=== PATIENT | male | born 1965 | race Caucasian/White ===

== ENCOUNTER 2023-02-20 11:14 | Outpatient (OUT) | payer OTHER, SELFPAY ==
--- NOTE | 2023-02-20 11:29 | PM.CN ---
Consult Note: HPI Data of Consult Patient: known to practice within the last 3 years Requesting Physician: Poly Kurtz NP Primary Care Provider: RICO MCDONNELL Consult Narrative Reason for consult: 3 month f/u Narrative: Jose Forde a pleasant 57 year old male presents for evaluation of chronic back pain responsive to medication therapy, today rating pain 2/10. Patient denies any side effects from current medication regimen. Showing functional improvement. cc:: CC: Poly Kurtz NP Review of Systems ROS Status of ROS 10 or more systems reviewed and unremarkable except as noted in history and below Musculoskeletal Reports: back pain Meds Home Medications and Allergies Home Medications Medication Instructions Recorded Confirmed Type oxycodone-acetaminophen 5 mg-325 1 tab PO DAILY PRN pain #30 tabs 02/20/23 Rx mg tablet (Percocet) Exam Constitutional Documenting provider has reviewed patient's vital signs: yes Common normals: no apparent distress, oriented x3, healthy appearing, alert and well nourished General appearance: cooperative Nutritional appearance: overweight HENMT Common normals: normocephalic, hearing grossly normal bilaterally and moist oral mucous membranes Head and scalp: normocephalic Other: patient requesting keflex for ear infection was seen by urgent care and prescribed drops. encouraged to follow up with PCP Eye Common normals: PERRL Pupil: PERRL Neck & C-Spine Common normals: full ROM General: normal visual inspection Chest Common normals: inspection of chest normal Respiratory Common normals: normal respiratory effort, no retractions and no use of accessory muscles Back & Pelvis Thoracic spine/upper back: ROM limited, pain with ROM and other soft tissue findings (hardware palpable) Lumbar spine/lower back: normal to inspection, lumbar ROM normal and straight leg raise negative bilaterally Extremity Common normals: normal to inspection, full ROM, no joint enlargement, no calf tenderness and no pedal edema Neuro Common normals: oriented x3, CN's II-XII intact bilaterally, moves all extremities, no focal motor deficits, no sensory deficits noted and deep tendon reflexes 2+ bilaterally Sensorium/orientation: alert Motor exam: strength 5/5 throughout and no movement abnormalities noted Psych Common normals: mental status grossly normal, thought process normal, cooperative, affect normal, speech normal and activity/motor behavior normal Speech: normal speech Thought process: normal thought process Results Additional Findings Additional findings: I have checked an OARRS report on this patient today and there are no aberrancies noted in the prescribing history.?? A drug screen was completed and reviewed within the last year, and if there has not been a drug screen completed we ordered one today to monitor higher risk, state monitored pain medication use. As part of providing excellent, safe, comprehensive care, the following was completed at our patient's visit: 1. A medication reconciliation and review to ensure accurate knowledge of current/active medications, including asking our patients to inform us about any [id number] medications or herbal remedies/nutritional supplements/alternative remedies. 2. A review to specifically ensure our patients have had annual screening for: elevated body mass index (BMI), tobacco use, screening for depression, and screening for unhealthy alcohol use. When screening is concerning, patients are provided with education and the specific recommendation to discuss the concerning health issue and treatment options with their primary care provider. Assessment and Plan Assessment and Plan (1) Thoracic spondylosis: (2) Chronic prescription opiate use: Assessment and Plan: I have refilled the patient's opioid prescriptions at the above noted dose and schedule.? I feel these medications are improving the patient's quality of life and allow them to tolerate activities of daily living as well as participate in recreational activity.? The patient does not report intolerable side effects. The patient is NOT opioid naive and non-pharmacologic and non-opioid treatment has failed to significantly relieve the patient's pain and improve functionality. The patient has a diagnosis that is related to a somatic or visceral pain etiology. ? ?? I reviewed with the patient the potential risks and side effects with the use of?opioid medications including but not limited to respiratory depression,? sedation, and even . I verified the patient has access to naloxone should?these effects occur. I advised the patient to avoid the use of any other? sedation substances including alcohol, THC, and benzodiazepines while?taking opioid medications due to the risk of compounding side effects and? detrimental outcomes. I reviewed the [employer]CIAL [employer]OCIATE, pain treatment agreement, urine?drug screen, and opioid start talking forms. The patient was advised to let? their family know they had Naloxone in case they would need to administer?the medication.? ?? A drug screen was completed within the last year, and no aberrancies were noted regarding their use of controlled substances. The patient understands they are subject to the terms and conditions of the pain contract that they have signed. ? ?? I have checked an OARRS report on this patient today and there are no aberrancies noted in the prescribing history.? (3) Muscle spasm: Plan refill and continue percocet 5-325mg QD PRN pain continue tizanidine 8mg HS f/u with pcp for ear infection f/u 3 months
== END 2023-02-20 11:15 | disposition home or self-care (01) ==
PROVIDERS: PCP Family Medicine; Visit Provider Nurse Practitioner
DX: M47.814 Spondylosis without myelopathy or radiculopathy, thoracic region (principal); Z79.891 Long term (current) use of opiate analgesic
CPT/HCPCS: G0463

== ENCOUNTER 2023-05-07 10:42 | Outpatient (OUT) | payer OTHER, SELFPAY ==
--- NOTE | 2023-05-07 11:04 | P.CN_ITS ---
Consult Note: HPI Data of Consult Patient: known to practice within the last 3 years Requesting Physician: Poly Kurtz NP Primary Care Provider: RICO MCDONNELL Consult Narrative Reason for consult: f/u Narrative: Jose Forde a pleasant 57 year old male presents for evaluation and management of chronic back pain post surgical repair. Patient has been doing well on current medication regimen, noticing improvement in pain and function, no side effects from medications. Pain today 2/10 pressure worse with activity, improved with rest. cc:: CC: Poly Kurtz NP Review of Systems ROS Status of ROS 10 or more systems reviewed and unremarkable except as noted in history and below Musculoskeletal Reports: back pain Meds Home Medications and Allergies Home Medications Medication Instructions Recorded Confirmed Type atorvastatin 10 mg tablet (Lipitor) 10 mg PO DAILY 02/20/23 02/20/23 History hydrochlorothiazide 25 mg tablet 25 mg PO DAILY 02/20/23 02/20/23 History losartan 100 mg tablet 100 mg PO DAILY 02/20/23 02/20/23 History metoprolol tartrate 100 mg tablet 100 mg PO BID 02/20/23 02/20/23 History (Lopressor) oxycodone-acetaminophen 5 mg-325 1 tab PO DAILY 02/20/23 02/20/23 History mg tablet (Percocet) oxycodone-acetaminophen 5 mg-325 1 tab PO DAILY PRN pain #30 tabs 02/20/23 Rx mg tablet (Percocet) spironolactone 25 mg tablet 25 mg PO DAILY 02/20/23 02/20/23 History (Aldactone) tizanidine 6 mg capsule 8 mg PO DAILY 02/20/23 02/20/23 History oxycodone-acetaminophen 5 mg-325 1 tab PO DAILY PRN pain #30 tabs 03/25/23 Rx mg tablet (Percocet) Allergies Allergy/AdvReac Type Severity Reaction Status Date / Time No Known Drug Allergies Allergy Verified 02/20/23 12:36 Exam Constitutional Documenting provider has reviewed patient's vital signs: yes Common normals: no apparent distress, oriented x3, healthy appearing, alert and well nourished General appearance: cooperative Nutritional appearance: overweight HENMT Common normals: normocephalic, hearing grossly normal bilaterally and moist oral mucous membranes Head and scalp: normocephalic Eye Common normals: PERRL Pupil: PERRL Neck & C-Spine Common normals: full ROM General: normal visual inspection Chest Common normals: inspection of chest normal Respiratory Common normals: normal respiratory effort, no retractions and no use of accessory muscles Back & Pelvis Thoracic spine/upper back: ROM limited, pain with ROM and other soft tissue findings (hardware palpable) Lumbar spine/lower back: normal to inspection, lumbar ROM normal and straight leg raise negative bilaterally Extremity Common normals: normal to inspection, full ROM, no joint enlargement, no calf tenderness and no pedal edema Neuro Common normals: oriented x3, CN's II-XII intact bilaterally, moves all extremities, no focal motor deficits, no sensory deficits noted and deep tendon reflexes 2+ bilaterally Sensorium/orientation: alert Motor exam: strength 5/5 throughout and no movement abnormalities noted Psych Common normals: mental status grossly normal, thought process normal, cooperative, affect normal, speech normal and activity/motor behavior normal Speech: normal speech Thought process: normal thought process Results Additional Findings Additional findings: I have checked an OARRS report on this patient today and there are no aberrancies noted in the prescribing history.?? A drug screen was completed and reviewed within the last year, and if there has not been a drug screen completed we ordered one today to monitor higher risk, state monitored pain medication use. As part of providing excellent, safe, comprehensive care, the following was completed at our patient's visit: 1. A medication reconciliation and review to ensure accurate knowledge of current/active medications, including asking our patients to inform us about any [id number] medications or herbal remedies/nutritional supplements/alternative remedies. 2. A review to specifically ensure our patients have had annual screening for: elevated body mass index (BMI), tobacco use, screening for depression, and screening for unhealthy alcohol use. When screening is concerning, patients are provided with education and the specific recommendation to discuss the concerning health issue and treatment options with their primary care provider. Assessment and Plan Assessment and Plan (1) Chronic prescription opiate use: Assessment and Plan: Medications help patient to complete ADLs, care for self, work I have refilled the patient's opioid prescriptions at the above noted dose and schedule.? I feel these medications are improving the patient's quality of life and allow them to tolerate activities of daily living as well as participate in recreational activity.? The patient does not report intolerable side effects. The patient is NOT opioid naive and non-pharmacologic and non-opioid treatment has failed to significantly relieve the patient's pain and improve functionality. The patient has a diagnosis that is related to a somatic or visceral pain etiology. ? ?? I reviewed with the patient the potential risks and side effects with the use of?opioid medications including but not limited to respiratory depression,? sedation, and even . I verified the patient has access to naloxone should?these effects occur. I advised the patient to avoid the use of any other? sedation substances including alcohol, THC, and benzodiazepines while?taking opioid medications due to the risk of compounding side effects and? detrimental outcomes. I reviewed the [employer] CH[employer]LYST, pain treatment agreement, urine?drug screen, and opioid start talking forms. The patient was advised to let? their family know they had Naloxone in case they would need to administer?the medication.? ?? A drug screen was completed within the last year, and no aberrancies were noted regarding their use of controlled substances. The patient understands they are subject to the terms and conditions of the pain contract that they have signed. ? ?? I have checked an OARRS report on this patient today and there are no aberrancies noted in the prescribing history.? (2) Thoracic spondylosis: (3) Muscle spasm: Plan refill and continue percocet 5-325mg QD PRN pain continue tizanidine 8mg HS continue PRN ibuprofen f/u 3 months for medication management
== END 2023-05-07 10:43 | disposition home or self-care (01) ==
PROVIDERS: PCP Family Medicine; Visit Provider Nurse Practitioner
DX: M47.814 Spondylosis without myelopathy or radiculopathy, thoracic region (principal); Z79.891 Long term (current) use of opiate analgesic; M62.838 Other muscle spasm
CPT/HCPCS: G0463

== ENCOUNTER 2023-08-06 10:23 | Outpatient (OUT) | payer OTHER, SELFPAY ==
--- OUTSIDE RECORDS SUMMARY | 2023-08-06 10:26 | XMS_ITS | CCD ---
Author Name Unknown Address [address] [place] [id number] Organization [facility] Care Team Providers Care Soubrette Name Role Phone LAKSHMIPATHY ., NARENDRANATH Admitting Ryann vailable JOANNESHMIPATHY ., NARENDRANATH Attending Ryann vailable SATHYA, DR GÓMEZ Primary Care Unavailable HALKER ., FILIBERTO Consulting Unavailable NEWTON ., DR MATHIEU Ivory Admitting Unavailable NEWTON ., DR MATHIEU Ivory Attending Unavailable SATHYA, DR GÓMEZ [facility] Care Unavailable OSEI ., NICKOLAS Consulting Unavailable SATHYA, DR GÓMEZ [facility] Care Unavailable OSEI ., NICKOLAS Admitting Unavailable OSEI ., NICKOLAS Attending Unavailable GA, DR THANG Escobedo Consulting Unavailable OSEI ., NICKOLAS Consulting Unavailable NEWTON ., DR MATHIEU Ivory Admitting Unavailable NEWTON ., DR MATHIEU Ivory Attending Unavailable SATHYA, DR GÓMEZ [facility] Care Unavailable OSEI ., NICKOLAS Consulting Unavailable NEWTON ., DR MATHIEU Ivory Admitting Unavailable NEWTON ., DR MATHIEU Ivory Attending Unavailable SATHYA, DR GÓMEZ [facility] Care Unavailable OSEI ., NICKOLAS Consulting Unavailable NEWTON ., DR MATHIEU Ivory Admitting Unavailable NEWTON ., DR MATHIEU Ivory Attending Unavailable SATHYA, DR GÓMEZ [facility] Unavailable OSEI ., NICKOLAS Consulting Unavailable RICO MCDONNELL Attending Unavailable Problems Active Problems Problem Classification Problem Date Documented Date Episodic/Chronic Osteoarthritis (5 sources) Unilateral primary osteoarthritis, left knee; Translations: [UNI PRIM OSTEOARTHRITIS LT KNEE] Onset: 02-04-2022 Chronic Spondylosis; intervertebral disc disorders; other back problems (6 sources) Spondylosis without myelopathy or radiculopathy, thoracic region; Translations: [Other intervertebral disc degeneration, thoracic region] Onset: 11-08-2021 Chronic Spondylosis; intervertebral disc disorders; other back problems (1 source) Pain in thoracic spine; Translations: [PAIN IN THORACIC SPINE] Onset: 08-05-2022 Episodic Unclassified (4 sources) LOW BACK PAIN, UNSPECIFIED; Translations: [LOW BACK PAIN, UNSPECIFIED] Onset: 05-06-2022 Past or Other Problems Problem Classification Problem Date Documented Da te Episodic/Chronic Other non-traumatic joint disorders (1 source) Effusion, left knee; Translations: [EFFUSION LEFT KNEE] Onset: 02-01-2022 Episodic Other non-traumatic joint disorders (4 sources) Pain in left knee; Translations: [PAIN IN LEFT KNEE] Onset: 01-31-2022 Episodic Unclassified (1 source) LOW BACK PAIN, UNSPECIFIED; Translations: [LOW BACK PAIN, UNSPECIFIED] Onset: 05-02-2022 Encounters Encounter Date Encounter Type Care Provider Facility Start: 05-08-2023 End: 05-08-2023 ambulatory RICO MCDONNELL Not Available Start: 11-01-2022 End: 11-02-2022 ambulatory ALEJANDRO WILSON . Facility: Start: 08-01-2022 End: 08-02-[address] MATHIEU NEWTON . Facility:[facility] Start: 05-02-2022 End: 05-03-[address] MATHIEU NEWTON . Facility:[facility] Start: 01-31-2022 End: 02-01-[address] RICO MCDONNELL Facility:[facility] Start: 01-31-2022 End: 02-01-[address] MATHIEU NEWTON . Facility:[facility] Start: 11-08-2021 End: 11-09-[address] MATHIEU NEWTON . Facility: Payers Date Payer Category Payer Private Health Insurance [id number] 1965 Unknown [id number] 2.16.84 [id number] 1965 Unknown [id number] 2.16.84 [id number] 1965 Unknown [id number] 2.16.84 [id number] 1965 Unknown [id number] 2.16.84 [id number] 1965 Unknown [id number] 2.16.84 [id number] 1965 Unknown [id number] 2.16.84 [id number] 1965 Unknown [id number] 1959 Self-pay 1959 Unknown [id number] Consultation note 08-01-2022 Note Date & Type Note Facility 08-01-2022 Note CONSULTATION CONSULTATION DATE: 08/01/2022 HISTORY OF PRESENT ILLNESS: This is a 67-year-old gentleman who returns to the clinic for a three month follow up for his chronic mid back pain and left knee pain. Patient did have left knee x-rays completed, which were reviewed, showing moderate tricompartmental osteoarthropathy with joint space narrowing. In regards to the patient's back, he states he has been maintaining and feels his pain is manageable. His pain is rated at 2/10 and described as achy. It will increase with activities such housework, lifting, reaching and bending. He does use heat occasionally which does decrease his pain. Medications include ibuprofen 400 mg 2-3 times a day, Percocet 5/325 daily and tizanidine 8 mg at night time. Patient's REVIEW OF SYSTEMS / PAST MEDICAL HISTORY / ALLERGIES and IMAGES have been reviewed and noted on the chart. PHYSICAL EXAM: VITAL SIGNS: Blood pressure is 136/91. Heart rate is 89. Temperature is 97.1. He is 5'9 and weighs 109 kg. GENERAL IMPRESSION: Pleasant, appropriate, in no acute distress. FOCUSED EXAM - BACK: Range of motion is functional in lateral rotation and flexion/extension. Mild point tenderness along the thoracic facets of T3, T4, T5, T6 upon compression of the thoracic facets. Thoracic trapezius muscles are spasmodic bilaterally, right greater than left. MUSCULOSKELETAL: Upper and lower extremities motor is 5/5. Patient ambulates unassisted. NEUROLOGICAL: Radicular sensory is intact. Negative polyneuropathy. DIAGNOSIS: Left knee osteoarthritis, chronic lower back pain and thoracic pain. PLAN: We will refill his Percocet 5/325 daily and I encouraged him to do extension exercises multiple times throughout the day. We will see him in three months' time unless otherwise indicated. Patient agrees with this plan. [facility] Consultation note 05-02-2022 Note Date & Type Note Facility 05-02-2022 Note CONSULTATION CONSULTATION DATE: 05/02/2022 HISTORY OF PRESENT ILLNESS: This is a 56-year-old gentleman returning to the clinic for a three month appointment for medication maintenance and refills. Patient has been a [facility] patient of the [facility] and has mid and lower back pain. Today, his pain is 2/10 at rest, will increase to 5/10 with activities. Those activities are twisting, pushing, pulling, standing, walking, bending and lifting. Riding in the car for a prolonged period of time results in leg numbness. He does use heat which is beneficial. Medications include Percocet 5/325 daily p.r.n., tizanidine 8 mg q.h.s. and ibuprofen. He is compliant with a vitamin regimen. He denies any new pain pattern, injuries or falls. Patient's REVIEW OF SYSTEMS / PAST MEDICAL HISTORY / ALLERGIES and IMAGES have been reviewed and they are noted on the chart. PHYSICAL EXAM: VITAL SIGNS: Blood pressure is 145/88. Heart rate is 56. Temperature is 97.7. He is 5'9 , weighs 106 kg. GENERAL IMPRESSION: Pleasant, appropriate, no acute distress. FOCUSED EXAM - BACK: Range of motion is functional in lateral rotation and flexion/extension. Paravertebral muscles are taut, right greater than left and spasmodic. Mild spinal axial pain to compression along the thoracic facets of T9, T10 and T11, T12 bilaterally. MUSCULOSKELETAL: Motor is intact, 5/5 bilaterally. Patient has good muscle tone and a stable gait. NEUROLOGICALLY: Patient is cognitively intact and radicular sensory is intact. Negative polyneuropathy. DIAGNOSIS: Chronic lower back pain, thoracic pain, thoracic spondylosis. PLAN: We will refill his Percocet 5/325 daily and Zanaflex 8 mg q.h.s. for a 30 day supply. Education was reinforced regarding nutrition, vitamins and supportive measures, such as heat and a menthol heat rub. We will see him in three months' time unless otherwise indicated. Patient agrees with this plan. [facility] Clinical Note 01-31-2022 Note Date & Type Note Facility 01-31-2022 Note PROCEDURE: XR KNEE L T 4V or > COMPARISON: None. HISTORY: Pain in left knee FINDINGS: BONES:No acute fracture or dislocation. Moderate tricompartmental osteoarthropathy with joint space narrowing marginal osteophyte formation. Surgical jay from prior anterior cruciate ligament repair. SOFT TISSUES:Negative. No visible soft tissue swelling. EFFUSION:Moderate to large suprapatellar joint effusion OTHER: Negative. IMPRESSION: Moderate osteoarthritis with joint effusion Electronically authenticated by: THANG KOROMA Date: 2022-01-31 18:30 [facility] Consultation note 01-31-2022 Note Date & Type Note Facility 01-31-2022 Note CONSULTATION CONSULTATION DATE: 01/31/2022 HISTORY OF PRESENT ILLNESS: This is a 56-year-old gentleman, returning to the clinic for a three month follow up for his chronic middle back pain and left knee pain. He was last seen on 11/08/2021 which, at that time, he had low level pain rated at 2/10 and an ache. Today, he does rate his pain 2/10, but it is primarily in his left knee. He did have an ACL repair back in the mid 1980s and has otherwise done well, with the exception of this past month or so, as he is feeling increased pain with grinding, going up stairs and physical activity. He is reporting that his mid back pain is about a 1/10 and uses his pool daily to do pool exercises and extension exercises. He does have an inversion table but is not using that. He is in need of a Zanaflex refill, 8 mg nightly. Current medications include Lipitor, Percocet 5/325 daily, Zanaflex 8 mg q.h.s. Patient's REVIEW OF SYSTEMS / PAST MEDICAL HISTORY / ALLERGIES and IMAGES have been reviewed and they are noted on the chart. PHYSICAL EXAM: VITAL SIGNS: Blood pressure 146/85, heart rate is 68. Temperature is 97.5. He is 5'9 , weighs 104.1 kg. GENERAL APPEARANCE: Pleasant, appropriate, no acute distress. FOCUSED EXAM: Left knee with slight anterior medial point tenderness to deep compression. Range of motion is intact. Increased pain in flexion. No crepitus or effusion noted. BACK: Range of motion is function in lateral rotation and flexion/extension. Paravertebral tightness is noted, mid thoracic and up. Mild reproduction of spinal axial pain to compression of T6 and T7 to the right. MUSCULOSKELETAL: Motor is intact bilateral lower extremities, 5/5. NEUROLOGICALLY: Radicular sensory is intact. Negative polyneuropathy. Bilateral patellar and Achilles reflexes are +2. IMPRESSION: Left knee pain, left knee osteoarthritis and thoracic pain. PLAN: We will obtain baseline knee x-rays with it including four views. I did discuss steroid knee injections with the patient. He would like to hold off at this time, but may think of it as the cold weather approaches and his pain increases. Education was given regarding continuing extension exercises, pool exercises as well inversion table daily. We will refill his Zanaflex 8 mg q.h.s. Patient agrees with the plan of care, will be seen in three months' time unless otherwise indicated. [facility] Consultation note 11-08-2021 Note Date & Type Note Facility 11-08-2021 Note CONSULTATION CONSULTATION DATE: 11/08/2021 This is a pleasant 56-year-old gentleman returning to the clinic for his 3-month follow-up for his chronic thoracic back pain. The patient does have a history of T12 compression fracture and thoracic degenerative disk. His pain is minimal today, described as 2 out of 10 and an ache. It at this time does not keep him from activities. Twisting, turning, pushing, pulling, reaching and lifting does aggravate his pain. The use of heat and lying down decreases his pain. He denies any new radicular pain or pain pattern. He is just here for medication refill today. The patient's current medications are Zanaflex 4 mg q.h.s. which she needs a refill of, Percocet 5/325 q. day and Lipitor 10 mg q. day. He does take multivitamins including turmeric and vitamin C. REVIEW OF SYSTEMS, PAST MEDICAL HISTORY, ALLERGIES AND IMAGES: Have been reviewed and noted in the chart. PHYSICAL EXAM: VITAL SIGNS: Blood pressure 131/81, heart rate is 56, temperature is 97.3. Height is 5'9 , weighs 105 kg. GENERAL APPEARANCE: Pleasant, appropriate, no acute distress. FOCUSED EXAM: BACK: Reproduction of the spinoaxial pain noted to direct compression along the thoracic facets of T10, T11, T12, L1 bilaterally. Paravertebral muscles are taut but non-spasmodic. Range of motion is functional, lateral rotation and flexion-extension. MUSCULOSKELETAL: Lower extremities area intact, 4 out of 5 bilaterally. Does not use assistive device. Ambulates with a steady gait. NEUROLOGICAL: Negative polyneuropathy, patellar Achilles tendons are +1 bilaterally. DIAGNOSIS: Thoracic spondylosis, thoracic degenerative disk and history of T12 compression fracture. PLAN: Overall the patient is doing great. We will continue to maintain his medications of Percocet 5/325 q. day and Zanaflex 8 mg q. h.s. Nutrition and vitamin importance was discussed as well. We will follow the patient up in three months' time unless otherwise indicated and the patient agrees with the plan of care. [facility] Signed and Approved by: NICKOLAS OSEI . 11/12/2021 15:06:00 [facility] Summary Purpose Family History No Family History Records FoundNo Family History Records Found Advance Directives No Advanced Directives Records FoundNo Advanced Directives Records Found Additional Source Comments (unrecognized sect ion and content) No Status Records FoundNo Status Records Found INFORMATION SOURCE (unrecogn ized section and content) DATE CREATED AUTHOR 11/02/2022 [facility] DATE CREATED AUTHOR 'S ORGANIZ ATION 05/10/2023 [facility] EPIC FOR RECORDS PERTAINING TO PATIENTS WHO ARE OR HAVE BEEN ENROLLED IN A CHEMICAL DEPENDENCY/SUBSTANCEABUSE PROGRAM, SOME INFORMATION MAY BE OMITTED. This clinical summary was aggregated from multiple sources. Caution should be exercised in using it in the provision of clinical care. This summary normalizes information from multiple sources, and as a consequence, information in this document may materially change the coding, format and clinical context of patient data. In addition, data may be omitted in some cases. CLINICAL DECISIONS SHOULD BE BASED ON THE PRIMARY CLINICAL RECORDS. [facility] [employer] provides no warranty or guarantee of the accuracy or completeness of information in this document.
--- NOTE | 2023-08-06 10:51 | P.CN_ITS ---
Consult Note: HPI Data of Consult Patient: known to practice within the last 3 years Requesting Physician: Poly Kurtz NP Primary Care Provider: RICO MCDONNELL Consult Narrative Reason for consult: f/u Narrative: Jose Forde a pleasant 57 year old male presents for evaluation and management of chronic back pain post surgical repair. Patient has been doing well on current medication regimen, noticing improvement in pain and function, no side effects from medications. Pain today 2/10 pressure worse with activity, improved with rest. patient reports no changes since last. cc:: CC: Poly Kurtz NP Review of Systems ROS Status of ROS 10 or more systems reviewed and unremark able except as noted in history and below Musculoskeletal Reports: back pain Meds Home Medications and Allergies Home Medications Medication Instructions Recorded Confirmed Type atorvastatin 10 mg tablet (Lipitor) 10 mg PO DAILY 02/20/23 02/20/23 History hydrochlorothiazide 25 mg tablet 25 mg PO DAILY 02/20/23 02/20/23 History losartan 100 mg tablet 100 mg PO DAILY 02/20/23 02/20/23 History metoprolol tartrate 100 mg tablet 100 mg PO BID 02/20/23 02/20/23 History (Lopressor) oxycodone-acetaminophen 5 mg-325 1 tab PO DAILY 02/20/23 02/20/23 History mg tablet (Percocet) oxycodone-acetaminophen 5 mg-325 1 tab PO DAILY PRN pain #30 tabs 02/20/23 Rx mg tablet (Percocet) spironolactone 25 mg tablet 25 mg PO DAILY 02/20/23 02/20/23 History (Aldactone) tizanidine 6 mg capsule 8 mg PO DAILY 02/20/23 02/20/23 History oxycodone-acetaminophen 5 mg-325 1 tab PO DAILY PRN pain #30 tabs 03/25/23 Rx mg tablet (Percocet) oxycodone-acetaminophen 5 mg-325 1 tab PO DAILY PRN pain #30 tabs 05/07/23 Rx mg tablet (Percocet) tizanidine 4 mg capsule 8 mg (2 x 4 mg) PO .qhs PRN muscle 05/07/23 Rx spasticity #180 caps oxycodone-acetaminophen 5 mg-325 1 tab PO DAILY PRN pain #30 tabs 05/29/23 Rx mg tablet (Percocet) oxycodone-acetaminophen 5 mg-325 1 tab PO DAILY PRN pain #30 tabs 06/25/23 Rx mg tablet (Endocet) Allergies Allergy/AdvReac Type Severity Reaction Status Date / Time No Known Drug Allergies Allergy Verified 02/20/23 12:36 Exam Constitutional Documenting provider has reviewed patient's vital signs: yes Common normals: no apparent distress, oriented x3, healthy appearing, alert and well nourished General appearance: cooperative Nutritional appearance: overweight HENMT Common normals: normocephalic, hearing grossly normal bilaterally and moist oral mucous membranes Head and scalp: normocephalic Eye Common normals: PERRL Pupil: PERRL Neck & C-Spine Common normals: full ROM General: normal visual inspection Chest Common normals: inspection of chest normal Respiratory Common normals: normal respiratory effort, no retractions and no use of accessory muscles Back & Pelvis Thoracic spine/upper back: ROM limited, pain with ROM and other soft tissue findings (hardware palpable) Lumbar spine/lower back: normal to inspection, lumbar ROM normal and straight leg raise negative bilaterally Extremity Common normals: normal to inspection, full ROM, no joint enlargement, no calf tenderness and no pedal edema Neuro Common normals: oriented x3, CN's II-XII intact bilaterally, moves all extremities, no focal motor deficits, no sensory deficits noted and deep tendon reflexes 2+ bilaterally Sensorium/orientation: alert Motor exam: strength 5/5 throughout and no movement abnormalities noted Psych Common normals: mental status grossly normal, thought process normal, cooperative, affect normal, speech normal and activity/motor behavior normal Speech: normal speech Thought process: normal thought process Results Additional Findings Additional findings: I have checked an [place]AR[place] report on this patient today and there are no aberrancies noted in the prescribing history.?? A drug screen was completed and reviewed within the last year, and if there has not been a drug screen completed we ordered one today to monitor higher risk, state monitored pain medication use. As part of providing excellent, safe, comprehensive care, the following was completed at our patient's visit: 1. A medication reconciliation and review to ensure accurate knowledge of current/active medications, including asking our patients to inform us about any [id number] medications or herbal remedies/nutritional supplements/alternative remedies. 2. A review to specifically ensure our patients have had annual screening for: elevated body mass index (BMI), tobacco use, screening for depression, and screening for unhealthy alcohol use. When screening is concerning, patients are provided with education and the specific recommendation to discuss the concerning health issue and treatment options with their primary care provider. Assessment and Plan Assessment and Plan (1) Chronic prescription opiate use: Assessment and Plan: Medications help patient to complete ADLs, care for self, work I have refilled the patient's opioid prescriptions at the above noted dose and schedule.? I feel these medications are improving the patient's quality of life and allow them to tolerate activities of daily living as well as participate in recreational activity.? The patient does not report intolerable side effects. The patient is NOT opioid naive and non-pharmacologic and non-opioid treatment has failed to significantly relieve the patient's pain and improve functionality. The patient has a diagnosis that is related to a somatic or visceral pain etiology. ? ?? I reviewed with the patient the potential risks and side effects with the use of?opioid medications including but not limited to respiratory depression,? sedation, and even . I verified the patient has access to naloxone should?these effects occur. I advised the patient to avoid the use of any other? sedation substances including alcohol, THC, and benzodiazepines while?taking opioid medications due to the risk of compounding side effects and? detrimental outcomes. I reviewed the [employer], pain treatment agreement, urine?drug screen, and opioid start talking forms. The patient was advised to let? their family know they had Naloxone in case they would need to administer?the medication.? ?? A drug screen was completed within the last year, and no aberrancies were noted regarding their use of controlled substances. The patient understands they are subject to the terms and conditions of the pain contract that they have signed. ? ?? I have checked an OARRS report on this patient today and there are no aberrancies noted in the prescribing history.? (2) Thoracic spondylosis: (3) Muscle spasm: Plan Update UDS today continue percocet 5-325mg QD PRN pain continue tizanidine 8mg HS continue PRN ibuprofen f/u 3 months for medication management
== END 2023-08-06 10:24 | disposition home or self-care (01) ==
PROVIDERS: PCP Family Medicine; Visit Provider Nurse Practitioner
DX: Z79.891 Long term (current) use of opiate analgesic (principal); M62.838 Other muscle spasm; M47.814 Spondylosis without myelopathy or radiculopathy, thoracic region
CPT/HCPCS: G0463

== ENCOUNTER 2023-11-05 09:49 | Outpatient (OUT) | payer OTHER, SELFPAY ==
--- NOTE | 2023-11-05 10:19 | P.CN_ITS ---
Consult Note: HPI Data of Consult Patient: known to practice within the last 3 years Requesting Physician: Poly Kurtz NP Primary Care Provider: RICO MCDONNELL Consult Narrative Reason for consult: f/u Narrative: Jose Forde a pleasant 57 year old male presents for evaluation and management of chronic back pain post surgical repair. Patient has been doing well on current medication regimen, noticing improvement in pain and function, no side effects from medications. Pain today 4/10 pressure worse with activity, improved with rest. patient reports increase in muscle pain and stiffness due to recent strenuous activity. cc:: CC: Poly Kurtz NP Review of Systems ROS Status of ROS 10 or more systems reviewed and unremark able except as noted in history and below Musculoskeletal Reports: back pain Meds Home Medications and Allergies Home Medications ?Medication ?Instructions ?Recorded ?Confirmed ?Type atorvastatin 10 mg tablet (Lipitor) 10 mg PO DAILY 02/20/23 02/20/23 History hydrochlorothiazide 25 mg tablet 25 mg PO DAILY 02/20/23 02/20/23 History losartan 100 mg tablet 100 mg PO DAILY 02/20/23 02/20/23 History metoprolol tartrate 100 mg tablet 100 mg PO BID 02/20/23 02/20/23 History (Lopressor) oxycodone-acetaminophen 5 mg-325 1 tab PO DAILY 02/20/23 02/20/23 History mg tablet (Percocet) oxycodone-acetaminophen 5 mg-325 1 tab PO DAILY PRN pain #30 tabs 02/20/23 Rx mg tablet (Percocet) spironolactone 25 mg tablet 25 mg PO DAILY 02/20/23 02/20/23 History (Aldactone) tizanidine 6 mg capsule 8 mg PO DAILY 02/20/23 02/20/23 History oxycodone-acetaminophen 5 mg-325 1 tab PO DAILY PRN pain #30 tabs 03/25/23 Rx mg tablet (Percocet) oxycodone-acetaminophen 5 mg-325 1 tab PO DAILY PRN pain #30 tabs 05/07/23 Rx mg tablet (Percocet) tizanidine 4 mg capsule 8 mg (2 x 4 mg) PO .qhs PRN muscle 05/07/23 Rx spasticity #180 caps oxycodone-acetaminophen 5 mg-325 1 tab PO DAILY PRN pain #30 tabs 05/29/23 Rx mg tablet (Percocet) oxycodone-acetaminophen 5 mg-325 1 tab PO DAILY PRN pain #30 tabs 06/25/23 Rx mg tablet (Endocet) oxycodone-acetaminophen 5 mg-325 1 tab PO DAILY PRN pain #30 tabs 08/06/23 Rx mg tablet (Percocet) tizanidine 4 mg tablet 8 mg (2 x 4 mg) PO BEDTIME PRN 08/06/23 Rx muscle spasticity #180 tabs oxycodone-acetaminophen 5 mg-325 1 tab PO DAILY PRN pain #30 tabs 08/27/23 Rx mg tablet (Percocet) oxycodone-acetaminophen 5 mg-325 1 tab PO DAILY PRN pain #30 tabs 10/01/23 Rx mg tablet (Percocet) Allergies Allergy/AdvReac Type Severity Reaction Status Date / Time No Known Drug Allergies Allergy Verified 02/20/23 12:36 Exam Constitutional Documenting provider has reviewed patient's vital signs: yes Common normals: no apparent distress, oriented x3, healthy appearing, alert and well nourished General appearance: cooperative Nutritional appearance: overweight HENMT Common normals: normocephalic, hearing grossly normal bilaterally and moist oral mucous membranes Head and scalp: normocephalic Eye Common normals: PERRL Pupil: PERRL Neck & C-Spine Common normals: full ROM General: normal visual inspection Chest Common normals: inspection of chest normal Respiratory Common normals: normal respiratory effort, no retractions and no use of accessory muscles Back & Pelvis Thoracic spine/upper back: ROM limited, pain with ROM, paraspinal muscle tenderness and other soft tissue findings (hardware palpable) Lumbar spine/lower back: normal to inspection, lumbar ROM normal and straight leg raise negative bilaterally Extremity Common normals: normal to inspection, full ROM, no joint enlargement, no calf tenderness and no pedal edema Neuro Common normals: oriented x3, CN's II-XII intact bilaterally, moves all extremities, no focal motor deficits, no sensory deficits noted and deep tendon reflexes 2+ bilaterally Sensorium/orientation: alert Motor exam: strength 5/5 throughout and no movement abnormalities noted Psych Common normals: mental status grossly normal, thought process normal, cooperative, affect normal, speech normal and activity/motor behavior normal Speech: normal speech Thought process: normal thought process Results Additional Findings Additional findings: If on a controlled substance or opioids, I have checked an OARRS report on this patient and there are no aberrancies noted in the prescribing history.??If on a controlled substance or opioid a drug screen was completed and reviewed within the last year, and if there has not been a drug screen completed we ordered one today to monitor higher risk, state monitored pain medication use. As part of providing excellent, safe, comprehensive care, the following was completed at our patient's visit: 1. A medication reconciliation and review to ensure accurate knowledge of current/active medications, including asking our patients to inform us about any tmxk-haf-ljyqnnw medications or herbal remedies/nutritional supplements/alternative remedies. 2. A review to specifically ensure our patients have had annual screening for screening for depression, screening for tobacco use, and screening for unhealthy alcohol use. For concerning screenings had a discussion with the patient, provided patient education, and recommended follow-up with primary care provider when appropriate. If patient noted with a risk of falling, they received ed ucation on strength, gait, and balance training to prevent future risk of falling. Assessment and Plan Assessment and Plan (1) Chronic prescription opiate use: Assessment and Plan: Medications help patient to complete ADLs, care for self, work I have refilled the patient's opioid prescriptions at the above noted dose and schedule.? I feel these medications are improving the patient's quality of life and allow them to tolerate activities of daily living as well as participate in recreational activity.? The patient does not report intolerable side effects. The patient is NOT opioid naive and non-pharmacologic and non-opioid treatment has failed to significantly relieve the patient's pain and improve functionality. The patient has a diagnosis that is related to a somatic or visceral pain etiology. ? ?? I reviewed with the patient the potential risks and side effects with the use of?opioid medications including but not limited to respiratory depression,? sedation, and even . I verified the patient has access to naloxone should?these effects occur. I advised the patient to avoid the use of any other? sedation substances including alcohol, THC, and benzodiazepines while?taking opioid medications due to the risk of compounding side effects and? detrimental outcomes. I reviewed the HUMAN FACTORS ADVISOR LEAD, pain treatment agreement, urine?drug screen, and opioid start talking forms. The patient was advised to let? their family know they had Naloxone in case they would need to administer?the medication.? ?? A drug screen was completed within the last year, and no aberrancies were noted regarding their use of controlled substances. The patient understands they are subject to the terms and conditions of the pain contract that they have signed. ? ?? I have checked an OARRS report on this patient today and there are no aberrancies noted in the prescribing history.? (2) Thoracic spondylosis: (3) Muscle spasm: Plan continue percocet 5-325mg QD PRN pain continue tizanidine 8mg HS continue PRN ibuprofen f/u 3 months for medication management, sooner if needed
== END 2023-11-05 09:50 | disposition home or self-care (01) ==
PROVIDERS: PCP Family Medicine; Visit Provider Nurse Practitioner
DX: Z79.891 Long term (current) use of opiate analgesic (principal); M47.814 Spondylosis without myelopathy or radiculopathy, thoracic region; M62.838 Other muscle spasm
CPT/HCPCS: G0463

== ENCOUNTER 2024-02-04 09:32 | Outpatient (OUT) | payer OTHER, SELFPAY ==
--- OUTSIDE RECORDS SUMMARY | 2024-02-04 09:48 | XMS_ITS | CCD ---
Author Organization [facility] Care Team Providers Care Carpet Cutter Name Role Phone LAKSHMIPATHY ., NARENDRANATH Admitting Ryann vailable LAKSHMIPATHY ., NARENDRANATH Attending Ryann vailable SATHYA, DR GÓMEZ Primary Care Unavailable HALKER ., FILIBERTO Consulting Unavailable NEWTON ., DR MATHIEU Ivory Admitting Unavailable NEWTON ., DR MATHIEU Ivory Attending Unavailable SATHYA, DR GÓMEZ [facility] Care Unavailable OSEI ., NICKOLAS Consulting Unavailable SATHYA, DR GÓMEZ [facility] Care Unavailable OSEI ., NICKOLAS Admitting Unavailable OSEI ., NICKOLAS Attending Unavailable GA, DR THANG Escobedo Consulting Unavailable OSEI ., NICKOLAS Consulting Unavailable NEWTON ., DR MATHIEU Ivory Admitting Unavailable NEWTON ., DR MATHIEU Ivory Attending Unavailable SATHYA, DR GÓMEZ [facility] Care Unavailable OSEI ., NICKOLAS Consulting Unavailable NEWTON ., DR MATHIEU Ivory Admitting Unavailable NEWTON ., DR MATHIEU Ivory Attending Unavailable SATHYA, DR GÓMEZ [facility] Unavailable OSEI ., NICKOLAS Consulting Unavailable NEWTON ., DR MATHIEU Ivory Admitting Unavailable NEWTON ., DR MATHIEU Ivory Attending Unavailable SATHYA, DR GÓMEZ [facility] Unavailable OSEI ., NICKOLAS Consulting Unavailable RICO [...] Facility Start: 05-08-2023 End: 05-08-2023 ambulatory RICO Milka SATHYA Not Available Start: 11-01-2022 End: 11-02-2022 ambulatory [...] Payer Category Payer Private Health Insurance [id number] 1965 Unknown [id number] 2.16.84 [id number] 1965 Unknown [id number] 2.16.84 [id number] 1965 Unknown [id number] 2.16.84 [id number] 1965 Unknown [id number] 2.16.84 [id number] 1965 Unknown [id number] 2.16.84 [id number] 1965 Unknown [id number] 2.16.84 [id number] 1965 Unknown [id number] 1959 Self-pay 1959 Unknown [id number] Consultation note 08-01-2022 Note Date & Type [...] indicated. Patient agrees with this plan. [facility] Consultation note 05-02-2022 Note Date & Type Note Facility 05-02-2022 Note CONSULTATION CONSULTATION DATE: 05/02/2022 HISTORY OF PRESENT ILLNESS: This is a 56-year-old gentleman returning to the clinic for a three month appointment for medication maintenance and refills. Patient has been a intermediate patient of the Pain Clinic and has [...] indicated. Patient agrees with this plan. [facility] Clinical Note 01-31-2022 Note Date & [...] by: THANG KOROMA Date: 2022-01-31 18:30 [facility] Consultation note 01-31-2022 Note Date & [...] an ACL repair back in the mid and has otherwise done well, with the [...] three months' time unless otherwise indicated. [facility] Consultation note 11-08-2021 Note Date & [...] patient agrees with the plan of care. [facility] Signed and Approved by: NICKOLAS OSEI . 11/12/2021 15:06:00 [facility] Summary Purpose Family History No Family History Records FoundNo Family History Records Found Advance Directives No Advanced Directives Records FoundNo Advanced Directives Records Found Additional Source Comments (unrecognized sect ion and content) No Status Records FoundNo Status Records Found INFORMATION SOURCE (unrecogn ized section and content) DATE CREATED AUTHOR 11/02/2022 [facility] DATE CREATED AUTHOR AUTHOR'S ORGANIZ ATION 05/10/2023 [facility] EPIC FOR RECORDS PERTAINING TO PATIENTS [...] BE BASED ON THE PRIMARY CLINICAL RECORDS. [facility] [employer] provides no warranty or guarantee of the accuracy or completeness of information in this document.
--- NOTE | 2024-02-04 10:06 | P.CN_ITS ---
Consult Note: HPI Data of Consult Patient: known to practice within the last 3 years Requesting Physician: Poly Kurtz NP Primary Care Provider: RICO MCDONNELL Consult Narrative Reason for consult: f/u Narrative: Jose Forde a pleasant 58 year old male presents for evaluation and management of chronic back pain post surgical repair. Patient has been doing well on current medication regimen, noticing improvement in pain and function, no side effects from medications. Pain today 4/10 pressure worse with activity, improved with rest. patient reports increase in muscle pain and stiffness due to recent strenuous activity. Patient has been able to continue to do housework, golf, ride in the car for long periods of time, and engage in social activities as his pain is well controlled. cc:: CC: Poly Kurtz NP Review of Systems 2 ROS0 Status of ROS 10 or more systems reviewed and unremark able except as noted in history and below Musculoskeletal Reports: back pain Meds Home Medications and Allergies Home Medications ?Medication ?Instructions ?Recorded ?Confirmed ?Type atorvastatin 10 mg tablet (Lipitor) 10 mg PO DAILY 02/20/23 02/20/23 History hydrochlorothiazide 25 mg tablet 25 mg PO DAILY 02/20/23 02/20/23 History losartan 100 mg tablet 100 mg PO DAILY 02/20/23 02/20/23 History metoprolol tartrate 100 mg tablet 100 mg PO BID 02/20/23 02/20/23 History (Lopressor) spironolactone 25 mg tablet 25 mg PO DAILY 02/20/23 02/20/23 History (Aldactone) tizanidine 4 mg tablet 8 mg (2 x 4 mg) PO DAILY PRN 11/05/23 Rx muscle spasticity #180 tabs oxycodone-acetaminophen 5 mg-325 1 tab PO DAILY PRN pain #30 tabs 02/04/24 Rx mg tablet (Percocet) Allergies Allergy/AdvReac Type Severity Reaction Status Date / Time No Known Drug Allergies Allergy Verified 02/20/23 12:36 Exam Constitutional Documenting provider has reviewed patient's vital signs: yes Common normals: no apparent distress, oriented x3, healthy appearing, alert and well nourished General appearance: cooperative Nutritional appearance: overweight HENMT Common normals: normocephalic, hearing grossly normal bilaterally and moist oral mucous membranes Head and scalp: normocephalic Eye Common normals: PERRL Pupil: PERRL Neck & C-Spine Common normals: full ROM General: normal visual inspection Chest Common normals: inspection of chest normal Respiratory Common normals: normal respiratory effort, no retractions and no use of accessory muscles Back & Pelvis Thoracic spine/upper back: ROM limited, pain with ROM, paraspinal muscle tenderness and other soft tissue findings (hardware palpable) Lumbar spine/lower back: normal to inspection, lumbar ROM normal, paraspinal muscle spasm and straight leg raise negative bilaterally Back image (male): 2 1. notable swelling and muscle spasms Extremity Common normals: normal to inspection, full ROM, no joint enlargement, no calf tenderness and no pedal edema Neuro Common normals: oriented x3, CN's II-XII intact bilaterally, moves all extremities, no focal motor deficits, no sensory deficits noted and deep tendon reflexes 2+ bilaterally Sensorium/orientation: alert Motor exam: strength 5/5 throughout and no movement abnormalities noted Psych Common normals: mental status grossly normal, thought process normal, cooperative, affect normal, speech normal and activity/motor behavior normal Speech: normal speech Thought process: normal thought process Results Additional Findings Additional findings: If on a controlled substance or opioids, I have checked an OARRS report on this patient and there are no aberrancies noted in the prescribing history.??If on a controlled substance or opioid a drug screen was completed and reviewed within the last year, and if there has not been a drug screen completed we ordered one today to monitor higher risk, state monitored pain medication use. As part of providing excellent, safe, comprehensive care, the following was completed at our patient's visit: 1. A medication reconciliation and review to ensure accurate knowledge of current/active medications, including asking our patients to inform us about any [id number]-zygfqza medications or herbal remedies/nutritional supplements/alternative remedies. 2. A review to specifically ensure our patients have had annual screening for screening for depression, screening for tobacco use, and screening for unhealthy alcohol use. For concerning screenings had a discussion with the patient, provided patient education, and recommended follow-up with primary care provider when appropriate. If patient noted with a risk of falling, they received education on strength, gait, and balance training to prevent future risk of falling. Assessment and Plan Assessment and Plan (1) Thoracic spondylosis: (2) Chronic prescription opiate use: Assessment and Plan: Medications help patient to complete ADLs, care for self, work I have refilled the patient's opioid prescriptions at the above noted dose and schedule.? I feel these medications are improving the patient's quality of life and allow them to tolerate activities of daily living as well as participate in recreational activity.? The patient does not report intolerable side effects. The patient is NOT opioid naive and non-pharmacologic and non-opioid treatment has failed to significantly relieve the patient's pain and improve functionality. The patient has a diagnosis that is related to a somatic or visceral pain etiology. ? ?? I reviewed with the patient the potential risks and side effects with the use of?opioid medications including but not limited to respiratory depression,? sedation, and even . I verified the patient has access to naloxone should?these effects occur. I advised the patient to avoid the use of any other? sedation substances including alcohol, THC, and benzodiazepines while?taking opioid medications due to the risk of compounding side effects and? detrimental outcomes. I reviewed the FUEL SYSTEM MAINTENANCE SUPERVISOR, pain treatment agreement, urine?drug screen, and opioid start talking forms. The patient was advised to let? their family know they had Naloxone in case they would need to administer?the medication.? ?? A drug screen was completed within the last year, and no aberrancies were noted regarding their use of controlled substances. The patient understands they are subject to the terms and conditions of the pain contract that they have signed. ? ?? I have checked an OARRS report on this patient today and there are no aberrancies noted in the prescribing history.? (3) Muscle spasm: Plan encouraged stretching to assist in myofascial pain/spasms continue percocet 5-325mg QD PRN pain continue tizanidine 8mg HS continue PRN ibuprofen f/u 3 months for medication management, sooner if needed
== END 2024-02-04 09:33 | disposition home or self-care (01) ==
PROVIDERS: PCP Family Medicine; Visit Provider Nurse Practitioner
DX: M47.814 Spondylosis without myelopathy or radiculopathy, thoracic region (principal); Z79.891 Long term (current) use of opiate analgesic; M62.838 Other muscle spasm
CPT/HCPCS: G0463

== ENCOUNTER 2024-05-12 09:20 | Outpatient (OUT) | payer OTHER, SELFPAY ==
--- OUTSIDE RECORDS SUMMARY | 2024-05-12 09:40 | XMS_ITS | CCD ---
Author Organization [facility] Care Team Providers Care Women'S Swim Coach Name Role Phone LAKSHMIPATHY ., NARENDRANATH Admitting Ryann vailable LAKSHMIPATHY ., NARENDRANATH Attending Ryann vailable SATHYA, DR GÓMEZ Primary Care Unavailable HALKER ., FILIBERTO Consulting Unavailable NEWTON ., DR MATHIEU Ivory Admitting Unavailable NEWTON ., DR MATHIEU Ivory Attending Unavailable SATHYA, DR GÓMEZ [facility] Care Unavailable OSEI ., NICKOLAS Consulting Unavailable SATHYA, DR GÓMEZ [facility] Care Unavailable OSEI ., NICKOLAS Admitting Unavailable OSEI ., NICKOLAS Attending Unavailable GA, DR THANG Escobedo Consulting Unavailable OSEI ., NICKOLAS Consulting Unavailable NEWTON ., DR MATHIEU Ivory Admitting Unavailable NEWTON ., DR MATHIEU Ivory Attending Unavailable SATHYA, DR GÓMEZ [facility] Care Unavailable OSEI ., NICKOLAS Consulting Unavailable NEWTON ., DR MATHIEU Ivory Admitting Unavailable NEWTON ., DR MATHIEU Ivory Attending Unavailable SATHYA, DR GÓMEZ [facility] Unavailable OSEI ., NICKOLAS Consulting Unavailable NEWTON ., DR MATHIEU Ivory Admitting Unavailable NEWTON ., DR MATHIEU Ivory Attending Unavailable SATHYA, DR GÓMEZ [facility] Unavailable OSEI ., NICKOLAS Consulting Unavailable RICO [...] Payer Category Payer Private Health Insurance [id number] 1965 Unknown [id number] 2.16.84 [id number] 1965 Unknown [id number] 2.16.84 [id number] 1965 Unknown [id number] 2.16.84 [id number] 1965 Unknown [id number] 2.16.84 [id number] 1965 Unknown [id number] 2.16.84 [id number] 1965 Unknown [id number] 2.16.84 [id number] 1965 Unknown [id number] 1959 Self-pay 1959 Unknown [id number] Consultation note 08-01-2022 Note Date & Type [...] indicated. Patient agrees with this plan. [facility] Consultation note 05-02-2022 Note Date & Type Note Facility 05-02-2022 Note CONSULTATION CONSULTATION DATE: 05/02/2022 HISTORY OF PRESENT ILLNESS: This is a 56-year-old gentleman returning to the clinic for a three month appointment for medication maintenance and refills. 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 Patient agrees with this plan. [facility] Clinical Note 01-31-2022 Note Date & Type [...] by: THANG KOROMA Date: 2022-01-31 18:[address] [facility] Consultation note 01-31-2022 Note Date & Type [...] three months' time unless otherwise indicated. [facility] Consultation note 11-08-2021 Note Date & Type [...] patient agrees with the plan of care. [facility] Signed and Approved by: NICKOLAS OSEI . 11/12/2021 15:06:[address] [facility] Summary Purpose Family History No Family History Records FoundNo Family History Records Found Advance Directives No Advanced Directives Records FoundNo Advanced Directives Records Found Additional Source Comments (unrecognized sect ion and content) No Status Records FoundNo Status Records Found INFORMATION SOURCE (unrecogn ized section and content) DATE CREATED AUTHOR 11/02/2022 [facility] DATE CREATED AUTHOR AUTHOR'S ORGANIZ ATION 05/10/2023 [facility] EPIC FOR RECORDS PERTAINING TO PATIENTS [...] BE BASED ON THE PRIMARY CLINICAL RECORDS. [facility] [employer] provides no warranty or guarantee of the accuracy or completeness of information in this document.
--- NOTE | 2024-05-26 14:06 | P.CN_ITS ---
Consult Note: HPI Data of Consult Patient: known to practice within the last 3 years Consult date: 05/12/24 Requesting Physician: Poly Kurtz NP Primary Care Provider: RICO MCDONNELL Consult Narrative Reason for consult: f/u Narrative: Jose Forde a pleasant 58 year old male presents for evaluation and management of chronic back pain post surgical repair. Patient has been doing well on current medication regimen, noticing improvement in pain and function, no side effects from medications. Pain today 4/10 pressure worse with activity, improved with rest. patient reports increase in muscle pain and stiffness due to recent strenuous activity. Patient has been able to continue to do housework, golf, ride in the car for long periods of time, and engage in social activities as his pain is well controlled. cc:: CC: Poly Kurtz NP Review of Systems ROS Status of ROS 10 or more systems reviewed and unremark able except as noted in history and below Musculoskeletal Reports: back pain Meds Home Medications and Allergies Home Medications ?Medication ?Instructions ?Recorded ?Confirmed ?Type atorvastatin 10 mg tablet (Lipitor) 10 mg PO DAILY 02/20/23 02/20/23 History hydrochlorothiazide 25 mg tablet 25 mg PO DAILY 02/20/23 02/20/23 History losartan 100 mg tablet 100 mg PO DAILY 02/20/23 02/20/23 History metoprolol tartrate 100 mg tablet 100 mg PO BID 02/20/23 02/20/23 History (Lopressor) spironolactone 25 mg tablet 25 mg PO DAILY 02/20/23 02/20/23 History (Aldactone) tizanidine 4 mg tablet 8 mg (2 x 4 mg) PO DAILY PRN 11/05/23 Rx muscle spasticity #180 tabs oxycodone-acetaminophen 5 mg-325 1 tab PO DAILY PRN pain #30 tabs 02/04/24 Rx mg tablet (Percocet) oxycodone-acetaminophen 5 mg-325 1 tab PO DAILY PRN pain #30 tabs 02/25/24 Rx mg tablet (Percocet) oxycodone-acetaminophen 5 mg-325 1 tab PO DAILY PRN pain #30 tabs 03/31/24 Rx mg tablet (Percocet) baclofen 10 mg tablet 10 mg PO TID 05/12/24 05/12/24 History oxycodone-acetaminophen 5 mg-325 1 tab PO DAILY PRN pain #30 tabs 05/12/24 Rx mg tablet (Percocet) tizanidine 4 mg tablet 4 mg PO BID PRN muscle spasticity 05/12/24 Rx #60 tabs Allergies Allergy/AdvReac Type Severity Reaction Status Date / Time No Known Drug Allergies Allergy Verified 02/20/23 12:36 Exam Constitutional Documenting provider has reviewed patient's vital signs: yes Common normals: no apparent distress, oriented x3, healthy appearing, alert and well nourished General appearance: cooperative Nutritional appearance: overweight HENMT Common normals: normocephalic, hearing grossly normal bilaterally and moist oral mucous membranes Head and scalp: normocephalic Eye Common normals: PERRL Pupil: PERRL Neck & C-Spine Common normals: full ROM General: normal visual inspection Chest Common normals: inspection of chest normal Respiratory Common normals: normal respiratory effort, no retractions and no use of accessory muscles Back & Pelvis Thoracic spine/upper back: ROM limited, pain with ROM, paraspinal muscle tenderness and other soft tissue findings (hardware palpable) Lumbar spine/lower back: normal to inspection, lumbar ROM normal, paraspinal muscle spasm and straight leg raise negative bilaterally Extremity Common normals: normal to inspection, full ROM, no joint enlargement, no calf tenderness and no pedal edema Neuro Common normals: oriented x3, CN's II-XII intact bilaterally, moves all extremities, no focal motor deficits, no sensory deficits noted and deep tendon reflexes 2+ bilaterally Sensorium/orientation: alert Motor exam: strength 5/5 throughout and no movement abnormalities noted Psych Common normals: mental status grossly normal, thought process normal, cooperative, affect normal, speech normal and activity/motor behavior normal Speech: normal speech Thought process: normal thought process Assessment and Plan Assessment and Plan (1) Thoracic spondylosis: (2) Chronic prescription opiate use: Assessment and Plan: Medications help patient to complete ADLs, care for self, work I have refilled the patient's opioid prescriptions at the above noted dose and schedule.? I feel these medications are improving the patient's quality of life and allow them to tolerate activities of daily living as well as participate in recreational activity.? The patient does not report intolerable side effects. The patient is NOT opioid naive and non-pharmacologic and non-opioid treatment has failed to significantly relieve the patient's pain and improve functionality. The patient has a diagnosis that is related to a somatic or visceral pain etiology. ? ?? I reviewed with the patient the potential risks and side effects with the use of?opioid medications including but not limited to respiratory depression,? sedation, and even . I verified the patient has access to naloxone should?these effects occur. I advised the patient to avoid the use of any other? sedation substances including alcohol, THC, and benzodiazepines while?taking opioid medications due to the risk of compounding side effects and? detrimental outcomes. I reviewed the FITTING ROOM SUPERVISOR, pain treatment agreement, urine?drug screen, and opioid start talking forms. The patient was advised to let? their family know they had Naloxone in case they would need to administer?the medication.? ?? A drug screen was completed within the last year, and no aberrancies were noted regarding their use of controlled substances. The patient understands they are subject to the terms and conditions of the pain contract that they have signed. ? ?? I have checked an [place]AR[place] report on this patient today and there are no aberrancies noted in the prescribing history.? (3) Muscle spasm: Plan encouraged stretching to assist in myofascial pain/spasms continue percocet 5-325mg QD PRN pain continue tizanidine 8mg HS continue PRN ibuprofen f/u 3 months for medication management, sooner if needed
== END 2024-05-12 09:21 | disposition home or self-care (01) ==
LOC: PM 09:21
PROVIDERS: PCP Family Medicine; Visit Provider Nurse Practitioner
DX: M47.814 Spondylosis without myelopathy or radiculopathy, thoracic region (principal); Z79.891 Long term (current) use of opiate analgesic; M62.838 Other muscle spasm
CPT/HCPCS: G0463

== ENCOUNTER 2024-08-12 10:15 | Outpatient (OUT) | payer OTHER, SELFPAY ==
--- OUTSIDE RECORDS SUMMARY | 2024-08-12 10:30 | XMS_ITS | CCD ---
Author Organization [facility] Care Team Providers Care Skip Operator Name Role Phone LAKSHMIPATHY ., NARENDRANATH Admitting Ryann vailable LAKSHMIPATHY ., NARITARANATH Attending Ryann vakarime MCDONNELL, DR GÓMEZ Primary Care Unavailable HALKER ., FILIBERTO العلي Unavailable NEWTON ., DR MATHIEU Ivory Admitting Unavailable NEWTON ., DR MATHIEU Ivory Attending Unavailable SATHYA, DR GÓMEZ Primary Care Unavailable OSEI ., NICKOLAS Consulting Unavailable SATHYA, DR GÓMEZ Primary Care Unavailable OSEI ., NICKOLAS Admitting Unavailable OSEI ., NICKOLAS Attending Unavailable GA, DR THANG Escobedo Consulting Unavailable OSEI ., NICKOLAS Consulting Unavailable NEWTON ., DR MATHIEU Ivory Admitting Unavailable NEWTON ., DR MATHIEU Ivory Attending Unavailable SATHYA, DR GÓMEZ Primary Care Unavailable OSEI ., NICKOLAS Consulting Unavailable NEWTON ., DR MATHIEU Ivory Admitting Unavailable NEWTON ., DR MATHIEU Ivory Attending Unavailable SATHYA, DR GÓMEZ Primary Care Unavailable OSEI ., NICKOLAS Consulting Unavailable NEWTON ., DR MATHIEU Ivory Admitting Unavailable NEWTON ., DR MATHIEU Ivory Attending Unavailable SATHYA, DR GÓMEZ Primary Care Unavailable OSEI ., NICKOLAS Consulting Unavailable EDUARDA MCDONNELL Attending Unavailable Eduarda Mcdonnell MD Primary Care Provider Medications Current Medications Medication Drug Class(es) Dates Sig (Normalized) Sig (Original) acetaminophen 325 mg / oxyCODONE hydrochloride 5 mg oral tablet (2 sources) Opioid Agonist Start: 3 take 1 tablet by mouth once daily oxyCODONE-acetaminophe n (Percocet) 5-325 MG tablet Take 1 tablet by mouth 1 (one) time each day. 05/07/2023 Active atorvastatin 10 mg oral tablet (2 sources) HMG-CoA Reductase Inhibitor Start: 3 take 1 tablet by mouth at bedtime atorvastatin (Lipitor) 10 MG tablet Indications: Hypercholesteremia (CMS/HCC) take 1 tablet by mouth at bedtime 90 tablet 3 06/04/2023 Active hydroCHLOROthiazide 25 mg oral tablet (2 sources) Thiazide Diuretic Start: 3 take 1 tablet by mouth once daily hydroCHLOROthiazide (HYDRODiuril) 25 MG tablet Indications: Benign essential HTN (CMS/HCC) take 1 tablet by mouth once daily 90 tablet 3 06/03/2023 Active losartan potassium 100 mg oral tablet (2 sources) Angiotensin 2 Receptor Ashu Start: 3 take 1 tablet by mouth once daily losartan (Cozaar) 100 MG tablet Indications: Benign essential HTN (CMS/HCC) take 1 tablet by mouth once daily 100 tablet 3 06/04/2023 Active metoprolol tartrate 100 mg oral tablet (2 sources) beta-Adrenergic Ashu Start: 3 take 1 tablet by mouth twice daily at mealtime metoprolol tartrate (Lopressor) 100 MG tablet Indications: Benign essential HTN (CMS/HCC) take 1 tablet by mouth twice a day with food 200 tablet 3 06/04/2023 Active spironolactone 50 mg oral tablet (2 sources) Aldosterone Antagonist Start: 3 take 1 tablet by mouth once daily spironolactone (Aldactone) 50 MG tablet Indications: Benign essential HTN (CMS/HCC) take 1 tablet by mouth once daily 100 tablet 3 06/04/2023 Active tiZANidine 4 mg oral tablet (2 sources) Central alpha-2 Adrenergic Agonist take 1 tablet by mouth in the morning tiZANidine (Zanaflex) 4 MG tablet Take 4 mg by mouth in the morning and 4 mg before bedtime. Active Problems Active Problems Problem Classification Problem Date Documented Date Episodic/Chronic Disorders of lipid metabolism (4 sources) Hypercholesterolemia; Translations: [Pure hypercholesterolemia, unspecified] Onset: 12-05-2022 05-11-2024 Chronic Essential hypertension (4 sources) Benign essential hypertension; Translations: [Essential (primary) hypertension] Onset: 12-05-2022 05-11-2024 Chronic Nonspecific chest pain (2 sources) Chest pain; Translations: [Chest pain, unspecified] 05-11-2024 Episodic Osteoarthritis (5 sources) Unilateral primary osteoarthritis, left knee; Translations: [UNI PRIM OSTEOARTHRITIS LT KNEE] Onset: 02-04-2022 Chronic Other nutritional; endocrine; and metabolic disorders (2 sources) Disorder of carbohydrate metabolism; Translations: [Other disorders of intestinal carbohydrate absorption] Onset: 12-05-2022 12-05-2022 Chronic Other nutritional; endocrine; and metabolic disorders (2 sources) Hypercalcemia; Translations: [Hypercalcemia] Onset: 12-05-2022 12-05-2022 Chronic Spondylosis; intervertebral disc disorders; other back problems (8 sources) Spondylosis without myelopathy or radiculopathy, thoracic [...] Translations: [LOW BACK PAIN, UNSPECIFIED] Onset: 05-02-2022 Vital Signs Date Time Vital Sign Value Performing Clinician Faci lity 05-11-2024 11:47-0500 Body height 175.9 cm Eduarda Mcdonnell MD Work Phone: [facility] 05-11-2024 11:47-0500 Body mass index (BMI) [Ratio] 35.92 kg/m2 Eduarda Mcdonnell MD Work Phone: [facility] 05-11-2024 11:47-0503 Body weight 111.13 kg Eduarda Mcdonnell MD Work Phone: [facility] 05-11-2024 11:47-0500 Diastolic blood pressure 88 mm[Hg] Eduarda Mcdonnell MD Work Phone: [facility] 05-11-2024 11:47-0500 Heart rate 50 /min Eduarda Mcdonnell MD Work Phone: [facility] 05-11-2024 11:47-0500 Respiratory rate 18 /min Eduarda Mcdonnell MD Work Phone: [facility] 05-11-2024 11:47-0500 SaO2% (BldA) [Mass fraction] 96 % Eduarda Mcdonnell MD Work Phone: [facility] 05-11-2024 11:47-0500 Systolic blood pressure 136 mm[Hg] Eduarda Mcdonnell MD Work Phone: [facility] Encounters Encounter Date Encounter Type Care Provider Facility Start: 05-11-2024 End: 05-11-2024 Patient encounter status Eduarda Mcdonnell MD Work Phone: [facility] Work Phone: Start: 05-11-2024 End: 05-11-2024 Periodic preventive med est patient 40-64yrs Eduarda Mcdonnell MD Work Phone: [facility] Comment on above: Routine general medi stanley examination at a health care facility (Primary Dx); Benign essential HTN (CMS/HCC); Hypercholesteremia (CMS/HCC); Chest pain, unspecified type Start: 05-11-2024 End: 05-11-2024 ambulatory EDUARDA MCDONNELL Not Available Start: 11-01-2022 End: 11-02-2022 ambulatory ALEJANDRO BELLAMIBLOSSOM . Facility:[facility] Start: 08-01-2022 End: 08-02-[address] MATHIEU NEWTON . Facility:[facility] Start: 05-02-2022 End: 05-03-[address] MATHIEU NEWTON . Facility:[facility] Start: 01-31-2022 End: 02-01-[address] EDUARDA MCDONNELL Facility:[facility] Start: 01-31-2022 End: 02-01-[address] MATHIEU NEWTON . Facility:[facility] Start: 11-08-2021 End: 11-09-[address] MATHIEU NEWTON . Facility: Plan of Treatment Date Care Activity Detail Author Start: 05-12-2025 End: 05-12-2025 Patient encounter procedure 05/12/2025 11:00 AM EST Office Visit [facility] [address] [place] [id number] Eduarda Mcdonnell MD [address] [place], [place] [id number] [facility] Start: 05-11-2024 End: 05-11-2025 ECG 12 lead ECG 12 lead ECG Routine Chest pain, unspecified type Expected: 05/11/2024 (Approximate), Expires: 05/11/2025 [facility] Comment on above: Expected: 05/11/2024 (Approximate), Expires: 05/11/2025 Start: 05-11-2024 End: 05-11-2025 Troponin I.cardiac [Mass/volume] in Serum or Plasma Troponin I Lab Routine Chest pain, unspecified type Expected: 05/11/2024 (Approximate), Expires: 05/11/2025 [facility] Work Phone: Comment on above: Expected: 05/11/2024 (Approximate), Expires: 05/11/2025 Start: 1965 Screening for malignant neoplasm of colon [facility] Immunizations Immunization Date Immunization Notes Care Provider Fa cili 04-09-2024 influenza, seasonal, injectable, preservative free Eduarda Mcdonnell MD Work Phone: [facility] 05-08-2023 influenza, injectabl e, quadrivalent, preservative free Eduarda Mcdonnell MD Work Phone: [facility] Work Phone: 05-07-2022 influenza, injectabl e, quadrivalent, preservative free Eduarda Mcdonnell MD Work Phone: [facility] 03-14-2022 Moderna SARS-CoV-2 50mcg/0.5mL Booster Eduarda Mcdonnell MD Work Phone: [facility] 05-04-2021 influenza, injectabl e, quadrivalent, preservative free Eduarda Mcdonnell MD Work Phone: [facility] 03-23-2019 influenza, injectabl e, quadrivalent, contains preservative Eduarda Mcdonnell MD Work Phone: [facility] 05-02-2014 influenza, seasonal, injectable, preservative free Eduarda Mcdonnell MD Work Phone: [facility] Payers Date Payer Category Payer Managed Care O (unspecified) [employer] [id number] 2023 Private Health Insurance [id number] 2022 Private Health Insurance [id number] 1965 Unknown [id number] 1965 Unknown [id number] 1965 Unknown [id number] 1965 Unknown [id number] 1965 Unknown [id number] 1965 Unknown [id number] 1965 Unknown [id number] 1959 Self-pay 1959 Unknown [id number] Social History Date Type Detail Facility Start: 02-28-2023 [facility] Start: 02-28-2023 Tobacco use and exposure Smoke less tobacco non-user [facility] Start: 05-11-2024 Alcoholic beverage intake Curr ent drinker of alcohol (finding) [facility] Start: 05-07-2023 End: 05-11-2024 Alcoholic beverage intake [facility] Start: 05-07-2023 End: 05-11-2024 Humiliation, Afraid, Rape, and Kick questionnaire [HARK] [facility] Within the last year , have you been afraid of your partner or ex-partner? No [facility] Do you belong to any clubs or organizations such as scientology groups, unions, fraternal or athletic groups, or school groups? Yes [facility] Are you now , , , , never or living with a partner? [facility] How often to you hav e a drink containing alcohol? 2-4 times a month [facility] How many standard dr inks containing alcohol do you have on a typical day? 1 or 2 [facility] How often do you hav e 6 or more drinks on 1 occasion? Less than monthly [facility] How hard is it for y ou to pay for the very basics like food, housing, medical care, and heating Not hard at all [facility] Do you feel stress - tense, restless, nervous, or anxious, or unable to sleep at night because your mind is troubled all the time - these days [OSQ] Only a little [facility] (I/We) worried wheth er (my/our) food would run out before (I/we) got money to buy more. Never true [facility] Start: 1965 Sex assigned at Male [facility] Start: 02-27-2023 Gender identity Identifies as male gender (finding) [facility] Start: 02-27-2023 Sexual orientation Heterosexual (fin ander) [facility] History of Present illness Narrative 05-11-2024 Eduarda Mcdonnell MD - 05/11/2024 11:40 AM EST Note Date & Type Note Facility 05-11-2024 History of Presen t illness Narrative Images from the original note were not included. Jose Forde is a 58 y.o. male presents with chief complaint of Annual Exam HPI: HPI History of Present Illness The patient is a 58-year-old male who presents for a routine visit. He reports no significant changes in his health since the previous year. He acknowledges the need to monitor his weight, which he manages through regular walking exercises. His diet primarily consists of processed foods, frozen meals, and canned soups, which he admits are high in salt. He occasionally experiences back pain, which he attributes to certain activities. He also mentions a history of knee issues from his high school football days, which occasionally flare up but usually subside within a few days. He recalls a recent incident where his knee locked up while bowling with his grandson. He has previously received cortisone injections for his knee but does not believe he currently requires them. He reports no chest pain or breathing difficulties during physical activity. However, he recalls an episode of indigestion and unusual tightness after climbing several flights of stairs at a theater. 10 days ago He has never undergone an EKG. SUBJECTIVE: MEDICATIONS: Current Outpatient Medications Medication Instructions atorvastatin (LIPITOR) 10 mg, Oral, Nightly hydroCHLOROthiazide (HYDRODIURIL) 25 mg, Oral, Daily losartan (COZAAR) 100 mg, Oral, Daily metoprolol tartrate (LOPRESSOR) 100 mg, Oral, Take with food. oxyCODONE-acetaminophen (Percocet) 5-325 MG tablet 1 tablet, Daily spironolactone (ALDACTONE) 50 mg, Oral, Daily tiZANidine (ZANAFLEX) 4 mg, 2 times daily ALLERGIES: No Known Allergies SURGICAL HISTORY: Past Surgical History: Procedure Laterality Date SPINE SURGERY 2008 VASECTOMY 1992 FAMILY HISTORY: Family History Problem Relation Name Age of Onset COPD Mother Kayla Cancer Father Cameron Benavides SOCIAL HISTORY: Social History Tobacco Use Smoking status: Never Smokeless tobacco: Never Substance Use Topics Alcohol use: Yes Alcohol/week: 1.0 standard drink of alcohol Types: 1 Cans of beer per week Drug use: Never Depression: Not at risk (05/11/2024) PHQ-2 PHQ-2 Score: 0 REVIEW OF SYMPTOMS: Review of Systems Respiratory: Negative. Cardiovascular: Negative. OBJECTIVE: Visit Vitals BP 136/88 (BP Location: Left arm, Patient Position: Sitting, BP Cuff Size: Large adult) Pulse 50 Resp 18 Ht 5' 9.25 Wt 245 lb SpO2 96% BMI 35.92 kg/m Smoking Status Never BSA 2.33 m Physical Exam Constitutional: Appearance: He is normal weight. HENT: Head: Normocephalic and atraumatic. Nose: Nose normal. No congestion. Mouth/Throat: Mouth: Mucous membranes are moist. Eyes: Extraocular Movements: Extraocular movements intact. Pupils: Pupils are equal, round, and reactive to light. Cardiovascular: Rate and Rhythm: Normal rate and regular rhythm. Pulmonary: Effort: Pulmonary effort is normal. No respiratory distress. Breath sounds: Normal breath sounds. No wheezing. Musculoskeletal: General: No swelling or deformity. Cervical back: Normal range of motion and neck supple. Right lower leg: No edema. Left lower leg: No edema. Skin: General: Skin is warm and dry. Findings: No rash. Neurological: General: No focal deficit present. Mental Status: He is alert and oriented to person, place, and time. Cranial Nerves: No cranial nerve deficit. Gait: Gait normal. Psychiatric: Mood and Affect: Mood normal. Behavior: Behavior normal. ASSESSMENT AND PLAN: Assessment/Plan Problem List Items Addressed This Visit Benign essential HTN (CMS/HCC) stable Hypercholesteremia (CMS/HCC) Contwith statin Other Visit Diagnoses Routine general medical examination at a health care facility - Primary Chest pain, unspecified type Relevant Orders Troponin I ECG 12 lead Assessment & Plan 1. Routine visit. An EKG will be performed today, along with blood work. Reviewed importance of healthy diet and regular exercise 2. Knee pain. The patient reports occasional flare-ups of knee pain, likely due to a past high school football injury. He does not feel the need for cortisone injections at this time. Physical therapy was suggested as an option. 3. Back pain. The patient experiences occasional back pain, especially after certain activities. He is advised to continue monitoring and avoid activities that exacerbate the pain. 4. Cardiac evaluation. The patient experienced some tightness in the chest after climbing several flights of stairs, which he attributes to indigestion. Cardiac enzymes will be checked, and an EKG will be performed today. A stress test on the heart was recommended patient declined understands risk of sudden with cardiac ischemia documented in this encounter [facility] Consultation note 08-01-2022 Note Date & Type [...] Patient agrees with this plan. [facility] Consultation note 05-02-2022 Note Date & Type Note Facility 05-02-2022 Note CONSULTATION CONSULTATION DATE: 05/02/2022 HISTORY OF PRESENT ILLNESS: This is a 56-year-old gentleman returning to the clinic for a three month appointment for medication maintenance and refills. Patient has been a [facility] and has [...] Patient agrees with this plan. [facility] Clinical Note 01-31-2022 Note Date & [...] THANG KOROMA Date: 2022-01-31 18:30 [facility] Consultation note 01-31-2022 Note Date & [...] months' time unless otherwise indicated. [facility] Consultation note 11-08-2021 Note Date & [...] patient agrees with the plan of care. [facility] Signed and Approved by: NICKOLAS OSEI . 11/12/2021 15:06:00 [facility] Evaluation note Note Date & Type Note Facility Evaluation note Diagnosis Routine general medical examination at a health care facility- Primary Benign essential HTN (CMS/HCC) Hypercholesteremia (CMS/HCC) Pure hypercholesterolemia Chest pain, unspecified type documented in this encounter [facility] Summary Purpose Family History No Family History Records FoundNo Family History Records Found Advance Directives No Advanced Directives Records FoundNo Advanced Directives Records Found Additional Source Comments (unrecognized sect ion and content) No Status Records FoundNo Status Records Found INFORMATION SOURCE (unrecogn ized section and content) DATE CREATED AUTHOR 11/02/2022 [facility] DATE CREATED AUTHOR AUTHOR'S ORGANIZ ATION 05/13/2024 [facility] Reason for Visit (unrecogniz ed section and content) Reason Comments Annual Exam Care Teams (unrecognized sec tion and content) Skip Operator Relationship Specialty Start Date End Date Eduarda Mcdonnell MD [address] [place] [address] PCP - General Family Medicine 10/29/22 FOR RECORDS PERTAINING TO PATIENTS WHO ARE [...] BE BASED ON THE PRIMARY CLINICAL RECORDS. [employer] provides no warranty or guarantee of the accuracy or completeness of information in this document.
--- NOTE | 2024-08-12 10:43 | P.CN_ITS ---
Consult Note: HPI Data of Consult Patient: known to practice within the last 3 years Requesting Physician: Poly Kurtz NP Primary Care Provider: RICO MCDONNELL Consult Narrative Reason for consult: f/u Narrative: Jose Forde a pleasant 59 year old male presents for evaluation and management of chronic thoracic back pain post surgical repair. Patient has been doing well on current medication regimen, noticing improvement in pain and function, no side effects from medications. Pain today 3/10 pressure worse with activity, improved with rest. Patient has been able to continue to do housework, golf, ride in the car for long periods of time, and engage in social activities as his pain is well controlled. cc:: CC: Poly Kurtz NP Review of Systems ROS Status of ROS 10 or more systems reviewed and unremark able except as noted in history and below Musculoskeletal Reports: back pain Meds Home Medications and Allergies Home Medications ?Medication ?Instructions ?Recorded ?Confirmed ?Type atorvastatin 10 mg tablet (Lipitor) 10 mg PO DAILY 02/20/23 02/20/23 History hydrochlorothiazide 25 mg tablet 25 mg PO DAILY 02/20/23 02/20/23 History losartan 100 mg tablet 100 mg PO DAILY 02/20/23 02/20/23 History metoprolol tartrate 100 mg tablet 100 mg PO BID 02/20/23 02/20/23 History (Lopressor) spironolactone 25 mg tablet 25 mg PO DAILY 02/20/23 02/20/23 History (Aldactone) tizanidine 4 mg tablet 8 mg (2 x 4 mg) PO DAILY PRN 11/05/23 Rx muscle spasticity #180 tabs oxycodone-acetaminophen 5 mg-325 1 tab PO DAILY PRN pain #30 tabs 02/04/24 Rx mg tablet (Percocet) oxycodone-acetaminophen 5 mg-325 1 tab PO DAILY PRN pain #30 tabs 02/25/24 Rx mg tablet (Percocet) oxycodone-acetaminophen 5 mg-325 1 tab PO DAILY PRN pain #30 tabs 03/31/24 Rx mg tablet (Percocet) baclofen 10 mg tablet 10 mg PO TID 05/12/24 05/12/24 History oxycodone-acetaminophen 5 mg-325 1 tab PO DAILY PRN pain #30 tabs 05/12/24 Rx mg tablet (Percocet) tizanidine 4 mg tablet 4 mg PO BID PRN muscle spasticity 05/12/24 Rx #60 tabs oxycodone-acetaminophen 5 mg-325 1 tab PO DAILY PRN pain #30 tabs 05/31/24 Rx mg tablet (Percocet) oxycodone-acetaminophen 5 mg-325 1 tab PO DAILY PRN pain #30 tabs 07/01/24 Rx mg tablet (Percocet) Allergies Allergy/AdvReac Type Severity Reaction Status Date / Time No Known Drug Allergies Allergy Verified 02/20/23 12:36 Exam Constitutional Documenting provider has reviewed patient's vital signs: yes Common normals: no apparent distress, oriented x3, healthy appearing, alert and well nourished General appearance: cooperative Nutritional appearance: overweight HENMT Common normals: normocephalic, hearing grossly normal bilaterally and moist oral mucous membranes Head and scalp: normocephalic Eye Common normals: PERRL Pupil: PERRL Neck & C-Spine Common normals: full ROM General: normal visual inspection Chest Common normals: inspection of chest normal Respiratory Common normals: normal respiratory effort, no retractions and no use of accessory muscles Back & Pelvis Thoracic spine/upper back: ROM limited, pain with ROM, paraspinal muscle tenderness and other soft tissue findings (hardware palpable) Lumbar spine/lower back: normal to inspection, lumbar ROM normal, paraspinal muscle spasm and straight leg raise negative bilaterally Extremity Common normals: normal to inspection, full ROM, no joint enlargement, no calf tenderness and no pedal edema Neuro Common normals: oriented x3, CN's II-XII intact bilaterally, moves all extremities, no focal motor deficits, no sensory deficits noted and deep tendon reflexes 2+ bilaterally Sensorium/orientation: alert Motor exam: strength 5/5 throughout and no movement abnormalities noted Psych Common normals: mental status grossly normal, thought process normal, cooperative, affect normal, speech normal and activity/motor behavior normal Speech: normal speech Thought process: normal thought process Assessment and Plan Assessment and Plan (1) Thoracic spondylosis: (2) Chronic prescription opiate use: Assessment and Plan: Medications help patient to complete ADLs, care for self, work I have refilled the patient's opioid prescriptions at the above noted dose and schedule.? I feel these medications are improving the patient's quality of life and allow them to tolerate activities of daily living as well as participate in recreational activity.? The patient does not report intolerable side effects. The patient is NOT opioid naive and non-pharmacologic and non-opioid treatment has failed to significantly relieve the patient's pain and improve functionality. The patient has a diagnosis that is related to a somatic or visceral pain etiology. ? ?? I reviewed with the patient the potential risks and side effects with the use of?opioid medications including but not limited to respiratory depression,? sedation, and even . I verified the patient has access to naloxone should?these effects occur. I advised the patient to avoid the use of any other? sedation substances including alcohol, THC, and benzodiazepines while?taking opioid medications due to the risk of compounding side effects and? detrimental outcomes. I reviewed the [employer]ER CHIEF, pain treatment agreement, urine?drug screen, and opioid start talking forms. The patient was advised to let? their family know they had Naloxone in case they would need to administer?the medication.? ?? A drug screen was completed within the last year, and no aberrancies were noted regarding their use of controlled substances. The patient understands they are subject to the terms and conditions of the pain contract that they have signed. ? ?? I have checked an [facility] report on this patient today and there are no aberrancies noted in the prescribing history.? (3) Muscle spasm: Plan update yearly UDS today continue stretching to assist in myofascial pain/spasms continue percocet 5-325mg QD PRN moderate to severe pain continue tizanidine 8mg HS continue PRN ibuprofen f/u 3 months for medication management, sooner if needed
== END 2024-08-12 10:16 | disposition home or self-care (01) ==
PROVIDERS: PCP Family Medicine; Visit Provider Nurse Practitioner
DX: M47.814 Spondylosis without myelopathy or radiculopathy, thoracic region (principal); Z79.891 Long term (current) use of opiate analgesic; M62.838 Other muscle spasm
CPT/HCPCS: G0463

== ENCOUNTER 2024-11-04 12:37 | Outpatient (OUT) | payer OTHER, SELFPAY ==
--- OUTSIDE RECORDS SUMMARY | 2024-11-04 12:43 | XMS_ITS | CCD ---
Author Organization [facility] Care Team Providers Care Plugger Name Role Phone LAKSHMIPATHY ., NARENDRANATH Admitting [...] NICKOLAS Consulting Unavailable NEWTON ., DR MATHIEU Ivroy Admitting Unavailable NEWTON ., DR MATHIEU Ivory Attending Unavailable SATHYA, DR GÓMEZ Primary Care Unavailable OSEI ., NICKOLAS Consulting Unavailable NEWTON ., DR MATHIEU Ivory Admitting Unavailable NEWTON ., DR MATHIEU Ivory Attending Unavailable SATHYA, DR GÓMEZ Primary Care Unavailable OSEI ., NICKOLAS Consulting Unavailable Eduarda Beth MD Primary Care Provider [phone] EDUARDA BETH Attending Unavailable EDUARDA BETH Attending Unavailable Eduarda Beth MD Primary Care Provider [phone] EDUARDA MAGANA Primary Care Unavailable CIELO DAVID Admitting Unavailable CIELO DAVID Attending Unavailable APRYL ZAPATA Attending Unavailable ANA LÓPEZ Referring Unavailable EDUARDA BETH Primary Care Unavailable APRYL ZAPATA Referring Unavailable EDUARAD BETH Primary Care Unavailable ANA LÓPEZ Attending Unavailable ANA LÓPEZ Referring Unavailable EUDARDA BETH Primary Care Unavailable ANA LÓPEZ Referring Unavailable SATHYA, EDUARDA F Primary Care Unavailable Medications Current Medications Medication Drug Class(es) Dates Sig (Normalized) Sig (Original) acetaminophen 325 mg / oxyCODONE hydrochloride 5 mg oral tablet (9 sources) Opioid Agonist Start: 05-07-2023 take 1 tablet by mouth once daily oxyCODONE-acetami nophen (Percocet) 5-325 MG tablet Take 1 tablet by mouth 1 (one) time each day. 05/07/2023 Active take 1 tablet by marita th every six hours as needed for pain oxyCODONE-acetaminophen (PERCOCET) 5-325 mg per tablet Take 1 tablet by mouth every 6 (six) hours as needed for pain. Active ascorbic acid 500 mg oral tablet (4 sources) Vitamin C take 1 tablet by mouth in the morning ascorbic acid (VITAMIN C) 500 mg tablet Take 1 tablet (500 mg total) by mouth in the morning. Active aspirin 81 mg delayed release oral tablet (6 sources) Platelet Aggregation Inhibitor, Nonsteroidal Anti-inflammatory Drug Start: 08-26-19 take 1 tablet by mouth in the morning aspirin 81 mg Take 1 tablet (81 mg total) by mouth in the morning. 30 tablet 08/25/2024 Active atorvastatin 40 mg oral tablet (12 sources) HMG-CoA Reductase Inhibitor Start: 08-25-19 End: 09-29-19 25 take 1 tablet by mouth once daily atorvastatin (LIPITOR) 40 mg tablet Take 1 tablet (40 mg total) by mouth nightly. 30 tablet 4 09/28/2024 Active Start: 06-09-2024 End: 08-30-2024 take 1 tablet by mouth at bedtime atorvastatin (Lipitor) 10 MG tablet Indications: Hypercholesteremia (CMS/HCC) TAKE 1 TABLET BY MOUTH AT BEDTIME 90 tablet 3 06/09/2024 08/30/2024 Discontinued (Reorder) Start: 06-04-2023 take 1 tablet by marita th at bedtime atorvastatin (Lipitor) 10 MG tablet Indications: Hypercholesteremia (CMS/HCC) take 1 tablet by mouth at bedtime 90 tablet 3 06/04/2023 Active hydroCHLOROthiazide 50 mg oral tablet (11 sources) Thiazide Diuretic Start: 08-30-2024 End: 08-30-2025 take 1 tablet by mouth once daily hydroCHLOROthiazide (HYDRODiuril) 50 MG tablet Indications: Benign essential HTN (CMS/HCC) Take 1 tablet (50 mg) by mouth Daily 90 tablet 3 08/30/2024 08/30/2025 Active Start: 06-03-2023 End: 08-30-2024 take 1 tablet by mouth once daily hydroCHLOROthiazide (HYDRODiuril) 25 MG tablet Indications: Benign essential HTN (CMS/HCC) TAKE 1 TABLET BY MOUTH ONCE DAILY 90 tablet 3 05/24/2024 08/30/2024 Discontinued (Dose adjustment) losartan potassium 100 mg oral tablet (9 sources) Angiotensin 2 Receptor Sahu Start: 06-04-2023 take 1 tablet by mouth once daily losartan (Cozaar) 100 MG tablet Indications: Benign essential HTN (CMS/HCC) take 1 tablet by mouth once daily 100 tablet 3 06/04/2023 Active [facility] ([facility]) 50 mg tablet Take 1 tablet (50 mg total) by mouth in the morning. Active metoprolol tartrate 100 mg oral tablet (9 sources) beta-Adrenergic Ashu Start: 06-07-2024 take 1 tablet by mouth twice daily at mealtime metoprolol tartrate (Lopressor) 100 MG tablet Indications: Benign essential HTN (CMS/HCC) TAKE 1 TABLET BY MOUTH TWICE A DAY WITH FOOD 200 tablet 3 06/07/2024 Active Start: 06-04-2023 take 1 tablet by marita twice daily at mealtime metoprolol tartrate (Lopressor) 100 MG tablet Indications: Benign essential HTN (CMS/HCC) take 1 tablet by mouth twice a day with food 200 tablet 3 06/04/2023 Active take 2 tablets by mo [facility] in the morning, then take 2 tablets by mouth at bedtime metoprolol tartrate (LOPRESSOR) 50 mg tablet Take 2 tablets (100 mg total) by mouth in the morning and 2 tablets (100 mg total) before bedtime. Active multivit-min/folic/vit K/lycop (ONE-A-DAY MEN'S MULTIVITAMIN ORAL) (2 sources) multivit-min/fol ic/vit K/lycop (ONE-A-DAY MEN'S MULTIVITAMIN ORAL) Take by mouth daily. Active spironolactone 50 mg oral tablet (11 sources) Aldosterone Antagonist Start : 06-04 End: 08-30 take 1 tablet by mouth once daily spironolactone (Aldactone) 50 MG tablet Indications: Benign essential HTN (CMS/HCC) Take 1 tablet (50 mg) by mouth Daily 100 tablet 3 08/30/2024 Active take 1 tablet by mouth in the mo rning spironolactone (ALDACTONE) 25 mg tablet Take 1 tablet (25 mg total) by mouth in the morning. Active tiZANidine 4 mg oral tablet (9 sources) Central alpha-2 Adrenergic Agonist take 1 tablet by mouth in the morning, then take 1 tablet by mouth at bedtime tiZANidine (ZANAFLEX) 4 mg tablet Take 1 tablet (4 mg total) by mouth in the morning and 1 tablet (4 mg total) before bedtime. Active turmeric root extract 500 mg capsule (4 sources) take 1 capsule by mouth in the morning turmeric root extract 500 mg capsule Take 1 capsule by mouth in the morning and 1 capsule before bedtime. Active Problems Active Problems Problem Classification Problem Date Documented Date Episodic/Chronic Acute cerebrovascular disease (10 sources) Cerebrovascular accident; Translations: [Cerebral infarction, unspecified] Onset: 08-23-2024 08-30-2024 Chronic Acute cerebrovascular disease (1 source) Acute cerebrovascular disease Onset: 08-23-2024 Congestive heart failure; nonhypertensive (1 source) Unspecified diastolic (congestive) heart failure; Translations: [Unspecified diastolic (congestive) heart failure] Onset: 08-23-2024 Chronic Disorders of lipid metabolism (15 sources) Hypercholesterolemia; Translations: [Pure hypercholesterolemia, unspecified] Onset: 12-05-2022 05-11-2024 Chronic Essential hypertension (15 sources) Benign essential hypertension; Translations: [Essential (primary) hypertension] Onset: 12-05-2022 05-11-2024 Chronic Malaise and fatigue (1 source) Weakness; Translations: [Weakness] Onset: 08-23-2024 Episodic Nonspecific chest pain (2 sources) Chest pain; Translations: [Chest pain, unspecified] 05-11-2024 Episodic Osteoarthritis (7 sources) Unilateral primary osteoarthritis, left knee; Translations: [Unilateral post-traumatic osteoarthritis, left knee] Onset: 02-04-2022 Chronic Other nervous system disorders (2 sources) Expressive dysphasia; Translations: [Aphasia] 08-30-2024 Chronic Other nutritional; endocrine; and metabolic disorders (5 sources) Disorder of carbohydrate metabolism; Translations: [Other disorders of intestinal carbohydrate absorption] Onset: 12-05-2022 12-05-2022 Chronic Other nutritional; endocrine; and metabolic disorders (5 sources) Hypercalcemia; Translations: [Hypercalcemia] Onset: 12-05-2022 12-05-2022 Chronic Spondylosis; intervertebral disc disorders; other back problems (11 sources) Spondylosis without myelopathy or radiculopathy, thoracic region; Translations: [Other intervertebral disc degeneration, thoracic region] Onset: 11-08-2021 Chronic Spondylosis; intervertebral disc disorders; other back problems (1 source) Pain in thoracic spine; Translations: [PAIN IN THORACIC SPINE] Onset: 08-05-2022 Episodic Unclassified (4 sources) LOW BACK PAIN, UNSPECIFIED; Translations: [LOW BACK PAIN, UNSPECIFIED] Onset: 05-06-2022 Unclassified (1 source) New Patient Onset: 09-28-2024 Unclassified (1 source) TROUBLE SPEAKING Onset: 08-23-2024 Past or Other Problems Problem Classification Problem Date Documented Da te Episodic/Chronic Mood disorders (4 sources) Mood disorders Onset: 08-23-2024 08-23-2024 Other non-traumatic joint disorders (1 source) Effusion, left knee; Translations: [EFFUSION LEFT KNEE] Onset: 02-01-2022 Episodic Other non-traumatic joint disorders (4 sources) Pain in left knee; Translations: [PAIN IN LEFT KNEE] Onset: 01-31-2022 Episodic Unclassified (1 source) LOW BACK PAIN, UNSPECIFIED; Translations: [LOW BACK PAIN, UNSPECIFIED] Onset: 05-02-2022 Results Test Name Value Interpretation Reference Range Facil christelle DIRECT LDLon 09-30-2024 Cholesterol in LDL [Mass/Vol] 63 mg/dL Normal <130 [facility] Comment on above: Result Comment: LDL <100 mg/dL - Desirable LDL 130-159 mg/dL - Borderline High Risk LDL >160 mg/dL - High Risk Performed By: #### 2 089-1 ####[facility] ([id number])[address] [place] [address], [address], [place] [address] CBC AND AUTO DIFFon 08-25-19 25 ABSOLUTE BASOPHIL 0.0 X10E9/L Normal 0.0-0.2 [facility] Comment on above: Performed By: #### C RITO, CMP, 41825-6 ####[facility] ([id number])[address] [place] [address] 97424#### 28701-5 ####[facility] ([id number])[address], [address], [place] [address] ABSOLUTE NEUTROPHIL 5.7 X10E9/L Normal 1.5-6.6 [facility] Comment on above: Performed By: #### Nya VERAS CMP, 95730-2 ####[facility] ([id number])[address] [place] [address] 26502#### 19730-0 ####[facility] ([id number])[address] [facility] [address] [place] [address] Basophils/100 WBC (Bld) 0.5 % Normal [facility] Comment on above: Performed By: #### Nya VERAS, CMP, 67577-1 ####[facility] ([id number])[address] [place] [address] 11849#### 46619-7 ####[facility] ([id number])[address] [address] [place] [address] Eosinophils (Bld) [#/Vol] 0.4 10*3/uL Normal 0.0-0.4 [facility] Comment on above: Performed By: #### Nya BCA, CMP, 29488-0 ####[facility] ([id number])[address] [place] [address] 36693#### 46715-9 ####[facility] ([id number])[address] [address], [place] [address] Eosinophils/100 WBC (Bld) 3.8 % Normal [facility] Comment on above: Performed By: #### Nya VERAS CMP, 21888-4 ####[facility] ([id number])[address] [place] [address] 03931#### 93582-7 ####[facility] ([id number])[address], [address], [place] [address] Erythrocyte distribution width (RBC) [Ratio] 13.6 % Normal 11.5-15.0 [facility] Comment on above: Performed By: #### Nya VERAS CMP, ####[facility] ([id number])[address] [place] [address] 83832#### 17194-2 ####[facility] ([id number])[address], [address] [place] [address] Hematocrit (Bld) [Volume fraction] 41.7 % Normal 39-49 [facility] Comment on above: Performed By: #### Nya VERAS CMP, ####[facility] ([id number])[address] [place] [address] 24630#### 13279-9 ####[facility] ([id number])[address], [address], [place] [address] Hemoglobin (Bld) [Mass/Vol] 14.5 g/dL Normal 13.0-17.0 [facility] Comment on above: Performed By: #### Nya VERAS CMP, ####[facility] ([id number])[address] [place] [address] 64634#### 17277-7 ####[facility] ([id number])[address], [address], [place] [address] Lymphocytes (Bld) [#/Vol] 2.7 10*3/uL Normal 1.0-3.5 [facility] Comment on above: Performed By: #### C BCA, CMP, 95598-4 ####[facility] ([id number])[address] [place] [address] 41907#### 90048-7 ####[facility] ([id number])[address], [address], [place] [address] Lymphocytes/100 WBC (Bld) 28.1 % Normal [facility] Comment on above: Performed By: #### C BCA, CMP, ####[facility] ([id number])[address] [place] [address] 58834#### 69962-0 ####[facility] ([id number])[address], [address], [place] [address] MCH (RBC) [Entitic mass] 29.7 pg Normal 27-34 [facility] Comment on above: Performed By: #### C BCA, CMP, ####[facility] ([id number])[address] [place] [address] 87603#### 05171-4 ####[facility] ([id number])[address], [address], [place] [address] MCHC (RBC) [Mass/Vol] 34.7 g/dL Normal 32-36 [facility] Comment on above: Performed By: #### C BCA, CMP, ####[facility] ([id number])[address] [place] [address] 18191#### 44810-1 ####[facility] ([id number])[address], [address] [place] [address] MCV (RBC) [Entitic vol] 86 fL Normal 80-100 [facility] Comment on above: Performed By: #### C BCA, CMP, 17677-2 ####[facility] ([id number])[address] [place] [address] 12109#### 22283-3 ####[facility] ([id number])[address], [address] [place] [address] Monocytes (Bld) [#/Vol] 0.8 10*3/uL Normal 0-0.9 [facility] Comment on above: Performed By: #### C BCA, CMP, ####[facility] ([id number])[address] [place] [address] 33981#### 80975-9 ####[facility] ([id number])[address], [address], [place] [address] Monocytes/100 WBC (Bld) 8.5 % Normal [facility] Comment on above: Performed By: #### Nya BCA, CMP, 81373-4 ####[facility] ([id number])[address] [place] [address] 55054#### 39599-1 ####[facility] ([id number])[address], [address], [place] [address] Neutrophils/100 WBC (Bld) 59.1 % Normal [facility] Comment on above: Performed By: #### Nya BCA, CMP, ####[facility] ([id number])[address] [place] [address] 93329#### 72460-4 ####[facility] ([id number])[address], [address], [place] [address] Platelet mean volume (Bld) [Entitic vol] 8.5 fL Normal 7-12 [facility] Comment on above: Performed By: #### C BCA, CMP, ####[facility] ([id number])[address] [place] [address] 79172#### 94169-8 ####[facility] ([id number])[address] [facility], [address] [place] [address] 23393 Platelets (Bld) [#/Vol] 211 10*3/uL Normal 150-450 [facility] Comment on above: Performed By: #### C BCA, CMP, 00715-6 ####[facility] ([id number])[address] [place] [address] 61287#### 96586-5 ####[facility] ([id number])[address] [place] [address], [address] [place] [address] 90080 RBC COUNT 4.86 X10E12/L Normal 4.10-5.70 [facility] Comment on above: Performed By: #### C BCA, CMP, 35227-3 ####[facility] ([id number])[address] [place] [address] 34404#### 11919-5 ####[facility] ([id number])[address] [place] [address], [address] [place] [address] WBC (Bld) [#/Vol] 9.7 10*3/uL Normal 4.0-11.0 [facility] Comment on above: Performed By: #### C BCA, CMP, 83298-6 ####[facility] ([id number])[address] [place] [address] 93100#### 77201-6 ####[facility] ([id number])[address] [place] [address], [address] [place] [address] COMPREHENSIVE METABOLIC PANE Alexey 08-24-2024 Albumin [Mass/Vol] 4.3 g/dL Normal 3.2-5.3 [facility] Comment on above: Performed By: #### C BCA, CMP, 82901-3 ####[facility] ([id number])[address] [place] [address] 67309#### 21174-6 ####[facility] ([id number])[address], [address] [place] [address] ALP [Catalytic activity/Vol] 76 U/L Normal 39-130 [facility] Comment on above: Performed By: #### Nya BCA, CMP, 94243-0 ####[facility] ([id number])[address] [place] [address] 47862#### 99127-2 ####[facility] ([id number])[address] [facility], [address], [place] [address] ALT [Catalytic activity/Vol] 47 U/L High 0-40 [facility] Comment on above: Performed By: #### Nya BCA, CMP, 01050-5 ####[facility] ([id number])[address] [place] [address] 95203#### 95780-6 ####[facility] ([id number])[address] [facility], [address] [place] [address]39 Anion gap [Moles/Vol] 6 mmol/L Normal 5-15 [facility] Comment on above: Performed By: #### C BCA, CMP, 26267-4 ####[facility] ([id number])[address] [place] [address] 80109#### 85644-1 ####[facility] ([id number])[address], [address] [place] [address] AST [Catalytic activity/Vol] 26 U/L Normal 0-41 [facility] Comment on above: Performed By: #### C BCA, CMP, ####[facility] ([id number])[address] [place] [address] 14692#### 40788-4 ####[facility] ([id number])[address], [address], [place] [address] Bilirubin [Mass/Vol] 0.9 mg/dL Normal 0.3-1.2 [facility] Comment on above: Performed By: #### C BCA, CMP, 53638-8 ####[facility] ([id number])[address] [place] [address] 59191#### 07779-3 ####[facility] ([id number])[address] [address] Calcium [Mass/Vol] 9.5 mg/dL Normal 8.5-10.5 [facility] Comment on above: Performed By: #### C BCA, CMP, 38916-8 ####[facility] ([id number])[address] [place] [address] 78938#### 78305-3 ####[facility] ([id number])[address], [address] [place] [address] Chloride [Moles/Vol] 104 mmol/L Normal 98-109 [facility] Comment on above: Performed By: #### C BCA, CMP, 59570-3 ####[facility] ([id number])[address] [place] [address] 52185#### 74007-9 ####[facility] ([id number])[address], [address], [place] [address] CO2 [Moles/Vol] 28 mmol/L Normal 22-32 [facility] Comment on above: Performed By: #### C BCA, CMP, 64710-6 ####[facility] ([id number])[address] [place] [address] 64002#### 83870-7 ####[facility] ([id number])[address], [address], [place] [address] Creatinine [Mass/Vol] 1.17 mg/dL Normal 0.70-1.20 [facility] Comment on above: Result Comment: METH OD TRACEABLE TO IDMS STANDARD Performed By: #### C SENAIT VERAS, 37916-6 ####[facility] ([id number])[address] [place] [address] 20789#### 01333-3 ####[facility] ([id number])[address] [address] GFR/1.73 sq M.predicted among non-blacks MDRD (S/P/Bld) [Vol rate/Area] 72 mL/min/{1.73_m2} Normal >59 [facility] Comment on above: Result Comment: Reported eGFR is based on the CKD-EPI 2020 equation that does not use a race coefficient. Performed By: #### C SENAIT VERAS, 74459-8 ####[facility] ([id number])[address] [place] [address] 02512#### 00630-2 ####[facility] ([id number])[address] [address] Glucose [Mass/Vol] 100 mg/dL High 65-99 [facility] Comment on above: Performed By: #### C SENAIT VERAS, ####[facility] ([id number])[address] [place] [address] 93380#### 60235-8 ####[facility] ([id number])[address] [address] Potassium [Moles/Vol] 3.7 mmol/L Normal 3.5-5.0 [facility] Comment on above: Performed By: #### C SENAIT VERAS, ####[facility] ([id number])[address] [place] [address] 74021#### 80586-6 ####[facility] ([id number])[address] [place] [address], [address] [place] [address] Protein [Mass/Vol] 6.5 g/dL Normal 6.0-8.0 [facility] Comment on above: Performed By: #### C BCA, CMP, 85747-4 ####[facility] ([id number])[address] [place] [address] 50395#### 07694-6 ####[facility] ([id number])[address] [place] [address] [place] [address] 70684 Sodium [Moles/Vol] 138 mmol/L Normal 134-146 [facility] Comment on above: Performed By: #### C BCA, CMP, 90752-8 ####[facility] ([id number])[address] [place] [address] 03388#### 74085-7 ####[facility] ([id number])[address] [place] [address], [address] [place] [address] Urea nitrogen [Mass/Vol] 24 mg/dL High 5-23 [facility] Comment on above: Performed By: #### C BCA, CMP, 71221-8 ####[facility] ([id number])[address] [place] [address] 89772#### 93916-9 ####[facility] ([id number])[address] [place] [address], [address] [place] [address] Lipid 1996 panelon 5 Cholesterol [Mass/Vol] 181 mg/dL Normal 150-200 [facility] Comment on above: Performed By: #### C BCA, CMP, ####[facility] ([id number])[address] [place] [address] 42197#### 18962-8 ####[facility] ([id number])[address], [address] [place] [address] Cholesterol in HDL [Mass/Vol] 35 mg/dL Low >39 [facility] Comment on above: Result Comment: HDL <40 mg/dL - High Risk HDL > or = 40mg/dL- Desirable HDL >60 mg/dL - Negative Risk Performed By: #### C RITO, CMP, 32754-1 ####[facility] ([id number])[address] [place] [address] 82754#### 93964-7 ####[facility] ([id number])[address] [facility], [address] [place] [address] Cholesterol in LDL [Mass/Vol] 83 mg/dL Normal <130 [facility] Comment on above: Result Comment: LDL <100 mg/dL - Desirable LDL >160 mg/dL - High Risk Performed By: #### C RITO, CMP, 02085-6 ####[facility] ([id number])[address] [place] [address] 84866#### [id number] ####[facility] ([id number])[address] [address] Cholesterol in VLDL [Mass/Vol] 63 mg/dL High 0-30 [facility] Comment on above: Performed By: #### C BCA, CMP, 86320-2 ####[facility] ([id number])[address] [place] [address] 00014#### 01612-8 ####[facility] ([id number])[address], [place] [address] CHOLESTEROL:HDL 5.2 High 1.0-5.0 [facility] Comment on above: Performed By: #### Nya VERAS CMP, 98597-2 ####[facility] ([id number])[address] [place] [address] 95462#### 69184-8 ####[facility] ([id number])2130 [facility], [address] [place] [address] 42868 Triglyceride [Mass/Vol] 316 mg/dL High 27-150 [facility] Comment on above: Performed By: #### Nya VERAS [facility], 71287-9 ####[facility] ([id number])[address] [place] [address]#### 81132-5 ####[facility] ([id number])0 [facility], [address] [place] [address]673 MAGNESIUMon 08-24-2024 Magnesium [Mass/Vol] 2.3 mg/dL Normal 1.8-2.6 [facility] Comment on above: Performed By: #### 1 9123-9 ####[facility] ([id number])[address] [place] [address]105 Magnesium [Mass/Vol] 1.8 mg/dL Normal 1.8-2.6 [facility] Comment on above: Performed By: #### C RITO [facility], 41606-3 ####[facility] ([id number])[address] [place] [address] 91192#### 11231-3 ####[facility] ([id number])[address], [address] [place] [address] 36571 MR BRAIN WO CONTon MR BRAIN WO CONT MR BRAIN WO CONT EXAM:MR BRAIN WO CONT INDICATION: Neuro deficit, acute, stroke suspected COMPARISON: 08/23/2024 TECHNIQUE: Multiplanar multisequence noncontrast MR sequences through the head/brain. BRAIN FINDINGS: Acute infarct within the left MCA territory predominantly involving the left insula as well as the left inferior frontal gyrus/frontal operculum smaller infarct is seen within the left inferior parietal lobule and posterior left temporal lobe. Gyriform pattern of susceptibility centered along the infarct territory likely representing petechial hemorrhage. No mass, mass effect, or midline shift. Ventricles and Sulci: Normal for age. Extra-Axial Spaces: No extra-axial fluid collection. Intracranial Flow-Voids: Arterial and venous sinus flow voids appear normal. Orbits: Normal Paranasal Sinuses: Mild polypoid mucosal thickening Mastoid Air Cells: Clear Cranium: Normal Extracranial Soft Tissues: Normal IMPRESSION: Left MCA territory infarct predominantly involving the insula and left frontal operculum. Gyriform pattern of susceptibility indicating petechial hemorrhage. Smaller infarcts are seen within the left posterior temporal lobe and inferior parietal lobule. THIS REPORT CONTAINS A SIGNIFICANT RESULT AND/OR RECOMMENDATION, WHICH REQUIRES THE ATTENTION OF THE LICENSED CAREGIVER RESPONSIBLE FOR THIS PATIENT. THEREFORE, I SPECIFICALLY DESIGNATED THIS REPORT TO BE TELEPHONED BY THE RADIOLOGY DEPARTMENT. FINDINGS WERE INSTRUCTED TO BE CALLED TO THE CLINICAL SERVICE ON 08/24/2024 8:33 AM Finalized by Baltazar Olivera on 08/24/2024 8:34 AM Normal [facility] POTASSIUMon 08-24-2024 Potassium [Moles/Vol] 3.8 mmol/L Normal 3.5-5.0 [facility] Comment on above: Performed By: #### 2 823-3 ####[facility] ([id number])[address] [place] [address] CBC AND AUTO DIFFon 08-24-19 25 ABSOLUTE BASOPHIL 0.1 X10E9/L Normal 0.0-0.2 [facility] Comment on above: Performed By: #### C BCA, CMP, PINR, 28026-2, THYR #### [facility] ([id number]) [address] [place] [address] #### HA1C #### [facility] ([id number]) [address] [facility], [address] [place] [address] ABSOLUTE NEUTROPHIL 7.5 X10E9/L High 1.5-6.6 [facility] Comment on above: Performed By: #### C BCA, CMP, PINR, 53193-9, THYR #### [facility] ([id number]) [address] [place] [address] #### HA1C #### [facility] ([id number]) [address] [place] [address], [address] [place] [address] Basophils/100 WBC (Bld) 0.4 % Normal [facility] Comment on above: Performed By: #### C BCA, CMP, PINR, 93956-7, THYR #### [facility] ([id number]) [address] [place] [address] 9[address] #### HA1C #### [facility] ([id number]) [address] [place] [address], [address] [place] [address] Eosinophils (Bld) [#/Vol] 0.4 10*3/uL Normal 0.0-0.4 [facility] Comment on above: Performed By: #### C BCA, CMP, PINR, 84656-7, THYR #### [facility] ([id number]) [address] [place] [address] 11671 #### HA1C #### [facility] ([id number]) [address] [place] [address], [address] [place] [address] Eosinophils/100 WBC (Bld) 3.0 % Normal [facility] Comment on above: Performed By: #### C BCA, CMP, PINR, 79935-9, THYR #### [facility] ([id number]) [address] [place] [address] 724[address] #### HA1C #### [facility] ([id number]) [address] [facility], [address] [place] [address] Erythrocyte distribution width (RBC) [Ratio] 13.6 % Normal 11.5-15.0 [facility] Comment on above: Performed By: #### C BCA, CMP, PINR, 22816-0, THYR #### [facility] ([id number]) [address] [place] [address] 98166 #### HA1C #### [facility] ([id number]) [address] [facility], [address] [place] [address] Hematocrit (Bld) [Volume fraction] 43.1 % Normal 39-49 [facility] Comment on above: Performed By: #### C BCA, CMP, PINR, 11499-4, THYR #### [facility] ([id number]) [address] [place] [address] 8[address] #### HA1C #### [facility] ([id number]) [facility]0 [facility], [address] [place] [address] Hemoglobin (Bld) [Mass/Vol] 14.9 g/dL Normal 13.0-17.0 [facility] Comment on above: Performed By: #### C BCA, CMP, PINR, 89727-7, THYR #### [facility] ([id number]) [address] [place] [address] 54[address] #### HA1C #### [facility] ([id number]) [address] [place] [address], [address] [place] [address] Lymphocytes (Bld) [#/Vol] 3.1 10*3/uL Normal 1.0-3.5 [facility] Comment on above: Performed By: #### C BCA, CMP, PINR, 18600-8, THYR #### [facility] ([id number]) [address] [place] [address] 85703 #### HA1C #### [facility] ([id number]) [address], [address] [place] [address] Lymphocytes/100 WBC (Bld) 25.7 % Normal [facility] Comment on above: Performed By: #### C BCA, CMP, PINR, 18903-4, THYR #### [facility] ([id number]) [address] [place] [address] 29514 #### HA1C #### [facility] ([id number]) [address], [address] [place] [address] MCH (RBC) [Entitic mass] 29.6 pg Normal 27-34 [facility] Comment on above: Performed By: #### C BCA, CMP, PINR, 51959-0, THYR #### [facility] ([id number]) [address] [place] [address] 84096 #### HA1C #### [facility] ([id number]) [address], [address] [place] [address] MCHC (RBC) [Mass/Vol] 34.5 g/dL Normal 32-36 [facility] Comment on above: Performed By: #### C BCA, CMP, PINR, 64329-2, THYR #### [facility] ([id number]) [address] [place] [address] 115[address] #### HA1C #### [facility] ([id number]) [address], [address] [place] [address] MCV (RBC) [Entitic vol] 86 fL Normal 80-100 [facility] Comment on above: Performed By: #### C BCA, CMP, PINR, 77804-8, THYR #### [facility] ([id number]) [address] [place] [address] 79684 #### HA1C #### [facility] ([id number]) [address], [address] [place] [address] Monocytes (Bld) [#/Vol] 1.1 10*3/uL High 0-0.9 [facility] Comment on above: Performed By: #### C BCA, CMP, PINR, 93894-0, THYR #### [facility] ([id number]) [address] [place] [address] 79583 #### HA1C #### [facility] ([id number]) [address] [facility], [address] [place] [address] Monocytes/100 WBC (Bld) 8.8 % Normal [facility] Comment on above: Performed By: #### C BCA, CMP, PINR, 47137-1, THYR #### [facility] ([id number]) [address] [place] [address] #### HA1C #### [facility] ([id number]) [address] [facility], [address] [place] [address] Neutrophils/100 WBC (Bld) 62.1 % Normal [facility] Comment on above: Performed By: #### C BCA, CMP, PINR, 24243-4, THYR #### [facility] ([id number]) [address] [place] [address] #### HA1C #### [facility] ([id number]) [address] [facility], [address] [place] [address] Platelet mean volume (Bld) [Entitic vol] 8.6 fL Normal 7-12 [facility] Comment on above: Performed By: #### C BCA, CMP, PINR, 76426-7, THYR #### [facility] ([id number]) [address] [place] [address] 33458 #### HA1C #### [facility] ([id number]) [address] [facility], [address] [place] [address] Platelets (Bld) [#/Vol] 230 10*3/uL Normal 150-450 [facility] Comment on above: Performed By: #### C BCA, CMP, PINR, 94515-0, THYR #### [facility] ([id number]) [address] [place] [address] 05578 #### HA1C #### [facility] ([id number]) [address] [place] [address], [address] [place] [address] RBC COUNT 5.03 X10E12/L Normal 4.10-5.70 [facility] Comment on above: Performed By: #### C BCA, CMP, PINR, 63731-7, THYR #### [facility] ([id number]) [address] [place] [address] #### HA1C #### [facility] ([id number]) [address] [place] [address], [address] [place] [address] WBC (Bld) [#/Vol] 12.1 10*3/uL High 4.0-11.0 [facility] Comment on above: Performed By: #### C BCA, CMP, PINR, 77988-3, THYR #### [facility] ([id number]) [address] [place] [address] 44781 #### HA1C #### [facility] ([id number]) [address] [place] [address], [address] [place] [address] COMPREHENSIVE METABOLIC PANE Alexey 08-23-2024 Albumin [Mass/Vol] 5.1 g/dL Normal 3.2-5.3 [facility] Comment on above: Performed By: #### C BCA, CMP, PINR, 20582-4, THYR #### [facility] ([id number]) [address] [place] [address] 65[address] #### HA1C #### [facility] ([id number]) [address], [address] [place] [address] ALP [Catalytic activity/Vol] 88 U/L Normal 39-130 [facility] Comment on above: Performed By: #### C BCA, CMP, PINR, 25580-4, THYR #### [facility] ([id number]) [address] [place] [address] 60[address] #### HA1C #### [facility] ([id number]) [address] [facility], [address] [place] [address] ALT [Catalytic activity/Vol] 54 U/L High 0-40 [facility] Comment on above: Performed By: #### C BCA, CMP, PINR, 31336-1, THYR #### [facility] ([id number]) [address] [place] [address] 644[address] #### HA1C #### [facility] ([id number]) [address] [facility], [address] [place] [address] Anion gap [Moles/Vol] 10 mmol/L Normal 5-15 [facility] Comment on above: Performed By: #### C BCA, CMP, PINR, 90090-4, THYR #### [facility] ([id number]) [address] [place] [address] 69829 #### HA1C #### [facility] ([id number]) [address], [address] [place] [address] AST [Catalytic activity/Vol] 32 U/L Normal 0-41 [facility] Comment on above: Performed By: #### C BCA, CMP, PINR, 40507-0, THYR #### [facility] ([id number]) [address] [place] [address] 74[address] #### HA1C #### [facility] ([id number]) [address], [address] [place] [address] Bilirubin [Mass/Vol] 0.9 mg/dL Normal 0.3-1.2 [facility] Comment on above: Performed By: #### C BCA, CMP, PINR, 80302-1, THYR #### [facility] ([id number]) [address] [place] [address] 82256 #### HA1C #### [facility] ([id number]) [address], [address] [place] [address] Calcium [Mass/Vol] 9.8 mg/dL Normal 8.5-10.5 [facility] Comment on above: Performed By: #### C BCA, CMP, PINR, 54624-4, THYR #### [facility] ([id number]) [address] [place] [address] #### HA1C #### [facility] ([id number]) [address] [facility], [address] [place] [address] Chloride [Moles/Vol] 102 mmol/L Normal 98-109 [facility] Comment on above: Performed By: #### C BCA, CMP, PINR, 12336-8, THYR #### [facility] ([id number]) [address] [place] [address] 01870 #### HA1C #### [facility] ([id number]) [address], [address] [place] [address] CO2 [Moles/Vol] 26 mmol/L Normal 22-32 [facility] Comment on above: Performed By: #### C BCA, CMP, PINR, 31941-3, THYR #### [facility] ([id number]) [address] [place] [address] 30566 #### HA1C #### [facility] ([id number]) [address], [address] [place] [address] Creatinine [Mass/Vol] 1.20 mg/dL Normal 0.70-1.20 [facility] Comment on above: Result Comment: METH OD TRACEABLE TO IDMS STANDARD Performed By: #### C BCA, CMP, PINR, 67644-9, THYR #### [facility] ([id number]) [address] [place] [address] #### HA1C #### [facility] ([id number]) [address], [address] [place] [address] GFR/1.73 sq M.predicted among non-blacks MDRD (S/P/Bld) [Vol rate/Area] 70 mL/min/{1.73_m2} Normal >59 [facility] Comment on above: Result Comment: Reported eGFR is based on the CKD-EPI 2020 equation that does not use a race coefficient. Performed By: #### C BCA, CMP, PINR, 54009-8, THYR #### [facility] ([id number]) [address] [place] [address] #### HA1C #### [facility] ([id number]) [address], [address] [place] [address] Glucose [Mass/Vol] 105 mg/dL High 65-99 [facility] Comment on above: Performed By: #### C BCA, CMP, PINR, 07109-7, THYR #### [facility] ([id number]) [address] [place] [address] 19873 #### HA1C #### [facility] ([id number]) [address], [address] [place] [address] Potassium [Moles/Vol] 3.7 mmol/L Normal 3.5-5.0 [facility] Comment on above: Performed By: #### C BCA, CMP, PINR, 75819-3, THYR #### [facility] ([id number]) [address] [place] [address] 057[address] #### HA1C #### [facility] ([id number]) [address] [facility], [address] [place] [address] Protein [Mass/Vol] 7.5 g/dL Normal 6.0-8.0 [facility] Comment on above: Performed By: #### C BCA, CMP, PINR, 43075-0, THYR #### [facility] ([id number]) [address] [place] [address] 60717 #### HA1C #### [facility] ([id number]) [address] [facility], [address] [place] [address] Sodium [Moles/Vol] 138 mmol/L Normal 134-146 [facility] Comment on above: Performed By: #### C BCA, CMP, PINR, 89389-7, THYR #### [facility] ([id number]) [address] [place] [address] 61885 #### HA1C #### [facility] ([id number]) [address] [facility], [address] [place] [address] Urea nitrogen [Mass/Vol] 29 mg/dL High 5-23 [facility] Comment on above: Performed By: #### C BCA, CMP, PINR, 19166-1, THYR #### [facility] ([id number]) [address] [place] [address] 79705 #### HA1C #### [facility] ([id number]) [address], [address] [place] [address] CT BRAIN WO CONT STROKE ALER Raul 08-23-2024 CT BRAIN WO CONT STROKE ALERT CT BRAIN WO CONT STROKE ALERT CLINICAL INFORMATION: Neuro deficit, acute, stroke suspected TECHNIQUE: CT BRAIN WO CONT STROKE ALERT CT images of the brain were obtained. There appears to be loss of the left insular ribbon with hypoattenuation suggesting at acute to subacute left MCA infarct. Ventricles are nondilated. No acute hemorrhage. Sinuses clear. Osseous structures appear intact. IMPRESSION: Suspect acute to subacute left MCA distribution infarct with loss of the left insular ribbon. All CT scans at this facility use dose modulation, iterative reconstruction, and/or weight based dosing when appropriate to reduce radiation dose to as low as reasonably achievable. Finalized by Dillon Roth MD on 08/23/2024 5:23 PM Normal [facility] CT CTA CAROTIDon 08-23-[address]OT[address] ANGIOGRAM OF THE NECK CLINICAL INFORMATION: Neuro deficit, acute, stroke suspected. TECHNIQUE: CT angiogram performed following intravenous administration of nonionic intravenous contrast. Coronal and sagittal and 3-D volume rendered maximum intensity projection images generated and reviewed under concurrent physician supervision. Automated exposure control utilized. The [place] Symptomatic Carotid Endarterectomy Trial (NASCET) method for calculating the degree of stenosis was utilized for stenosis measurements. COMPARISON: CT head and noncontrast head CT dated 08/23/2024 FINDINGS: There is a standard aortic arch configuration. There is no significant stenosis at the arch origins of the vessels. The visualized portions of the subclavian arteries are unremarkable. The common carotid arteries are well opacified without evidence for significant stenosis. The right carotid bifurcation is unremarkable with a widely patent origin of the internal carotid artery. The left carotid bifurcation is unremarkable with a widely patent origin of the internal carotid artery. The internal carotid arteries are symmetric and well opacified throughout their cervical courses. The vertebral arteries are symmetric. The vertebral arteries are well opacified throughout their cervical courses and join to form a normal diameter basilar artery. IMPRESSION: Normal CTA neck. There is no evidence for stenosis in the neck. All CT scans at this facility use dose modulation, iterative reconstruction, and/or weight based dosing when appropriate to reduce radiation dose to as low as reasonably achievable. Finalized by Jonny Zabala MD on 08/23/2024 5:51 PM Normal [facility] CT CTA HEADon 08-23-[address]A HEAD CT angiogram head with contrast History: Acute neurologic deficit. Trouble speaking Technique: CT angiogram of the head was performed following intravenous administration of 100 cc Omnipaque 350 nonionic intravenous contrast. 3-D maximum intensity projection images generated and reviewed under concurrent physician supervision. Automated exposure control was utilized. Arterial blood flow was measured to assist the stroke clinical team in the diagnosis of large vessel occlusion in patients undergoing screening for acute ischemic stroke using Rapid AI software when clinically indicated. Findings: There is no prior CT angiograms of the head available for comparison. CT angiography of the head does not demonstrate any occlusion or high-grade stenosis of the major intracranial vessels on this study. The distal branches of the right middle cerebral artery appear slightly smaller than the corresponding branches on the left. The significance of this finding is unknown. Impression: There is no definite evidence of major vessel occlusion or high-grade stenosis. Possible asymmetric decrease in contrast in right middle cerebral artery branches compared to the left may be artifact or may be due to unrecognized limiting stenosis. Please correlate with CT angiography of the neck. If the patient has definite right hemispheric symptoms, angiography may be useful. All CT scans at this facility use dose modulation, iterative reconstruction, and/or weight based dosing when appropriate to reduce radiation dose to as low as reasonably achievable. C1 Finalized by Genaro Aguilar MD on 08/23/2024 5:44 PM Normal [facility] Glucose Glucometer (BldC) [M ass/Vol]on 08-23-2024 Glucose [Mass/Vol] 96 mg/dL Normal 65-99 [facility] HGB A1C (GLYCO-HGB)on 2024 Glucose [Mass/Vol] 126 mg/dL Normal [facility] Comment on above: Performed By: #### C BCA, CMP, PINR, 72250-4, THYR #### [facility] ([id number]) [address] [facility], [place] [address] #### HA1C #### [facility] ([id number]) [address] [facility], [address] [place] [address] HbA1c (Bld) [Mass fraction] 6.0 % High 4.4-5.6 [facility] Comment on above: Result Comment: NOTE ADA Guidelines Result HgbA1c Normal : less than 5.7 % Prediabetes : 5.7 % to 6.4 % Diabetes : > 6.4 % Use with caution in patients with abnormal hemoglobin variants as the half-life of red blood cells and in vivo glycation rates are affected. Performed By: #### C BCA, CMP, PINR, 43982-2, THYR #### [facility] ([id number]) [address] [place] [address] #### HA1C #### [facility] ([id number]) [address] [place] [address], [address] [place] [address] PROTIME AND INRon 08-23-2024 INR Coag (PPP) [Relative time] 0.8 {INR} Low 0.9-1.2 [facility] Comment on above: Performed By: #### C BCA, CMP, PINR, 61997-1, THYR #### [facility] ([id number]) [address] [place] [address] #### HA1C #### [facility] ([id number]) [address] [place] [address] [address] [place] [address] PT Coag (PPP) [Time] 9.8 s Normal 9.8-13.2 [facility] Comment on above: Result Comment: NEW REFERENCE RANGE Performed By: #### C BCA, CMP, PINR, 71619-9, THYR #### [facility] ([id number]) [address] [place] [address] 86[address] #### HA1C #### [facility] ([id number]) [address] [place] [address] THYROID PROFILEon 08-23-2024 Free T4 [Mass/Vol] 0.77 ng/dL Normal 0.61-1.60 [facility] Comment on above: Performed By: #### C BCA, CMP, PINR, 70477-7, THYR #### [facility] ([id number]) [address] [place] [address] 6[address] #### HA1C #### [facility] ([id number]) [address] [facility], [address] [place] [address] TSH 6.48 uIU/mL High 0.49-4.67 [facility] Comment on above: Performed By: #### C BCA, CMP, PINR, 25158-4, THYR #### [facility] ([id number]) [address] [place] [address] #### HA1C #### [facility] ([id number]) [address] [facility], [address] [place] [address] aPTT Coag (PPP) [Time]on aPTT Coag (Bld) [Time] 27 s Normal 26-37 [facility] Comment on above: Result Comment: NEW REFERENCE RANGE Performed By: #### C BCA, CMP, PINR, 47460-8, THYR #### [facility] ([id number]) [address] [place] [address] #### HA1C #### [facility] ([id number]) [address] [facility], [address] [place] [address] Vital Signs Date Time Vital Sign Value Performing Clinician Facility 09-28-2024 08:53-0400 Body height 175.3 cm Apryl Zapata MD Work Phone: [facility] 09-28-2024 08:53-0400 Body mass index (BMI) [Ratio] 34.26 kg/m2 Apryl Zapata MD Work Phone: [facility] 09-28-2024 08:53-0400 Body weight 105.23 kg Apryl Zapata MD Work Phone: [facility] [facility] 09-28-2024 08:53-0400 Diastolic blood pressure 72 mm[Hg] Apryl Zapata MD Work Phone: [facility] 09-28-2024 08:53-0400 Heart rate 63 /min Apryl Zapata MD Work Phone: [facility] 09-28-2024 08:53-0400 SaO2% (BldA) [Mass fraction] 98 % Apryl Zapata MD Work Phone: [facility] 09-28-2024 08:53-0400 Systolic blood pressure 104 mm[Hg] Apryl Zapata MD Work Phone: [facility] 08-30-2024 13:06-0400 Body height 175.9 cm Eduarda Beth MD Work Phone: [facility] 08-30-2024 13:06-0400 Body mass index (BMI) [Ratio] 35.19 kg/m2 Eduarda Beth MD Work Phone: [facility] 08-30-2024 13:06-0400 Body weight 108.86 kg Eduarda Beth MD Work Phone: [facility] 08-30-2024 13:06-0400 Diastolic blood pressure 74 mm[Hg] Eduarda Beth MD Work Phone: [facility] 08-30-2024 13:06-0400 Heart rate 66 /min Eduarda Beth MD Work Phone: [facility] 08-30-2024 13:06-0400 Respiratory rate 18 /min Eduarda Beth MD Work Phone: [facility] 08-30-2024 13:06-0400 SaO2% (BldA) [Mass fraction] 94 % Eduarda Beth MD Work Phone: [facility] 08-30-2024 13:06-0400 Systolic blood pressure 122 mm[Hg] Eduarda Beth MD Work Phone: [facility] 05-11-2024 11:47-0500 Body height 175.9 cm Eduarda Beth MD Work Phone: [facility] 05-11-2024 11:47-0500 Body mass index (BMI) [Ratio] 35.92 kg/m2 Eduarda Beth MD Work Phone: [facility] 05-11-2024 11:47-0500 Body weight 111.13 kg Eduarda Beth MD Work Phone: [facility] 05-11-2024 11:47-0500 Diastolic blood pressure 88 mm[Hg] Eduarda Beth MD Work Phone: [facility] 05-11-2024 11:47-0500 Heart rate 50 /min Eduarda Beth MD Work Phone: [facility] 05-11-2024 11:47-0500 Respiratory rate 18 /min Eduarda Beth MD Work Phone: [facility] 05-11-2024 11:47-0500 SaO2% (BldA) [Mass fraction] 96 % Eduarda Beth MD Work Phone: [facility] 05-11-2024 11:47-0500 Systolic blood pressure 136 mm[Hg] Eduarda Beth MD Work Phone: [facility] Encounters Encounter Date Encounter Type Care Provider Facility Start: 10-14-2024 End: 10-14-2024 Telephone encounter [facility], A Department of [facility] Comment on above: Cancellation Start: 09-30-2024 End: 09-30-2024 ambulatory [facility] Start: 09-28-2024 End: 09-28-2024 Office outpatient new 60 minutes Ana López APRN-TAX COMPLIANCE MANAGER Work Phone: [facility] Comment on above: Cerebrovascular acci dent (CVA), unspecified mechanism (CMS- HCC) (Primary Dx); Hypercholesteremia; Benign essential HTN Start: 09-28-2024 End: 09-28-2024 ambulatory [facility] Start: 09-27-2024 End: 09-27-2024 Telephone encounter Shara Jeff CMA [facility] Start: 09-16-2024 End: 09-16-2024 Chart abstracting Scanning Provider External [facility] Start: 09-01-2024 End: 09-01-[address] [facility] Start: 08-30-2024 End: 08-30-2024 Transitional care manage srvc 7 day discharge Eduarda Beth MD Work Phone: [facility] Comment on above: Hypercholesteremia ( CMS/HCC) (Primary Dx); Benign essential HTN (CMS/HCC); Post-traumatic osteoarthritis of left knee; Cerebrovascular accident (CVA), unspecified mechanism (CMS/HCC); Expressive aphasia Start: 08-30-2024 End: 08-30-2024 ambulatory EDUARDA BETH Not Available Start: 08-25-2024 End: 08-25-2024 Telephone encounter Eduarda Beth MD Work Phone: [facility] Start: 08-25-2024 [facility] Start: 08-23-2024 End: 08-24-2024 Evaluation and management of inpatient [facility] Start: 05-11-2024 End: 05-11-2024 Patient encounter status Eduarda Beth MD Work Phone: [facility] Work Phone: Start: 05-11-2024 End: 05-11-2024 Periodic preventive med est patient 40-64yrs Eduarda Beth MD Work Phone: [facility] Comment on above: Routine general medi stanley examination at a health care facility (Primary Dx); Benign essential HTN (CMS/HCC); Hypercholesteremia (CMS/HCC); Chest pain, unspecified type Start: 05-11-2024 End: 05-11-2024 ambulatory EDUARDA BETH Not Available Start: 11-01-2022 End: 11-02-2022 ambulatory ALEJANDRO BELLAMIBLOSSOM . Facility:[facility] Start: 08-01-2022 End: 08-02-[address] MATHIEU NEWTON . Facility:[facility] Start: 05-02-2022 End: 05-03-[address] MATHIEU NEWTON . Facility:[facility] Start: 01-31-2022 End: 08-12-[address] EDUARDA BETH Facility:[facility] Start: 01-31-2022 End: 02-01-[address] MATHIEU NEWTON . Facility:[facility] Start: 11-08-2021 End: 11-09-[address] MATHIEU NEWTON . Facility:[facility] Procedures Date Procedure Procedure Detail Performing Clinician Start: 08-23-2024 Adult depression scr eening assessment Scanning External Plan of Treatment Date Care Activity Detail Author Start: 09-28-2025 Adult BMI Screening Adult BMI Screening [facility] Start: 09-28-2025 Tobacco Screening Tobacco Screening [facility] Start: 08-23-2025 Adult BMI Screening Adult BMI Screening [facility] Start: 08-23-2025 Depression Screening Depression Screening [facility] Start: 05-12-2025 End: 05-12-2025 Patient encounter procedure 05/12/2025 11:00 AM EST Office Visit [facility] [address] [facility] [place] [phone] Eduarda Beth MD [address] [place] [address] [facility] Start: 03-02-2025 End: 03-02-2025 Patient encounter procedure 03/02/2025 1:20 PM EDT Office Visit [facility] [address] [facility] [place] [phone] Eduarda Beth MD [address] [place] [address] [facility] Start: 02-21-2025 Influenza vaccination Influenza Vaccine [facility] Start: 12-27-2024 End: 12-27-2024 Patient encounter procedure 12/27/2024 9:30 AM EDT Office Visit [facility] [address] [place] [phone] Ct Enriquez, DIRECTOR [facility]-TAX COMPLIANCE MANAGER [address] [place] [phone] [facility] Start: 10-19-2024 End: 10-19-2024 Patient encounter procedure 10/19/2024 1:30 PM EDT Office Visit [facility] Department of [place] [id number] [facility] [address] [place] [phone] Nita Storm MD [address] [facility] [address] [place] [address] [facility], A Department of [facility] Start: 09-28-2024 End: 09-28-2024 Patient encounter procedure 09/28/2024 9:00 AM EDT Office Visit [facility] [address] [facility] [address] [place] [phone] Ana López, DIRECTOR [facility]-TAX COMPLIANCE MANAGER [address] [place] [address] Apryl Zapata MD [address] [place] [address] [facility] Start: 08-30-2024 End: 08-30-2024 Patient encounter procedure 08/30/2024 1:00 PM EDT Office Visit [facility] [address] [place] [phone] Emily Hand NP [address] [place] [address] [facility] Start: 05-11-2024 End: 05-11-2025 ECG 12 lead ECG 12 lead ECG Routine Chest pain, unspecified type Expected: 05/11/2024 (Approximate), Expires: 05/11/2025 [facility] Comment on above: Expected: 05/11/2024 (Approximate), Expi res: 05/11/2025 Start: 05-11-2024 End: 05-11-2025 Troponin I.cardiac [Mass/volume] in Serum or Plasma Troponin I Lab Routine Chest pain, unspecified type Expected: 05/11/2024 (Approximate), Expires: 05/11/2025 [facility] Work Phone: Comment on above: Expected: 05/11/2024 (Approximate), Expi res: 05/11/2025 Start: 2015 Administration of varicella zoster vaccine Zoster (Shingles) Vaccine (1 of 2) [facility] Start: 1984 DTaP,Tdap and Td Vaccines (1 - Tdap) DTaP,Tdap and Td Vaccines (1 - Tdap) [facility] Start: 1983 Adult BMI Follow Up Plan Adult BMI Follow Up Plan [facility] Start: 1977 Tobacco Screening Tobacco Screening [facility] Start: 1965 Screening for malignant neoplasm of colon [facility] End: 09-28-2025 Cholesterol in LDL [Mass/volume] in Serum or Plasma LDL cholesterol, direct Lab Routine Hypercholesteremia Benign essential HTN 1 Occurrences starting 09/28/2024 until 09/28/2025 [facility] Work Phone: Comment on above: 1 Occurrences starting 09/28/2024 until 09/28/2025 Immunizations Immunization Date Immunization Notes Care Provider [facility] 04-09-2024 influenza, seasonal, injectable, preservative free Eduarda Beth MD Work Phone: [facility] 04-09-2024 influenza virus vaccine, unspecified formulation Shara Jeff [facility] 05-08-2023 influenza, injectabl e, quadrivalent, preservative free Eduarda Beth MD Work Phone: [facility] Work Phone: 05-07-2022 influenza, injectabl e, quadrivalent, preservative free Eduarda Beth MD Work Phone: [facility] 03-14-2022 Moderna SARS-CoV-2 50mcg/0.5mL Booster Eduarda Beth MD Work Phone: [facility] 05-04-2021 influenza, injectabl e, quadrivalent, preservative free Eduarda Beth MD Work Phone: [facility] 03-23-2019 influenza, injectabl e, quadrivalent, contains preservative Eduarda Beth MD Work Phone: [facility] 05-02-2014 influenza, seasonal, injectable, preservative free Eduarda Beth MD Work Phone: [facility] Healthcare Payers Date Payer Category Payer Commercial Managed C are - POS [employer] [id number] 2023 [facility] [employer]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 [facility] Summary Purpose Family History No Family History Records FoundNo Family History Records FoundNo Family History Records Found Advance Directives Date Activated Date Inactivated Comments 08/23/2024 7:40 PM 08/24/2024 6:05 PM Additional Source Comments (unrecognized sect ion and content) No Status Records FoundNo Status Records FoundNo Status Records Found INFORMATION SOURCE (unrecogn ized section and content) DATE CREATED AUTHOR 11/02/2022 [facility] DATE CREATED AUTHOR AUTHOR'S ORGANIZ ATION 09/01/2024 [facility] EPIC DATE CREATED AUTHOR AUTHOR'S ORGANIZ ATION 10/01/2024 [facility] Reason for Visit (unrecogniz ed section and content) Reason Comments Annual Exam Reason Comments Hospital Follow-up Reason Comments 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 [facility], LABS AT [facility] 3-12 FOR 30 DAYS SCHED W/ PT Specialty Diagnoses / Procedures Referred By Contac t Referred To Contact Cardiology Diagnoses Hypercholesteremia Benign essential HTN Diastolic congestive heart failure, NYHA class 1, unspecified congestive heart failure chronicity ([facility]) Ana López, DIRECTOR COMM[facility]ITY CENTER-TA[employer] COMPLIANCE MANAGER [address] [place] [address] Phone: tel: fax: [facility] [address] [place] [address] Phone: tel: fax: Referral ID Status Reason Start Date Expiration Date Visits Requested Visits Authorized [id number] Pending Review Specialty Services Required 08/24/2024 08/24/2025 1 1 Reason Onset Date Comments Cancellation 10/14/2024 Care Teams (unrecognized sec tion and content) Plugger Relationship Specialty Start Date End Date Eduarda Beth MD [address] [place], [place] [id number] PCP - General Family Medicine 10/29/22 Plugger Relationship Specialty Start Date End Date Eduarda Beth MD [address] [facility] [place] [address] PCP - General Family Medicine 10/29/22 Plugger Relationship Specialty Start Date End Date Eduarda Beth MD [address] [facility] [place] [address] PCP - General Family Medicine 10/29/22 Plugger Relationship Specialty Start Date End Date Eduarda Beth MD [address] [facility] [place] [address] PCP - General Family Medicine 08/25/24 Plugger Relationship Specialty Start Date End Date Eduarda Beth MD [address] [facility] [place] [address] PCP - General Family Medicine 08/25/24 Plugger Relationship Specialty Start Date End Date Eduarda Beth MD [address] [facility] [place] [address] PCP - General Family Medicine 08/25/24 Plugger Relationship Specialty Start Date End Date Eduarda Beth MD [address] [facility] [place] [address] PCP - General Family Medicine 08/25/24 FOR RECORDS PERTAINING TO PATIENTS WHO ARE [...] BE BASED ON THE PRIMARY CLINICAL RECORDS. [facility] provides no warranty or guarantee of the accuracy or completeness of information in this document.
--- NOTE | 2024-11-04 12:56 | PM.CN ---
Consult Note: HPI Data of Consult Patient: known to practice within the last 3 years Requesting Physician: Poly Kurtz NP Primary Care Provider: RICO MCDONNELL Consult Narrative Reason for consult: f/u Narrative: Jose Forde a pleasant 59 year old male presents for evaluation and management of chronic thoracic back pain post surgical repair. Patient has been doing well on current medication regimen, noticing improvement in pain and function, no side effects from medications. Pain today 4/10 pressure worse with activity, improved with rest. Patient has been able to continue to do housework, golf, ride in the car for long periods of time, and engage in social activities as his pain is well controlled. since last visit he did have a stroke secondary to HTN, following with cardiology for further care, no ongoing deficits. cc:: CC: Poly Kurtz NP Review of Systems ROS Status of ROS 10 or more systems reviewed and unremarkable except as noted in history and below Musculoskeletal Reports: back pain Meds Home Medications and Allergies Home Medications ?Medication ?Instructions ?Recorded ?Confirmed ?Type atorvastatin 10 mg tablet (Lipitor) 10 mg PO DAILY 02/20/23 02/20/23 History hydrochlorothiazide 25 mg tablet 25 mg PO DAILY 02/20/23 02/20/23 History losartan 100 mg tablet 100 mg PO DAILY 02/20/23 02/20/23 History metoprolol tartrate 100 mg tablet 100 mg PO BID 02/20/23 02/20/23 History (Lopressor) spironolactone 25 mg tablet 25 mg PO DAILY 02/20/23 02/20/23 History (Aldactone) tizanidine 4 mg tablet 8 mg (2 x 4 mg) PO DAILY PRN 11/05/23 Rx muscle spasticity #180 tabs baclofen 10 mg tablet 10 mg PO TID 05/12/24 05/12/24 History tizanidine 4 mg tablet 4 mg PO BID PRN muscle spasticity 05/12/24 Rx #60 tabs oxycodone-acetaminophen 5 mg-325 1 tab PO DAILY PRN pain #30 tabs 08/12/24 Rx mg tablet (Percocet) tizanidine 4 mg tablet 8 mg (2 x 4 mg) PO DAILY PRN 08/12/24 Rx muscle spasticity #60 tabs oxycodone-acetaminophen 5 mg-325 1 tab PO DAILY PRN pain #30 tabs 09/02/24 Rx mg tablet (Percocet) naloxone 4 mg/actuation nasal 4 mg intranasal Q2M PRN opioid 10/01/24 Rx spray (Narcan) overdose #2 ea oxycodone-acetaminophen 5 mg-325 1 tab PO DAILY PRN pain #30 tabs 10/01/24 Rx mg tablet (Percocet) Allergies Allergy/AdvReac Type Severity Reaction Status Date / Time No Known Drug Allergies Allergy Verified 02/20/23 12:36 Exam Constitutional Documenting provider has reviewed patient's vital signs: yes Common normals: no apparent distress, oriented x3, healthy appearing, alert and well nourished General appearance: cooperative Nutritional appearance: overweight HENMT Common normals: normocephalic, hearing grossly normal bilaterally and moist oral mucous membranes Head and scalp: normocephalic Eye Common normals: PERRL Pupil: PERRL Neck & C-Spine Common normals: full ROM General: normal visual inspection Chest Common normals: inspection of chest normal Respiratory Common normals: normal respiratory effort, no retractions and no use of accessory muscles Back & Pelvis Thoracic spine/upper back: ROM limited, pain with ROM, paraspinal muscle tenderness and other soft tissue findings (hardware palpable) Lumbar spine/lower back: normal to inspection, lumbar ROM normal, paraspinal muscle spasm and straight leg raise negative bilaterally Extremity Common normals: normal to inspection, full ROM, no joint enlargement, no calf tenderness and no pedal edema Neuro Common normals: oriented x3, CN's II-XII intact bilaterally, moves all extremities, no focal motor deficits, no sensory deficits noted and deep tendon reflexes 2+ bilaterally Sensorium/orientation: alert Motor exam: strength 5/5 throughout and no movement abnormalities noted Psych Common normals: mental status grossly normal, thought process normal, cooperative, affect normal, speech normal and activity/motor behavior normal Speech: normal speech Thought process: normal thought process Assessment and Plan Assessment and Plan (1) Thoracic spondylosis: (2) Chronic prescription opiate use: Assessment and Plan: Medications help patient to complete ADLs, care for self, work I have refilled the patient's opioid prescriptions at the above noted dose and schedule.? I feel these medications are improving the patient's quality of life and allow them to tolerate activities of daily living as well as participate in recreational activity.? The patient does not report intolerable side effects. The patient is NOT opioid naive and non-pharmacologic and non-opioid treatment has failed to significantly relieve the patient's pain and improve functionality. The patient has a diagnosis that is related to a somatic or visceral pain etiology. ? ?? I reviewed with the patient the potential risks and side effects with the use of?opioid medications including but not limited to respiratory depression,? sedation, and even . I verified the patient has access to naloxone should?these effects occur. I advised the patient to avoid the use of any other? sedation substances including alcohol, THC, and benzodiazepines while?taking opioid medications due to the risk of compounding side effects and? detrimental outcomes. I reviewed the PHOTOGRAPHER'S MODEL, pain treatment agreement, urine?drug screen, and opioid start talking forms. The patient was advised to let? their family know they had Naloxone in case they would need to administer?the medication.? ?? A drug screen was completed within the last year, and no aberrancies were noted regarding their use of controlled substances. The patient understands they are subject to the terms and conditions of the pain contract that they have signed. ? ?? I have checked an [place] report on this patient today and there are no aberrancies noted in the prescribing history.? (3) Muscle spasm: Plan continue percocet 5-325mg QD PRN moderate to severe pain continue tizanidine 8mg HS cannot take NSAIDs due to HTN continue stretching to assist in myofascial pain/spasms f/u 3 months for medication management, sooner if needed
== END 2024-11-04 12:38 | disposition home or self-care (01) ==
PROVIDERS: PCP Family Medicine; Visit Provider Nurse Practitioner
DX: M47.814 Spondylosis without myelopathy or radiculopathy, thoracic region (principal); Z79.891 Long term (current) use of opiate analgesic; M62.838 Other muscle spasm
CPT/HCPCS: G0463

== ENCOUNTER 2025-02-03 12:48 | Outpatient (OUT) | payer BC, SELFPAY ==
--- OUTSIDE RECORDS SUMMARY | 2025-02-03 12:54 | XMS_ITS | CCD ---
Author Organization [facility] Care Team Providers Care Pin Sorter And Bagger Name Role Phone LAKSHMIPATHY ., NARENDRANATH Admitting Ryann vailable LAKSHMIPATHY ., NARENDHANNAATH Attending Ryann vailable SATHYA, DR GÓMEZ Primary [...] Unavailable Eduarda Beth MD Primary Care Provider EDUARDA BETH Attending Unavailable EDUARDA BETH Attending Unavailable Eduarda Beth MD Primary Care Provider [phone] EDUARDA MAGANA B Primary Care Unavailable CIELO DAVID Admitting Unavailable CIELO DAVID Attending Unavailable ANA LÓPEZ Referring Unavailable EDUARDA BETH Primary Care Unavailable ANA LÓPEZ Attending Unavailable ANA LÓPEZ Referring Unavailable EDUARDA BETH Primary Care Unavailable APRYL ZAPATA Attending Unavailable ANA LÓPEZ Referring Unavailable EDUARDA BETH Primary Care Unavailable APRYL ZAPATA Referring Unavailable EDUARDA BETH Primary Care Unavailable CT ENRIQUEZ Attending Unavailable EDUARDA BETH Referring Unavailable EDUARDA BETH Primary Care Unavailable Medications Current Medications Medication Drug Class(es) Dates Sig (Normalized) Sig (Original) acetaminophen 325 mg / oxyCODONE hydrochloride 5 mg oral tablet (12 sources) Opioid Agonist Start: 05-07-2023 take 1 [...] Active ascorbic acid 500 mg oral tablet (6 sources) Vitamin C take 1 tablet by mouth in the morning ascorbic acid (VITAMIN C) 500 mg tablet Take 1 tablet (500 mg total) by mouth in the morning. Active aspirin 81 mg delayed release oral tablet (9 sources) Platelet Aggregation Inhibitor, Nonsteroidal Anti-inflammatory Drug Start: 08-26-19 take 1 tablet by mouth in the morning aspirin 81 mg Take 1 tablet (81 mg total) by mouth in the morning. 30 tablet 08/25/2024 Active atorvastatin 40 mg oral tablet (15 sources) HMG-CoA Reductase Inhibitor Start: 08-25-19 End: 09-29-19 take 1 tablet by mouth once daily [...] 06/04/2023 Active hydroCHLOROthiazide 50 mg oral tablet (14 sources) Thiazide Diuretic Start: 08-30-2024 End: 09-06-2025 take 1 tablet by mouth once daily hydroCHLOROthiazide (HYDRODiuril) 50 MG tablet Indications: Benign essential HTN (CMS/HCC) Take 1 tablet (50 mg) by mouth Daily 90 tablet 3 09/06/2024 09/06/2025 Active Start: 06-03-2023 End: 08-30-2024 take 1 tablet by mouth once daily hydroCHLOROthiazide (HYDRODiuril) 25 MG tablet Indications: Benign essential HTN (CMS/HCC) TAKE 1 TABLET BY MOUTH ONCE DAILY 90 tablet 3 05/24/2024 08/30/2024 Discontinued (Dose adjustment) losartan potassium 100 mg oral tablet (12 sources) Angiotensin 2 Receptor Ashu Start: 06-04-2023 take 1 tablet by mouth once daily losartan (Cozaar) 100 MG tablet Indications: Benign essential HTN (CMS/HCC) TAKE 1 TABLET BY MOUTH ONCE DAILY 100 tablet 3 10/08/2024 Active take [facility] (COZAAR) 50 mg tablet Take 1 tablet (50 mg total) by mouth in the morning. Active metoprolol tartrate 100 mg oral tablet (12 sources) beta-Adrenergic Ashu Start: 06-07-2024 take 1 [...] 06/04/2023 Active take 2 tablets by mo [facility] in the morning, then take 2 tablets by mouth at bedtime metoprolol tartrate (LOPRESSOR) 50 mg tablet Take 2 tablets (100 mg total) by mouth in the morning and 2 tablets (100 mg total) before bedtime. Active multivit-min/folic/vit K/lyc op (ONE-A-DAY MEN'S MULTIVITAMIN ORAL) (4 sources) multivit-min/fol ic/vit K/lycop (ONE-A-DAY MEN'S MULTIVITAMIN ORAL) Take by mouth in the morning. Active multivit-min/fol ic/vit K/lycop (ONE-A-DAY MEN'S MULTIVITAMIN ORAL) Take by mouth daily. Active spironolactone 50 mg oral tablet (14 sources) Aldosterone Antagonist Start: 10-08-2024 take 1 tablet by mouth once daily spironolactone (Aldactone) 50 MG tablet Indications: Benign essential HTN (CMS/HCC) TAKE 1 TABLET BY MOUTH ONCE DAILY 100 tablet 3 10/08/2024 Active Start: 06-04-2023 End: 08-30-2024 take 1 tablet by mouth once daily spironolactone (Aldactone) 50 MG tablet Indications: Benign essential HTN (CMS/HCC) Take 1 tablet (50 mg) by mouth Daily 100 tablet 3 08/30/2024 Active take 1 tablet by marita th in the morning spironolactone (ALDACTONE) 25 mg tablet Take 1 tablet (25 mg total) by mouth in the morning. Active tiZANidine 4 mg oral tablet (12 sources) Central alpha-2 Adrenergic Agonist take 1 tablet by mouth in the morning, then take 1 tablet by mouth at bedtime tiZANidine (ZANAFLEX) 4 mg tablet Take 1 tablet (4 mg total) by mouth in the morning and 1 tablet (4 mg total) before bedtime. Active turmeric root extract 500 mg capsule (6 sources) take 1 capsule by mouth in the morning turmeric root extract 500 mg capsule Take 1 capsule by mouth in the morning and 1 capsule before bedtime. Active valACYclovir 1000 mg oral tablet (1 source) Herpesvirus Nucleoside Analog DNA Polymerase Inhibitor, Herpes Simplex Virus Nucleoside Analog DNA Polymerase Inhibitor, Herpes Zoster Virus Nucleoside Analog DNA Polymerase Inhibitor Start: 11-18-19 valACYclovir (VALTREX) 1000 mg tablet Take 1 tablet (1,000 mg total) by mouth. 11/17/2024 Active Problems Active Problems Problem Classification Problem Date Documented Date Episodic/Chronic Acute cerebrovascular disease (14 sources) Cerebrovascular accident; Translations: [Cerebral infarction, unspecified] Onset: 08-23-2024 08-30-2024 Chronic Acute cerebrovascular disease (1 source) Acute cerebrovascular disease Onset: 08-23-2024 Congestive heart failure; nonhypertensive (1 source) Unspecified diastolic (congestive) heart failure; Translations: [Unspecified diastolic (congestive) heart failure] Onset: 08-23-2024 Chronic Disorders of lipid metabolism (19 sources) Hypercholesterolemia; Translations: [Pure hypercholesterolemia, unspecified] Onset: 12-05-2022 05-11-2024 Chronic Essential hypertension (19 sources) Benign essential hypertension; Translations: [Essential (primary) hypertension] Onset: 12-05-2022 05-11-2024 Chronic Nonspecific chest pain (2 sources) Chest pain; Translations: [Chest pain, unspecified] 05-11-2024 Episodic Osteoarthritis (7 sources) Unilateral primary osteoarthritis, left knee; Translations: [Unilateral post-traumatic osteoarthritis, left knee] Onset: 02-04-2022 Chronic Other nervous system disorders (2 sources) Expressive dysphasia; Translations: [Aphasia] 08-30-2024 Chronic Other nutritional; endocrine; and metabolic disorders (6 sources) Disorder of carbohydrate metabolism; Translations: [Other disorders of intestinal carbohydrate absorption] Onset: 12-05-2022 12-05-2022 Chronic Other nutritional; endocrine; and metabolic disorders (6 sources) Hypercalcemia; Translations: [Hypercalcemia] Onset: 12-05-2022 12-05-2022 Chronic Spondylosis; intervertebral disc disorders; other back problems (12 sources) Spondylosis without myelopathy or radiculopathy, thoracic [...] Classification Problem Date Documented Da te Episodic/Chronic Malaise and fatigue (1 source) Weakness; Translations: [Weakness] Onset: 08-23-2024 Episodic Mood disorders (6 sources) Mood disorders Onset: 08-23-2024 08-23-2024 Other [...] in LDL [Mass/Vol] 63 mg/dL Normal <130 [facility] Comment on above: Result Comment: LDL <100 mg/dL - Desirable LDL 130-159 mg/dL - Borderline High Risk LDL >160 mg/dL - High Risk Performed By: #### 2 089-1 ####[facility] ([id number])[address] [facility], [address] [place] [address] CBC AND AUTO DIFFon 08-25-19 25 ABSOLUTE BASOPHIL 0.0 X10E9/L Normal 0.0-0.2 [facility] Comment on above: Performed By: #### C BCA, CMP, 42695-6 ####[facility] ([id number])[address] [place] [address]#### 23892-9 ####[facility] ([id number])[address] [facility], [address] [place] [address]19 ABSOLUTE NEUTROPHIL 5.7 X10E9/L Normal 1.5-6.6 [facility] Comment on above: Performed By: #### Nya BCA, CMP, 67969-4 ####[facility] ([id number])[address] [place] [address] 55071#### 62717-8 ####[facility] ([id number])[address], [address] [place] [address] 16146 Basophils/100 WBC (Bld) 0.5 % Normal [facility] Comment on above: Performed By: #### C BCA, CMP, 22140-8 ####[facility] ([id number])[address] [place] [address] 47164#### 21820-6 ####[facility] ([id number])[address] [place] [address]76 Eosinophils (Bld) [#/Vol] 0.4 10*3/uL Normal 0.0-0.4 [facility] Comment on above: Performed By: #### Nya VERAS CMP, 35082-3 ####[facility] ([id number])[address] [place] [address] 74892#### 05236-3 ####[facility] ([id number])[address] [place] [address] 29721 Eosinophils/100 WBC (Bld) 3.8 % Normal [facility] Comment on above: Performed By: #### Nya VERAS CMP, 52645-8 ####[facility] ([id number])[address] [place] [address] 03772#### 12567-4 ####[facility] ([id number])[address] [place] [address] 91453 Erythrocyte distribution width (RBC) [Ratio] 13.6 % Normal 11.5-15.0 [facility] Comment on above: Performed By: #### Nya VERAS CMP, ####[facility] ([id number])[address] [place] [address] 91696#### 48994-3 ####[facility] ([id number])[facility] [address] [place] [address] 08561 Hematocrit (Bld) [Volume fraction] 41.7 % Normal 39-49 [facility] Comment on above: Performed By: #### Nya VERAS CMP, ####[facility] ([id number])[address] [place] [address] 38319#### 23231-4 ####[facility] ([id number])[address], [address], [place] [address] Hemoglobin (Bld) [Mass/Vol] 14.5 g/dL Normal 13.0-17.0 [facility] Comment on above: Performed By: #### Nya VERAS CMP, 75085-1 ####[facility] ([id number])[address] [place] [address] 26706#### 41489-1 ####[facility] ([id number])[address], [address] [place] [address]52 Lymphocytes (Bld) [#/Vol] 2.7 10*3/uL Normal 1.0-3.5 [facility] Comment on above: Performed By: #### Nya VERAS [facility], 38244-4 ####[facility] ([id number])[address] [place] [address] 26915#### 49433-0 ####[facility] ([id number])[address], [address] [place] [address] 05984 Lymphocytes/100 WBC (Bld) 28.1 % Normal [facility] Comment on above: Performed By: #### Nya VERAS CMP, ####[facility] ([id number])[address] [place] [address] 80009#### 26102-6 ####[facility] ([id number])[address], [address], [place] [address] MCH (RBC) [Entitic mass] 29.7 pg Normal 27-34 [facility] Comment on above: Performed By: #### Nya VERAS, CMP, 10245-0 ####[facility] ([id number])[address] [place] [address] 11591#### 40938-9 ####[facility] ([id number])[address], [address], [place] [address] MCHC (RBC) [Mass/Vol] 34.7 g/dL Normal 32-36 [facility] Comment on above: Performed By: #### Nya VERAS, CMP, 60318-5 ####[facility] ([id number])[address] [place] [address] 71225#### 91010-4 ####[facility] ([id number])[address], [address] [address] MCV (RBC) [Entitic vol] 86 fL Normal 80-100 [facility] Comment on above: Performed By: #### C RITO, CMP, 45641-7 ####[facility] ([id number])[address] [place] [address] 38157#### 69390-9 ####[facility] ([id number])[address], [address], [place] [address] Monocytes (Bld) [#/Vol] 0.8 10*3/uL Normal 0-0.9 [facility] Comment on above: Performed By: #### Nya VERAS, CMP, 45126-4 ####[facility] ([id number])[address] [place] [address] 28301#### 24009-8 ####[facility] ([id number])[address], [address], [place] [address] Monocytes/100 WBC (Bld) 8.5 % Normal [facility] Comment on above: Performed By: #### Nya VERAS, CMP, 14826-6 ####[facility] ([id number])[address] [place] [address] 80735#### 21193-2 ####[facility] ([id number])[address], [address] [address] Neutrophils/100 WBC (Bld) 59.1 % Normal [facility] Comment on above: Performed By: #### Nya VERAS, CMP, 62042-8 ####[facility] ([id number])[address] [place] [address] 24764#### 45053-1 ####[facility] ([id number])[address], [address], [place] [address] Platelet mean volume (Bld) [Entitic vol] 8.5 fL Normal 7-12 [facility] Comment on above: Performed By: #### Nya VERAS, CMP, 17563-3 ####[facility] ([id number])[address] [place] [address] 47821#### 30884-2 ####[facility] ([id number])[address] [address] [address] Platelets (Bld) [#/Vol] 211 10*3/uL Normal 150-450 [facility] Comment on above: Performed By: #### Nya VERAS, CMP, 83654-1 ####[facility] ([id number])[address] [place] [address] 13457#### 16822-6 ####[facility] ([id number])[address], [address] [address] RBC COUNT 4.86 X10E12/L Normal 4.10-5.70 [facility] Comment on above: Performed By: #### Nya VERAS, CMP, ####[facility] ([id number])[address] [place] [address] 47216#### 91703-1 ####[facility] ([id number])[address], [address] [address] WBC (Bld) [#/Vol] 9.7 10*3/uL Normal 4.0-11.0 [facility] Comment on above: Performed By: #### C BCA, CMP, 66370-1 ####[facility] ([id number])[address] [place] [address] 38850#### 84700-4 ####[facility] ([id number])[address], [address] [address] COMPREHENSIVE METABOLIC PANE Alexey 08-24-2024 Albumin [Mass/Vol] 4.3 g/dL Normal 3.2-5.3 [facility] Comment on above: Performed By: #### C BCA, CMP, 10392-6 ####[facility] ([id number])[address] [place] [address] 35549#### 66931-4 ####[facility] ([id number])[address], [address] [address] ALP [Catalytic activity/Vol] 76 U/L Normal 39-130 [facility] Comment on above: Performed By: #### C BCA, CMP, 93675-1 ####[facility] ([id number])[address] [place] [address] 45483#### 95153-2 ####[facility] ([id number])[address], [address], [place] [address] ALT [Catalytic activity/Vol] 47 U/L High 0-40 [facility] Comment on above: Performed By: #### C BCA, CMP, 36061-5 ####[facility] ([id number])[address] [place] [address] 77560#### 64615-7 ####[facility] ([id number])[address], [address] [address] Anion gap [Moles/Vol] 6 mmol/L Normal 5-15 [facility] Comment on above: Performed By: #### C BCA, CMP, 74212-7 ####[facility] ([id number])[address] [place] [address] 29763#### 52772-3 ####[facility] ([id number])[address], [address] [address] AST [Catalytic activity/Vol] 26 U/L Normal 0-41 [facility] Comment on above: Performed By: #### C BCA, CMP, 62541-6 ####[facility] ([id number])[address] [place] [address] 87703#### 08912-7 ####[facility] ([id number])[address], [address] [address] Bilirubin [Mass/Vol] 0.9 mg/dL Normal 0.3-1.2 [facility] Comment on above: Performed By: #### C BCA, CMP, 77767-0 ####[facility] ([id number])[address] [place] [address] 26435#### 04113-7 ####[facility] ([id number])[address], [address] [address] Calcium [Mass/Vol] 9.5 mg/dL Normal 8.5-10.5 [facility] Comment on above: Performed By: #### C BCA, CMP, ####[facility] ([id number])[address] [place] [address] 28115#### 31317-3 ####[facility] ([id number])[address], [address], [place] [address] Chloride [Moles/Vol] 104 mmol/L Normal 98-109 [facility] Comment on above: Performed By: #### C BCA, CMP, 03649-0 ####[facility] ([id number])[address] [place] [address] 37328#### 12436-8 ####[facility] ([id number])[address], [address] [address] CO2 [Moles/Vol] 28 mmol/L Normal 22-32 [facility] Comment on above: Performed By: #### C RITO [facility], 76439-5 ####[facility] ([id number])[address] [place] [address] 53311#### 79059-1 ####[facility] ([id number])[address], [address], [place] [address] Creatinine [Mass/Vol] 1.17 mg/dL Normal 0.70-1.20 [facility] Comment on above: Result Comment: METH OD TRACEABLE TO IDMS STANDARD Performed By: #### C RITO [facility], 04792-5 ####[facility] ([id number])[address] [place] [address] 24774#### 80774-3 ####[facility] ([id number])[address] [address] GFR/1.73 sq M.predicted among non-blacks MDRD (S/P/Bld) [Vol rate/Area] 72 mL/min/{1.73_m2} Normal >59 [facility] Comment on above: Result Comment: Reported eGFR is based on the CKD-EPI 2020 equation that does not use a race coefficient. Performed By: #### C RITO [facility], 11711-2 ####[facility] ([id number])[address] [place] [address] 45666#### 12852-8 ####[facility] ([id number])[address], [address] [address] Glucose [Mass/Vol] 100 mg/dL High 65-99 [facility] Comment on above: Performed By: #### C BCA, CMP, ####[facility] ([id number])[address] [place] [address] 64052#### 26535-1 ####[facility] ([id number])[address], [address], [place] [address] Potassium [Moles/Vol] 3.7 mmol/L Normal 3.5-5.0 [facility] Comment on above: Performed By: #### C BCA, [facility], ####[facility] ([id number])[address] [place] [address] 64042#### 49560-5 ####[facility] ([id number])[address], [address], [place] [address] Protein [Mass/Vol] 6.5 g/dL Normal 6.0-8.0 [facility] Comment on above: Performed By: #### C BCA, [facility], ####[facility] ([id number])[address] [place] [address] 84376#### 08815-9 ####[facility] ([id number])[address], [address], [place] [address] Sodium [Moles/Vol] 138 mmol/L Normal 134-146 [facility] Comment on above: Performed By: #### C BCA, CMP, ####[facility] ([id number])[address] [place] [address] 85302#### 41533-6 ####[facility] ([id number])[address], [address], [place] [address] Urea nitrogen [Mass/Vol] 24 mg/dL High 5-23 [facility] Comment on above: Performed By: #### Nya VERAS, CMP, 61647-9 ####[facility] ([id number])[address] [place] [address] 37978#### 01536-8 ####[facility] ([id number])[address], [address] [place] [address] Lipid 1996 panelon 5 Cholesterol [Mass/Vol] 181 mg/dL Normal 150-200 [facility] Comment on above: Performed By: #### C BCA, CMP, 00143-9 ####[facility] ([id number])[address] [place] [address] 17542#### 89319-7 ####[facility] ([id number])[address], [address] [place] [address] Cholesterol in HDL [Mass/Vol] 35 mg/dL Low >39 [facility] Comment on above: Result Comment: HDL <40 mg/dL - High Risk HDL > or = 40mg/dL- Desirable HDL >60 mg/dL - Negative Risk Performed By: #### Nya BCA, [facility], 84771-2 ####[facility] ([id number])[address] [place] [address] 56774#### 65577-1 ####[facility] ([id number])[address], [address] [place] [address] 99[address] Cholesterol in LDL [Mass/Vol] 83 mg/dL Normal <130 [facility] Comment on above: Result Comment: LDL <100 mg/dL - Desirable LDL >160 mg/dL - High Risk Performed By: #### C BCA, CMP, 07428-8 ####[facility] ([id number])[address] [place] [address] 22920#### 53010-3 ####[facility] ([id number])[address], [address] [address] Cholesterol in VLDL [Mass/Vol] 63 mg/dL High 0-30 [facility] Comment on above: Performed By: #### C BCA, CMP, 66958-8 ####[facility] ([id number])[address] [place] [address] 54875#### 22698-6 ####[facility] ([id number])[address], [address] [place] [address] CHOLESTEROL:HDL 5.2 High 1.0-5.0 [facility] Comment on above: Performed By: #### C BCA, CMP, ####[facility] ([id number])[address] [place] [address] 32937#### 17934-2 ####[facility] ([id number])[address], [address] [address] Triglyceride [Mass/Vol] 316 mg/dL High 27-150 [facility] Comment on above: Performed By: #### C BCA, CMP, ####[facility] ([id number])[address] [place] [address] 10693#### 84720-5 ####[facility] ([id number])[address], [address] [place] [address] MAGNESIUMon 08-24-2024 Magnesium [Mass/Vol] 2.3 mg/dL Normal 1.8-2.6 [facility] Comment on above: Performed By: #### 1 9123-9 ####[facility] ([id number])[address] [place] [address] Magnesium [Mass/Vol] 1.8 mg/dL Normal 1.8-2.6 [facility] Comment on above: Performed By: #### C RITO, [facility], 20086-7 ####[facility] ([id number])[address] [place] [address]#### [id number] ####[facility] ([id number])[address] [facility], [address] [place] [id number] MR BRAIN WO CONTon MR BRAIN WO [...] Baltazar Olivera on 08/24/2024 8:34 AM Normal [facility] [facility] POTASSIUMon 08-24-2024 Potassium [Moles/Vol] 3.8 mmol/L Normal 3.5-5.0 [facility] Comment on above: Performed By: #### 2 823-3 ####[facility] ([id number])[address] [place] [address] CBC AND AUTO DIFFon 08-24-19 25 ABSOLUTE BASOPHIL 0.1 X10E9/L Normal 0.0-0.2 [facility] Comment on above: Performed By: #### C BCA, CMP, PINR, [id number], THYR #### [facility] ([id number]) [address] [place] [address] 87983 #### HA1C #### [facility] ([id number]) [address] [facility], [address] [place] [address] ABSOLUTE NEUTROPHIL 7.5 X10E9/L High 1.5-6.6 [facility] Comment on above: Performed By: #### C BCA, CMP, PINR, 93173-9, THYR #### [facility] ([id number]) [address] [place] [address] 67282 #### HA1C #### [facility] ([id number]) [address] [facility], [address] [place] [address] Basophils/100 WBC (Bld) 0.4 % Normal [facility] Comment on above: Performed By: #### C BCA, CMP, PINR, 34504-4, THYR #### [facility] ([id number]) [address] [place] [address] 78514 #### HA1C #### [facility] ([id number]) [address] [facility], [address] [place] [address] Eosinophils (Bld) [#/Vol] 0.4 10*3/uL Normal 0.0-0.4 [facility] Comment on above: Performed By: #### C BCA, CMP, PINR, [id number], THYR #### [facility] ([id number]) [address] [place] [address] 31016 #### HA1C #### [facility] ([id number]) [address], [address] [place] [address] Eosinophils/100 WBC (Bld) 3.0 % Normal [facility] Comment on above: Performed By: #### C BCA, CMP, PINR, 47275-1, THYR #### [facility] ([id number]) [address] [place] [address] 76366 #### HA1C #### [facility] ([id number]) [address], [address] [place] [address] Erythrocyte distribution width (RBC) [Ratio] 13.6 % Normal 11.5-15.0 [facility] Comment on above: Performed By: #### C BCA, CMP, PINR, 29574-0, THYR #### [facility] ([id number]) [address] [place] [address] 36476 #### HA1C #### [facility] ([id number]) [address], [address] [place] [address] Hematocrit (Bld) [Volume fraction] 43.1 % Normal 39-49 [facility] Comment on above: Performed By: #### C BCA, CMP, PINR, 64224-5, THYR #### [facility] ([id number]) [address] [place] [address] 42814 #### HA1C #### [facility] ([id number]) [address], [address] [place] [address] Hemoglobin (Bld) [Mass/Vol] 14.9 g/dL Normal 13.0-17.0 [facility] Comment on above: Performed By: #### C BCA, CMP, PINR, 02447-5, THYR #### [facility] ([id number]) [address] [place] [address] 18165 #### HA1C #### [facility] ([id number]) [address], [address] [place] [address] Lymphocytes (Bld) [#/Vol] 3.1 10*3/uL Normal 1.0-3.5 [facility] Comment on above: Performed By: #### C BCA, CMP, PINR, 71752-0, THYR #### [facility] ([id number]) [address] [place] [address] 46366 #### HA1C #### [facility] ([id number]) [address], [address] [place] [address] Lymphocytes/100 WBC (Bld) 25.7 % Normal [facility] Comment on above: Performed By: #### C BCA, CMP, PINR, 87886-2, THYR #### [facility] ([id number]) [address] [place] [address] 61171 #### HA1C #### [facility] ([id number]) [address], [address] [place] [address] MCH (RBC) [Entitic mass] 29.6 pg Normal 27-34 [facility] Comment on above: Performed By: #### C BCA, CMP, PINR, 47691-5, THYR #### [facility] ([id number]) [address] [place] [address] 83855 #### HA1C #### [facility] ([id number]) [address], [address] [place] [address] MCHC (RBC) [Mass/Vol] 34.5 g/dL Normal 32-36 [facility] Comment on above: Performed By: #### C BCA, CMP, PINR, 44456-3, THYR #### [facility] ([id number]) [address] [place] [address] 99562 #### HA1C #### [facility] ([id number]) [address], [address] [place] [address] MCV (RBC) [Entitic vol] 86 fL Normal 80-100 [facility] Comment on above: Performed By: #### C BCA, CMP, PINR, 10901-2, THYR #### [facility] ([id number]) [address] [place] [address] 10629 #### HA1C #### [facility] ([id number]) [address], [address] [place] [address] Monocytes (Bld) [#/Vol] 1.1 10*3/uL High 0-0.9 [facility] Comment on above: Performed By: #### C BCA, CMP, PINR, 45935-7, THYR #### [facility] ([id number]) [address] [place] [address] 49944 #### HA1C #### [facility] ([id number]) [address], [address] [place] [address] Monocytes/100 WBC (Bld) 8.8 % Normal [facility] Comment on above: Performed By: #### C BCA, CMP, PINR, 74452-7, THYR #### [facility] ([id number]) [address] [place] [address] 80608 #### HA1C #### [facility] ([id number]) [address], [address] [place] [address] Neutrophils/100 WBC (Bld) 62.1 % Normal [facility] Comment on above: Performed By: #### C BCA, CMP, PINR, 20397-2, THYR #### [facility] ([id number]) [address] [place] [address] 11777 #### HA1C #### [facility] ([id number]) [address] [facility], [address] [place] [address] Platelet mean volume (Bld) [Entitic vol] 8.6 fL Normal 7-12 [facility] Comment on above: Performed By: #### C BCA, CMP, PINR, 72424-1, THYR #### [facility] ([id number]) [address] [place] [address] 85984 #### HA1C #### [facility] ([id number]) [address] [facility], [address] [place] [address] Platelets (Bld) [#/Vol] 230 10*3/uL Normal 150-450 [facility] Comment on above: Performed By: #### C BCA, CMP, PINR, 87218-6, THYR #### [facility] ([id number]) [address] [place] [address] 86034 #### HA1C #### [facility] ([id number]) [address] [facility], [address] [place] [address] RBC COUNT 5.03 X10E12/L Normal 4.10-5.70 [facility] Comment on above: Performed By: #### C BCA, CMP, PINR,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 Humiliation, Afraid, Rape, and Kick questionnaire Fear of Current or Ex-Partner: No Emotionally Abused: No Physically Abused: No Sexually Abused: No Housing Instability: Low Risk (08/26/2024) Received from [facility] Housing Stability Vital Sign Unable to Pay for Housing in the Last Year: No Number of Times Moved in the Last Year: 1 Homeless in the Last Year: No Review of Systems Review of Systems Constitutional: Negative. HENT: Negative. Eyes: Negative. Cardiovascular: Negative. Respiratory: Negative. Endocrine: Negative. Hematologic/Lymphatic: Negative. Skin: Negative. Musculoskeletal: Negative. Gastrointestinal: Negative. Genitourinary: Negative. Neurological: Negative. Psychiatric/Behavioral: Negative. Allergic/Immunologic: Negative. Vascular: Negative. CARDIOVASCULAR: [...] mood, memory and judgement. VITAL SIGNS: BP 124/70 Pulse 63 Ht 175.3 cm (5' 9 ) Wt 105.7 kg (233 lb) SpO2 97% BMI 34.41 kg/m Orders Placed or Reconciled This Encounter Medications valACYclovir (VALTREX) 1000 mg tablet Sig: Take 1 tablet (1,000 mg total) by mouth. There are no discontinued medications. IMPRESSIONS/PLAN 1. Benign essential HTN 2. Cerebrovascular accident (CVA), unspecified mechanism (CMS-HCC) 3. Hypercholesteremia PLAN BP and HR are well controlled on HCTZ, losartan, spironolactone, and lopressor. He appears euvolemic. Continue cardiac medications. LDL from 2 months prior was 63 and is in therapeutic range. Echo showed hyperdynamic heart function, no cause for CVA Monitor did not show atrial fib/flutter We discussed a smart watch for monitoring the heart long-term vs ILR. He has opted to get a watch. Recommend follow up in 6 months. TODAYS ORDERS No orders of the defined types were placed in this encounter. FOLLOW UP No follow-ups on file. PCP: Eduarda Beth MD Referring Physician: Eduarda Beth MD [address] [place] [id number] AMY Gutierrez 12/27/24 0945 AMY Gutierrez 12/27/24 0948 documented in this encounter [facility] 12-27-2024 Instructions AMY Gutierrez - 12/27/2024 9:30 AM EDT BP and HR are well controlled. Cholesterol is in good range Your echo showed good heart function Your monitor did not show any cause for stroke Continue cardiac medications. Recommend follow up in 6 months documented in this encounter [facility] 12-23-2024 Miscellaneous Notes Phoned pt to remind of appointment scheduled on 12/27/2024, reminded patient to bring current list of medications, photo ID, insurance card or cards,and any copays that will be due at that time. documented in this encounter [facility] 12-23-2024 Telephone encounter Note Phoned pt to remind of appointment scheduled on 12/27/2024, reminded patient to bring current list of medications, photo ID, insurance card or cards,and any copays that will be due at that time. [facility] 11-16-2024 Telephone encounter Note Patient is requesting valtrex 1 gram tab 1 TID for 14 days to [facility] in [place]. He wants to get #42 due to his insurance. Thank you. [facility] 11-16-2024 Miscellaneous Notes Patient is requesting valtrex 1 gram tab 1 TID for 14 days to [facility] in [place]. He wants to get #42 due to his insurance. Thank you. documented in this encounter [facility] 10-14-2024 Miscellaneous Notes Patient called and cancelled [...] as such. Called patient. Unable to leave VM and vm box is not set up. Will try again later. documented in this encounter [facility] 10-14-2024 Telephone encounter Note Patient called and cancelled 10/19/[address] Storm stating that they felt that they did not need appointment. [facility] 10-14-2024 Telephone encounter Note Patients monitor was [...] up with PCP and document as such. [facility] 10-14-2024 Telephone encounter Note Called patient. Unable to leave VM and vm box is not set up. Will try again later. [facility] 09-28-2024 History of Present illness Narrative Jose Forde Date of visit: 09/28/2024 Date of : [...] Chief Complaint Patient presents with New Patient HAY CHOPPER ALE PEDERSEN, LABS AT [facility] EM 3-12 FOR 30 DAYS SCHED W/ PT [...] out . Rods placed again- performed at [facility] 2010 KNEE SURGERY Left 1980 ACL repair at [facility] Family History Problem Relation Age of [...] Resource Strain: Low Risk (08/26/2024) Received from [facility] Overall Financial Resource Strain (CARDIA) Difficulty of Paying Living Expenses: Not hard at all Food Insecurity: No Food Insecurity (09/28/2024) Hunger Screening Food Insecurity - Worry: Never True Food Insecurity - Inability: Never True Transportation Needs: No Transportation Needs (08/26/2024) Received from [facility] PRAPARE - Transportation Lack of Transportation (Medical): No Lack of Transportation (Non-Medical): No Physical Activity: Insufficiently Active (08/26/2024) Received from [facility] Exercise Vital Sign Days of Exercise per Week: 2 days Minutes of Exercise per Session: 60 min Stress: No Stress Concern Present (08/26/2024) Received from [facility] [place] [employer] - Occupational Stress Questionnaire Feeling of Stress : Only a little Social Connections: Moderately Integrated (08/26/2024) Received from [facility] Social Connection and Isolation Panel [NHANES] Frequency of Communication with Friends and Family: Once a week Frequency of Social Gatherings with Friends and Family: Three times a week Attends Anglican Services: Never Active Member of Clubs or Organizations: Yes Attends Club or Organization Meetings: More than 4 times per year Marital Status: Interpersonal Safety: Not At Risk (08/23/2024) Humiliation, Afraid, Rape, and Kick questionnaire Fear of Current or Ex-Partner: No Emotionally Abused: No Physically Abused: No Sexually Abused: No Housing Instability: Low Risk (08/26/2024) Received from [facility] Housing Stability Vital Sign Unable to Pay [...] mg tablet Reorder IMPRESSIONS/PLAN 1. [facility] - [facility] [place], [place] - LDL cholesterol, direct; Future 2. Benign essential HTN - [facility] [place] [place] - LDL cholesterol, direct; Future 3. Cerebrovascular accident (CVA), unspecified mechanism ([facility]) Echocardiogram results reviewed with patient. With hyperdynamic [...] Eduarda Beth MD Referring Physician: Ana López, HAND BRIM IRONER-TRIPLE VALVE TESTER [address] [place] [address] documented in this encounter [facility] 09-27-2024 Miscellaneous Notes BillettoHART MESSAGE REMINDER SENT TO PT TO REMIND OF PPC APPT. documented in this encounter [facility] 09-27-2024 Telephone encounter Note BillettoHARComeet MESSAGE REMINDER SENT TO PT TO REMIND OF PPC APPT. [facility] 08-30-2024 History of Present illness Narrative Images from the original note were not included. Jose Forde is a 59 y.o. male presents with [...] Beth MD Hospital Information ED, Hospital or [facility] Facility Discharge? Hospital Patient has been contacted within two business days of discharge Yes Diagnosis Cerebrovascular Accident Discharge Date 08/25/24 Discharged To: Home Setting Discharge Hospital [facility] Engagement Call Start Time 1258 Admission Date [...] Event Monitor is scheduled for 09/01/24 at [facility]. Call End Time 1410 History of [...] under the care of a neurologist and foot tender, with upcoming appointments scheduled for 10/02/2024 [...] Depression: Not at risk (08/23/2024) Received from [facility] PHQ-2 Total Score: 0 REVIEW OF SYMPTOMS: [...] in 6 months. documented in this encounter [facility] 08-25-2024 Telephone encounter Note Pt is scheduled on the for his holter monitor at [facility] and wonders if there is anyway you can have it moved up. His hospital follow up is scheduled with you on the [facility] 08-25-2024 Miscellaneous Notes Pt is scheduled on the for his holter monitor at [facility] and wonders if there is anyway you can have it moved up. His hospital follow up is scheduled with you on the documented in this encounter [facility] 05-11-2024 History of Present illness Narrative Images [...] with cardiac ischemia documented in this encounter [facility] 08-01-2022 Note CONSULTATION CONSULTATION DATE: 08/01/2022 HISTORY [...] indicated. Patient agrees with this plan. [facility] 05-02-2022 Note CONSULTATION CONSULTATION DATE: 05/02/2022 HISTORY OF PRESENT ILLNESS: This is a 56-year-old gentleman returning to the clinic for a three month appointment for medication maintenance and refills. Patient has been a senior living patient of the [facility] and has [...] indicated. Patient agrees with this plan. [facility] 01-31-2022 Note PROCEDURE: XR KNEE L T [...] by: THANG KOROMA Date: 2022-01-31 18:30 [facility] 01-31-2022 Note CONSULTATION CONSULTATION DATE: 01/31/2022 HISTORY [...] three months' time unless otherwise indicated. [facility] 11-08-2021 Note CONSULTATION CONSULTATION DATE: 11/08/2021 This [...] patient agrees with the plan of care. [facility] Signed and Approved by: NICKOLAS OSEI . 11/12/2021 15:06:00 [facility] Evaluation note Diagnosis Routine general medical examination at a [facility] care facility- Primary Benign essential HTN (CMS/HCC) Hypercholesteremia (CMS/HCC) Pure hypercholesterolemia Chest pain, unspecified type [facility] Diagnosis Hypercholesteremia (CMS/HCC)- Primary Pure hypercholesterolemia Benign essential HTN (CMS/HCC) Post-traumatic osteoarthritis of left knee Cerebrovascular accident (CVA), unspecified mechanism (CMS/HCC) Expressive aphasia documented in this encounter [facility]* Diagnosis Cerebrovascular accident (CVA), unspecified mechanism (CMS-HCC)- Primary Hypercholesteremia Pure hypercholesterolemia Benign essential HTN [facility] Benign essential HTN- Primary Cerebrovascular accident (CVA), unspecified mechanism (CMS-HCC) Hypercholesteremia Pure hypercholesterolemia [facility] filedocumented in this encounter [facility] filedocumented in this encounter [facility] on filedocumented in this encounter [facility] on filedocumented in this encounter [facility] filedocumented in this encounter [facility] Summary Purpose Family History No Family History Records FoundNo Family History Records FoundNo Family History Records Found Advance Directives No Advanced Directives Records Found Date Activated Date Inactivated Comments 08/23/2024 7:40 PM 08/24/2024 6:05 PM Additional Source Comments (unrecognized sect ion and content) No Status Records FoundNo Status Records FoundNo Status Records Found INFORMATION SOURCE (unrecogn ized section and content) DATE CREATED AUTHOR 11/02/2022 [facility] pital DATE CREATED AUTHOR AUTHOR'S ORGANIZ ATION 09/01/2024 [facility] EPIC DATE CREATED AUTHOR AUTHOR'S ORGANIZ ATION 12/30/2024 [facility] Reason for Visit (unrecogniz ed section and content) Reason Comments Annual Exam Reason Comments Hospital Follow-up Reason Comments New Patient HAY CHOPPER IP MARIANA ECHO, LABS AT [facility] EM 3-12 FOR 30 DAYS SCHED W/ PT Specialty Diagnoses / Procedures Referred By Tabatha t Referred To Contact Cardiology Diagnoses Hypercholesteremia Benign essential HTN Diastolic congestive heart failure, NYHA class 1, unspecified congestive heart failure chronicity (CMS-HCC) Ana López, HAND BRIM IRONER-TRIPLE VALVE TESTER [address] [place] [address] Phone: tel: fax: Cardiology, [facility] [address] [place] [address] Phone: tel: fax: Referral ID Status Reason Start Date Expiration Date Visits Requested Visits Authorized [id number] Pending Review Specialty Services Required 08/24/2024 08/24/2025 1 1 Reason Onset Date Comments Cancellation 10/14/2024 Reason Comments Follow-up EST PT F/U 3 MS L/S BD SCHED W/PT Care Teams (unrecognized sec tion and content) Pin Sorter And Bagger Relationship Specialty Start Date End Date Eduarda Beth MD [address] [facility] [place] [address] PCP - General Family Medicine 10/29/22 Pin Sorter And Bagger Relationship Specialty Start Date End Date Eduarda Beth MD [address] [facility] [place] [address] PCP - General Family Medicine 10/29/22 Pin Sorter And Bagger Relationship Specialty Start Date End Date Eduarda Beth MD [address] [facility] [place] [address] PCP - General Family Medicine 10/29/22 Pin Sorter And Bagger Relationship Specialty Start Date End Date Eduarda Beth MD [address] [facility] [place] [address] PCP - General Family Medicine 08/25/24 Pin Sorter And Bagger Relationship Specialty Start Date End Date Eduarda Beth MD [address] [facility] [place] [address] PCP - General Family Medicine 08/25/24 Pin Sorter And Bagger Relationship Specialty Start Date End Date Eduarda Beth MD [address] [facility] [place] [place] [address] PCP - General Family Medicine 08/25/24 Pin Sorter And Bagger Relationship Specialty Start Date End Date Eduarda Beth MD [address] [facility] [place] [address] PCP - General [facility] 08/25/24 Pin Sorter And Bagger Relationship Specialty Start Date End Date Eduarda Beth MD [address] [facility] [place] [address] PCP - General [facility] 10/29/22 Pin Sorter And Bagger Relationship Specialty Start Date End Date Eduarda Beth MD [address] [place] [address] PCP - General Family Medicine 08/25/24 FOR [...] BE BASED ON THE PRIMARY CLINICAL RECORDS. [employer] ([email or web address]) [facility]. provides no warranty or guarantee of the accuracy or completeness of information in this document.
--- NOTE | 2025-02-03 13:14 | PM.CN ---
Consult Note: HPI Data of Consult Patient: known to practice within the last 3 years Requesting Physician: Poly Kurtz NP Primary Care Provider: RICO MCDONNELL Consult Narrative Reason for consult: f/u Narrative: Jose Forde a pleasant 59 year old male presents for evaluation and management of chronic thoracic back pain post surgical repair. Patient has been doing well on current medication regimen, noticing improvement in pain and function, no side effects from medications. Pain today 4/10 pressure worse with activity, improved with rest. Patient has been able to continue to do housework, golf, ride in the car for long periods of time, and engage in social activities, improved sleep as his pain is well controlled with his medications and HEP. cc:: CC: Poly Kurtz NP Review of Systems ROS Status of ROS 10 or more systems reviewed and unremarkable except as noted in history and below Musculoskeletal Reports: back pain Meds Home Medications and Allergies Home Medications ?Medication ?Instructions ?Recorded ?Confirmed ?Type atorvastatin 10 mg tablet (Lipitor) 10 mg PO DAILY 02/20/23 02/20/23 History hydrochlorothiazide 25 mg tablet 25 mg PO DAILY 02/20/23 02/20/23 History losartan 100 mg tablet 100 mg PO DAILY 02/20/23 02/20/23 History metoprolol tartrate 100 mg tablet 100 mg PO BID 02/20/23 02/20/23 History (Lopressor) spironolactone 25 mg tablet 25 mg PO DAILY 02/20/23 02/20/23 History (Aldactone) tizanidine 4 mg tablet 8 mg (2 x 4 mg) PO DAILY PRN 11/05/23 Rx muscle spasticity #180 tabs baclofen 10 mg tablet 10 mg PO TID 05/12/24 05/12/24 History tizanidine 4 mg tablet 4 mg PO BID PRN muscle spasticity 05/12/24 Rx #60 tabs tizanidine 4 mg tablet 8 mg (2 x 4 mg) PO DAILY PRN 08/12/24 Rx muscle spasticity #60 tabs naloxone 4 mg/actuation nasal 4 mg intranasal Q2M PRN opioid 10/01/24 Rx spray (Narcan) overdose #2 ea oxycodone-acetaminophen 5 mg-325 1 tab PO DAILY PRN pain #30 tabs 11/04/24 Rx mg tablet (Percocet) tizanidine 4 mg tablet 8 mg (2 x 4 mg) PO DAILY PRN 11/04/24 Rx muscle spasticity #60 tabs oxycodone-acetaminophen 5 mg-325 1 tab PO DAILY PRN pain #30 tabs 12/06/24 Rx mg tablet (Percocet) oxycodone-acetaminophen 5 mg-325 1 tab PO DAILY PRN pain #30 tabs 01/04/25 Rx mg tablet (Percocet) Allergies Allergy/AdvReac Type Severity Reaction Status Date / Time No Known Drug Allergies Allergy Verified 02/20/23 12:36 Exam Constitutional Documenting provider has reviewed patient's vital signs: yes Common normals: no apparent distress, oriented x3, healthy appearing, alert and well nourished General appearance: cooperative Nutritional appearance: overweight HENMT Common normals: normocephalic, hearing grossly normal bilaterally and moist oral mucous membranes Head and scalp: normocephalic Eye Common normals: PERRL Pupil: PERRL Neck & C-Spine Common normals: full ROM General: normal visual inspection Chest Common normals: inspection of chest normal Respiratory Common normals: normal respiratory effort, no retractions and no use of accessory muscles Back & Pelvis Thoracic spine/upper back: ROM limited, pain with ROM, thoracic spinal tenderness and paraspinal muscle tenderness Lumbar spine/lower back: normal to inspection, lumbar ROM normal, paraspinal muscle spasm and straight leg raise negative bilaterally Extremity Common normals: normal to inspection, full ROM, no joint enlargement, no calf tenderness and no pedal edema Neuro Common normals: oriented x3, CN's II-XII intact bilaterally, moves all extremities, no focal motor deficits, no sensory deficits noted and deep tendon reflexes 2+ bilaterally Sensorium/orientation: alert Motor exam: strength 5/5 throughout and no movement abnormalities noted Psych Common normals: mental status grossly normal, thought process normal, cooperative, affect normal, speech normal and activity/motor behavior normal Speech: normal speech Thought process: normal thought process Assessment and Plan Assessment and Plan (1) Thoracic spondylosis: (2) Chronic prescription opiate use: Assessment and Plan: Medications help patient to complete ADLs, care for self, work I have refilled the patient's opioid prescriptions at the above noted dose and schedule.? I feel these medications are improving the patient's quality of life and allow them to tolerate activities of daily living as well as participate in recreational activity.? The patient does not report intolerable side effects. The patient is NOT opioid naive and non-pharmacologic and non-opioid treatment has failed to significantly relieve the patient's pain and improve functionality. The patient has a diagnosis that is related to a somatic or visceral pain etiology. ? ?? I reviewed with the patient the potential risks and side effects with the use of?opioid medications including but not limited to respiratory depression,? sedation, and even . I verified the patient has access to naloxone should?these effects occur. I advised the patient to avoid the use of any other? sedation substances including alcohol, THC, and benzodiazepines while?taking opioid medications due to the risk of compounding side effects and? detrimental outcomes. I reviewed the PARACHUTIST/COMBATANT DIVER QUALIFIED, pain treatment agreement, urine?drug screen, and opioid start talking forms. The patient was advised to let? their family know they had Naloxone in case they would need to administer?the medication.? ?? A drug screen was completed within the last year, and no aberrancies were noted regarding their use of controlled substances. The patient understands they are subject to the terms and conditions of the pain contract that they have signed. ? ?? I have checked an [place] report on this patient today and there are no aberrancies noted in the prescribing history.? (3) Muscle spasm: Plan continue percocet 5-325mg QD PRN moderate to severe pain continue tizanidine 8mg HS, can trial 2-4mg daytime PRN for pain/sapsms encouraged prn tylenol use cannot take NSAIDs due to HTN, does take tumeric 500mg BID continue stretching to assist in myofascial pain/spasms f/u 3 months for medication management, sooner if needed
== END 2025-02-03 12:49 | disposition home or self-care (01) ==
LOC: PM 12:49
PROVIDERS: PCP Family Medicine; Visit Provider Nurse Practitioner
DX: M47.814 Spondylosis without myelopathy or radiculopathy, thoracic region (principal); Z79.891 Long term (current) use of opiate analgesic; M62.838 Other muscle spasm
CPT/HCPCS: G0463

== ENCOUNTER 2025-05-05 12:48 | Outpatient (OUT) | payer BC, SELFPAY ==
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
--- OUTSIDE RECORDS SUMMARY | 2025-05-05 12:51 | XMS_ITS | Clinical Summary ---
Author Organization [email or web address] Address [id number] [address] [place] [address] Care Team Providers Care Hearing Care Practitioner Name Role Phone Eduarda Beth MD Primary Care Provider [phone] Allergies No known active allergies Medications MedicationSigDispense QuantityRefillsLast FilledStart DateEnd DateStatus hydroCHLOROthiazide (HYDRODIURIL) 50 mg tablet Take 1 tablet (50 mg total) by mouth daily.Active losartan (COZAAR) 100 mg tablet Take 1 tablet (100 mg total) by mouth in the morning.Active spironolactone (ALDACTONE) 50 mg tablet Take 1 tablet (50 mg total) by mouth in the morning.Active metoprolol tartrate (LOPRESSOR) 50 mg tablet Take 2 tablets (100 mg total) by mouth in the morning and 2 tablets (100 mg total) before bedtime.Active oxyCODONE-acetaminophen (PERCOCET) 5-325 mg per tablet Take 1 tablet by mouth every 6 (six) hours as needed for pain.Active tiZANidine (ZANAFLEX) 4 mg tablet Take 1 tablet (4 mg total) by mouth in the morning and 1 tablet (4 mg total) before bedtime.Active ascorbic acid (VITAMIN C) 500 mg tablet Take 1 tablet (500 mg total) by mouth in the morning.Active turmeric root extract 500 mg capsule Take 1 capsule by mouth in the morning and 1 capsule before bedtime.Active aspirin 81 mg Take 1 tablet (81 mg total) by mouth in the morning. 30 tablet 5Active multivit-min/folic/vit K/lycop (ONE-A-DAY MEN'S MULTIVITAMIN ORAL) Take by mouth in the morning.Active valACYclovir (VALTREX) 1000 mg tablet Take 1 tablet (1,000 mg total) by mouth.5Active atorvastatin (LIPITOR) 40 mg tablet Take 1 tablet (40 mg total) by mouth nightly. 90 tablet 5Active Active Problems ProblemNoted DateDiagnosed DateCerebrovascular accident (CVA), unspecified ygsqgqbmu39/03/2025enign essential HTN12/05/2022 Overview (08/23/2024): Essential hypertension, on toprol, altace Flwxmjarnxhjaokcmo15/15/2023 Encounters DateTypeDepartmentCare NlftUkcnazuempp23/19/2025Refill [facility] [address] [place] [address] Vicky Rutherford RN Med Jbdavr2602/05/2025Refill [facility] [address] [place] [address] Eduard Zapata MD Med Refillfrom Last 3 Months Family History Medical HistoryRelationNameCommentsNo Known ProblemsBrotherNo Known Problems DaughterCancerFatherBilly Kennedy OsborneDiabetesFatherBilly Kennedy OsborneHypertension FatherBilly Kennedylani Cummings Known ProblemsMaternal GrandfatherNo Known Problems Maternal GrandmotherCOPDMotherPearl OsborneNo Known ProblemsPaternal Grandfather No Known ProblemsPaternal GrandmotherNo Known ProblemsSisterNo Known ProblemsSon RelationNameStatusCommentsBrotherDaughterFatherBilly Kennedy OsborneDeceasedMaternal GrandfatherMaternal GrandmotherMotherPearl OsborneDeceasedPaternal Grandfather Paternal GrandmotherSisterSon Social History Tobacco UseTypesPacks/DayYears UsedDateSmoking Tobacco: NeverSmokeless Tobacco: NeverAlcohol UseStandard Drinks/WeekCommentsYes2 (1 standard drink = 0.6 oz pure alcohol)[facility] UtilitiesAnswerDate RecordedIn the past 12 months has the [employer], gas, oil, or water [employer] threatened to shut off services in your home?No 08/23/2024Social Connection and Isolation PanelAnswerDate RecordedIn a typical week, how many times do you talk on the phone with family, friends, or neighbors?Three times a week08/23/2024How often do you get together with friends or relatives?Twice a week08/23/2024How often do you attend mu-ism or shinto services?Never08/23/2024Do you belong to any clubs or organizations such as mu-ism groups, unions, fraternal or athletic groups, or school groups?Yes 08/23/2024How often do you attend meetings of the clubs or organizations you belong to?1 to 4 times per year08/23/2024re you , , , , never , or living with a partner?Uomzqnc1808/23/2024UDIT-C AnswerDate RecordedQ1: How often do you have a drink containing alcohol?2-4 times a month08/23/2024Q2: How many drinks containing alcohol do you have on a typical day when you are drinking?1 or Q3: How often do you have six or more drinks on one occasion?Never08/23/2024Overall Financial Resource Strain (CARDIA)AnswerDate RecordedHow hard is it for you to pay for the very basics like food, housing, medical care, and heating?Not hard at all08/23/2024PHQ-2 AnswerDate RecordedTotal Pkunw424Finhighland ridge hospital [place] of Occupational Health - Occupational Stress QuestionnaireAnswerDate RecordedDo you feel stress - tense, restless, nervous, or anxious, or unable to sleep at night because your mind is troubled all the time - these days?Not at all08/23/2024Exercise Vital SignAnswerDate RecordedOn average, how many days per week do you engage in moderate to strenuous exercise (like a brisk walk)?2 days08/23/2024On average, how many minutes do you engage in exercise at this level?30 min08/23/2024PRAPARE - TransportationAnswerDate RecordedIn the past 12 months, has lack of transportation kept you from medical appointments or from getting medications?No 08/23/2024In the past 12 months, has lack of transportation kept you from meetings, work, or from getting things needed for daily living?No08/23/2024 Housing InstabilityAnswerDate RecordedAre you worried or concerned that in the next two months you may not have stable housing that you own, rent or stay in as a part of a household?No08/23/2024hildcareAnswerDate RecordedDo problems getting child & adolescent psychiatrist make it difficult for you to work or study?No08/23/2024 EmploymentAnswerDate RecordedDo you need help finding a local career center and/or a training program?No08/23/2024Hunger ScreeningAnswerDate RecordedWithin the past 12 months we worried whether our food would run out before we got money to buy more.Never True12/27/2024Within the past 12 months the food we bought just didn't last and we didn't have money to get more.Never True12/27/2024 Purpose - LifeAnswerDate RecordedI have a purpose and direction in my life. Strongly Agree08/23/2024Sex and Gender InformationValueDate RecordedSex Assigned at BirthNot on fileLegal AzrBokb8401/26/2015 11:46 AM EDTGender IdentityNot on fileSexual OrientationNot on file Last Filed Vital Signs Vital SignReadingTime TakenCommentsBlood Prmohqzn742/7007 9:04 AM EDT Gcspc889812/27/2024 9:04 AM CBIPafzfqgykel64.6 ??C (97.9 ??F)08/24/2024 11:55 AM ESTRespiratory Cgka472208/24/2024 11:55 AM ESTOxygen Wesmnogyrn38%12/27/2024 9:04 AM EDTInhaled Oxygen Concentration--Usqqfn667.7 kg (233 lb)12/27/2024 9:04 AM NYVGommqf878.3 cm (5' 9 )12/27/2024 9:04 AM EDTBody Mass Index34.41012/27/2024 9:04 AM EDT Plan of Treatment Health MaintenanceDue DateLast DoneCommentsAdult BMI Follow Up Plan1983 DTaP,Tdap and Td Vaccines (1 - Tdap)1984Zoster (Shingles) Vaccine (1 of 2) 2015COVID-19 Vaccine (7 - 2025-26 season)/, 05/28/2023, 03/14/2022, Additional history existsInfluenza Vsejxrq10/, 05/08/2023, 05/07/2022, Additional history existsDepression Vocscdlim98/03/2026 08/23/2024dult BMI Jegxmcdwm61Tobacco Hhxmuxbwe24/07/2026 12/27/2024 Goals GoalPatient Goal TypeAssociated ProblemsRecent ProgressPatient-Stated?Author Home with self care Sadaf Carnes RN Note: Evaluation of progress towards goal: Patient plans to return home with self care. He is agreeable to outpatient therapy if needed. He does not feel any of his deficits require SNF care and patient isnot homebound for home health care. Medical Devices Not on file Insurance * Guarantor: Jose FordeAccount TypeRelation to PatientDate of PhoneBilling AddressPersonal/SgxqazZfxy88/21/1966 [facility] [place] [address] Advance Directives * Full Code (Latest Code Status on File) Date ActivatedDate InactivatedComments08/23/2024 7:40 PM08/24/2024 6:05 PM Care Teams Team MemberRelationshipSpecialtyStart DateEnd Date Eduarda Beth MD [address] [place] [address] PCP - GeneralFamily Medicine08/25/24
--- OUTSIDE RECORDS SUMMARY | 2025-05-05 12:52 | XMS_ITS | Clinical Summary ---
Author Organization [facility] Healthcare Address [address] [place] [address] Care Team Providers Care Astrochemist Name Role Phone Eduarda Beth MD Primary Care Provider [phone] Allergies No known active allergies Medications MedicationSigDispense QuantityRefillsLast FilledStart DateEnd DateStatus oxyCODONE-acetaminophen (Percocet) 5-325 MG tablet Take 1 tablet by mouth 1 (one) time each day.3Active tiZANidine (Zanaflex) 4 MG tablet Take 4 mg by mouth in the morning and 4 mg before bedtime.Active metoprolol tartrate (Lopressor) 100 MG tablet Indications:Benign essential HTNTAKE 1 TABLET BY MOUTH TWICE A DAY WITH FOOD 200 tablet 4Active atorvastatin (Lipitor) 40 MG tablet Take 40 mg by mouth at uvfmmoy07/04/2025Active aspirin 81 MG EC tablet Take 81 mg by mouth DailyActive losartan (Cozaar) 100 MG tablet Indications:Benign essential HTNTAKE 1 TABLET BY MOUTH ONCE DAILY 100 tablet 5Active spironolactone (Aldactone) 50 MG tablet Indications:Benign essential HTNTAKE 1 TABLET BY MOUTH ONCE DAILY 100 tablet 5Active indapamide (Lozol) 2.5 MG tablet Indications:Encounter for immunizationTake 1 tablet (2.5 mg) by mouth in the morning. 90 tablet /6Active Active Problems ProblemNoted DateDiagnosed DateCerebrovascular accident (CVA)5Benign essential HTN12/05/2022 Assessment & Plan (03/03/2025 3:41 PM EDT): Add lozol in placed of hctz Glucose xxytrijftlv58/15/2023 Assessment & Plan (03/02/2025 2:11 PM EDT): Orders: Hemoglobin A1c; Future Comprehensive metabolic panel; Future Eynuzebcwyump44/15/2023 Assessment & Plan (03/02/2025 2:11 PM EDT): Howjbtsngnryvkzerx46/15/2023Thoracic degenerative disc namzums9312/05/2022 Encounters DateTypeDepartmentCare PiudOguvbesvgdy69/11/2025Results Follow-Up [address] [facility] [place] [phone] Eduarda Beth MD Hemoglobin A1c, TSH W/REFLEX TO FT4, Lipid panel, Additional followed-up results: 1:20 PM EDTOffice Visit [address] [facility] [place] [phone] Eduarda Beth MD Subclinical hypothyroidism (Primary Dx); Encounter for immunization; Glucose intolerance; Benign essential HTN ; Hypercalcemia; Encounter for screening for malignant neoplasm of colon; Prostate cancer rvldjroem23/10/2025amboo flowsheet [address] [place] [phone] Eduarda Beth MD 03/02/2025Travelfrom Last 3 Months Immunizations ImmunizationAdministration DatesNext DueInfluenza, injectable, quadrivalent 03/23/2019Influenza, injectable, quadrivalent, preservative free05/08/2023, 05/07/2022,05/04/2021Influenza, seasonal, injectable, preservative free 03/02/2025,04/09/2024,05/02/2014Moderna SARS-CoV-2 50mcg/0.5mL Dgvznyz9703/14/2022 Family History Medical HistoryRelationNameCommentsCancerFatherBilly JoeCOPDMotherPearlRelation NameStatusCommentsFatherBilly JoeMotherPearl Social History Tobacco UseTypesPacks/DayYears UsedDateSmoking Tobacco: NeverSmokeless Tobacco: Never Tobacco Cessation:Counseling Given: Not Answered Alcohol UseStandard Drinks/WeekCommentsYes1 (1 standard drink = 0.6 oz pure alcohol)B1300 Health LiteracyAnswerDate RecordedHow often do you need to have someone help you when you read instructions, pamphlets, or other written material from your doctor or pharmacy?Never08/26/2024Humiliation, Afraid, Rape, and Kick questionnaireAnswerDate RecordedWithin the last year, have you been afraid of your partner or ex-partner?No05/07/2023Within the last year, have you been humiliated or emotionally abused in other ways by your partner or ex-partner?No05/07/2023Within the last year, have you been kicked, hit, slapped, or otherwise physically hurt by your partner or ex-partner?No05/07/2023Within the last year, have you been raped or forced to have any kind of sexual activity by your partner or ex-partner?No05/07/2023Social Connection and Isolation Panel AnswerDate RecordedIn a typical week, how many times do you talk on the phone with family, friends, or neighbors?Once a week08/26/2024How often do you get together with friends or relatives?Three times a week08/26/2024How often do you attend pentecostal or orthodox services?Never08/26/2024Do you belong to any clubs or organizations such as pentecostal groups, unions, fraternal or athletic groups, or school groups?Yes08/26/2024How often do you attend meetings of the clubs or organizations you belong to?More than 4 times per year08/26/2024re you , , , , never , or living with a partner? 08/26/2024UDIT-CAnswerDate RecordedQ1: How often do you have a drink containing alcohol?2-4 times a month08/26/2024Q2: How many drinks containing alcohol do you have on a typical day when you are drinking?1 or Q3: How often do you have six or more drinks on one occasion?Less than bbpqupg7908/26/2024Overall Financial Resource Strain (CARDIA)AnswerDate RecordedHow hard is it for you to pay for the very basics like food, housing, medical care, and heating?Not hard at all08/26/2024PHQ-2AnswerDate RecordedPatient Health Questionnaire-2 Score0 05/11/2024[facility] - Occupational Stress QuestionnaireAnswerDate RecordedDo you feel stress - tense, restless, nervous, or anxious, or unable to sleep at night because yourmind is troubled all the time - these days?Only a butqcw7608/26/2024Exercise Vital SignAnswerDate Recorded On average, how many days per week do you engage in moderate to strenuous exercise (like a brisk walk)?2 days08/26/2024On average, how many minutes do you engage in exercise at this level?60 min08/26/2024Hunger Vital SignAnswerDate RecordedWithin the past 12 months, you worried that your food would run out before you got the money to buymore.Never true08/26/2024Within the past 12 months, the food you bought just didn't last and you didn't have money to get more.Never true08/26/2024PRAPARE - TransportationAnswerDate RecordedIn the past 12 months, has lack of transportation kept you from medical appointments or from getting medications?No08/26/2024In the past 12 months, has lack of transportation kept you from meetings, work, or from getting things needed for daily living?No08/26/2024Housing Stability Vital SignAnswerDate RecordedIn the last 12 months, was there a time when you were not able to pay the mortgage or rent on time?No05/07/2023Number of Places Lived in the Last YearNot on file 05/07/2023In the last 12 months, was there a time when you did not have a steady place to sleep or slept in ashelter (including now)?No05/07/2023Housing Stability Vital SignAnswerDate RecordedIn the last 12 months, was there a time when you were not able to pay the mortgage or rent on time?No08/26/2024In the past 12 months, how many times have you moved where you were living? At any time in the past 12 months, were you homeless or living in a fdc (including now)?08/26/2024Sex and Gender InformationValueDate RecordedSex Assigned at HpgliAybj23/07/2023 11:42 AM EDTLegal ZvxThxb6909/04/2022 6:47 PM EDT Gender ZktycfxwAiyc69/07/2023 11:42 AM EDTSexual YobwpnzyxefQqpxzvfq07/07/2023 11:42 AM EDT Last Filed Vital Signs Vital SignReadingTime TakenCommentsBlood Rgvzxkhu753/80003/02/2025 1:19 PM EDT Pbleb044603/02/2025 1:19 PM KIBYilbhutglcc62.4 ??C (97.5 ??F)02/28/2023 9:01 AM EDTRespiratory Aolk283103/02/2025 1:19 PM EDTOxygen Ewhryosyvq80%03/02/2025 1:19 PM EDTInhaled Oxygen Concentration--Aiifew43.5 kg (219 lb 6.4 oz)03/02/2025 1:19 PM YBYFcdzum740.9 cm (5' 9.25 )03/02/2025 1:19 PM EDTBody Mass Index32.17 03/02/2025 1:19 PM EDT Plan of Treatment DateTypeDepartmentCare Team (Latest Contact Info)Dixqcpbfzfp48/11/2026 1:20 PM EDTOffice Visit [facility] [address] [facility] [place] [address] Eduarda Beth MD [address] [place] [address] Health MaintenanceDue DateLast DoneCommentsCT Ilvixbixfevm07/21/1966Colonoscopy 1965FIT1965FOBT1965 9503Ffzizdqxqmacr89/21/1966COVID-19 Vaccine ( season)5003/14/2022, 03/14/2022, 06/06/2021, Additional history existsColorectal Cancer Aoxenfroz01/15/2028FIT-DNA81 Influenza DxnooahMhfesfjzc27/10/2025, 04/09/2024, 05/08/2023, Additional history existsPneumococcal Vaccine: Pediatrics (0 to 5 Years) and At-Risk Patients (6 to 64 Years)Aged OutNo longer eligible based on patient's age to complete this topic Procedures Procedure NamePriorityDate/TimeAssociated DiagnosisCommentsLAB COLOGUARD?? COLON CANCER LVGIIZRddsmgt98/15/2025 10:45 AM EDT Encounter for screening for malignant neoplasm of colon PSA, QPIRBQnssfez27/10/2025 1:53 PM EDT COMPREHENSIVE METABOLIC AJCTMRealirn38/10/2025 1:53 PM EDT LIPID UBVTQSwofduh43/10/2025 1:53 PM EDT TSH W/REFLEX TO QQ8Fqlffdu80/10/2025 1:53 PM EDT Subclinical hypothyroidism HEMOGLOBIN M4MRxmmmkt65/10/2025 1:53 PM EDT Glucose intolerance from Last 3 Months Results * Cologuard?? colon cancer screening (04/06/2025 10:45 AM EDT)ComponentValueRef RangeTest MethodAnalysis TimePerformed AtPathologist SignatureNONINV COLON CA DNA+OCC BLD SCRN STL-JHQCqllcydiMflnorqn68/22/2025 8:42 AM EDTEXXAware (CLIA #:[id number])Comment: The Cologuard (TM) test was performed on this specimen. NEGATIVE TEST RESULT. A negative Cologuard result indicates a low likelihood that a colorectal cancer (CRC) or advanced adenoma (adenomatous polyps with more advanced pre-malignant features) is present. The chance that a person with a negative Cologuard test has a colorectal cancer is less than 1 in 1500 (negative predictive value >99.9%) or has an advanced adenoma is less than 5.3% (negative predictive value 94.7%). These data are based on a prospective cross-sectional study of 10,000 individuals at average risk for colorectal cancer who were screened with both Cologuard and colonoscopy. (Ksenia Cordova al, N Engl J Med 2014;370(14):8874-5325) The normal value (reference range) for this assay is negative. COLOGUARD RE-SCREENING RECOMMENDATION: Periodic colorectal cancer screening is an important part ofpreventive healthcare for asymptomatic individuals at average risk for colorectal cancer. Followinga negative Cologuard result, the [place] [employer] Society and U.S. Multi-Society Task Force screening guidelines recommend a Cologuard re-screening interval of 3 years. References: [place] [employer] Guideline for Colorectal Cancer Screening: https://www.cancer.or g/cancer/fpyth-dkddui-ratmqx/nrpaumyli-thpdwedpy-ftssntv/acs-recommendations.htm aron.; Donal CERVANTES, Indra KURTZ, Sushma StoneK, Colorectal Cancer Screening: Recommendations for Physicians and Patients from the U.S. Multi-Society Task Force on Colorectal Cancer Screening , Am J Gastroenterology 2017; 112:4895-5521. TEST DESCRIPTION: Composite algorithmic analysis of stool DNA-biomarkers with hemoglobin immunoassay. ?? Quantitative values of individual biomarkers are not reportable and are not associated with individual biomarker result reference ranges. Cologuard is intended for colorectal cancer screening ofadults of either sex, 45 years or older, who are at average-risk for colorectal cancer (CRC). Cologuard has been approved for use by the U.S. FDA. The performance of Cologuard was established in a cross sectional study of average-risk adults aged 50-84. Cologuard performance in patients ages 45 to 49 years was estimated by sub-group analysis of near-age groups. Colonoscopies performed for a positive result may find as the most clinically significant lesion: colorectal cancer [4.0%], advanced adenoma (including sessile serrated polyps greater than or equal to 1cm diameter) [20%] or non- advanced adenoma [31%]; or no colorectal neoplasia [45%]. These estimates are derived from a prospective cross-sectional screening study of 10,000 individuals at average risk for colorectal cancer who were screened with both Cologuard and colonoscopy. (Ksenia Cordova al, N Engl J Med 2014;370(14):0717-2019.) Cologuard may produce a false negative or false positive result (no colorectal cancer or precancerous polyp present at colonoscopy follow up). A negative Cologuard test result does not guarantee the absence of CRC or advanced adenoma (pre-cancer). The current Cologuard screening interval is every 3 years. ([place] [employer] and U.S. Multi-Society Task Force). Cologuard performance data in a 10,000 patient pivotal study using colonoscopy as the reference method can be accessed at the following location: www.[employer].com/results. Additional description of the Cologuard test process, warnings and precautions can be found at www.cologuard.com. Specimen (Source)Anatomical Location / LateralityCollection Method / Volume Collection TimeReceived TimeStool specimen (specimen)04/06/2025 10:45 AM EDT 04/07/2025 12:50 PM EDT Narrative Authorizing ProviderResult TypeResult StatusEduarda DISLA DocDoc DIAGNOSTICS ORDERABLESFinal ResultPerforming OrganizationAddressCity/State/ZIP CodePhone Number .[employer] (CLIA #:[id number]) [address] [place] [address] [phone] [employer] (CLIA #:[id number]) [address] [place] [address] * TSH W/REFLEX TO FT4 (03/02/2025 1:53 PM EDT)ComponentValueRef RangeTest Method Analysis TimePerformed AtPathologist SignatureTSH W/REFLEX TO FT43.310.40 - 4.50 mIU/LQUESTSpecimen (Source)Anatomical Location / LateralityCollection Method / VolumeCollection TimeReceived Time03/02/2025 1:53 PM EDT03/02/2025 1:54 PM EDT Narrative Resulting Agency Comment Performing Organization Information ?Site ID: QPT ?Name: [facility] ?Address: [address] [place] [address], [address] [place] [phone] ?Director: Demarcus Verdugo MD Authorizing ProviderResult TypeResult StatusEduarda Beth MDCOMMUNITY [facility] BLOOD ORDERABLES Final ResultPerforming OrganizationAddressCity/State/ZIP CodePhone Number [facility] * PSA (03/02/2025 1:53 PM EDT)ComponentValueRef RangeTest MethodAnalysis Time Performed AtPathologist SignaturePSA, TOTAL1.22< OR = 4.00 ng/mLQUESTComment: The total PSA value from this assay system is standardized against the WHO standard. The test result will be approximately 20% lower when compared to the equimolar-standardized total PSA (Mery Low). Comparison of serial PSA results should be interpreted with this fact in mind. This test was performed using the Siemens chemiluminescent method. Values obtained from different assay methods cannot be used interchangeably. PSA levels, regardless of value, should not be interpreted as absolute evidence of the presence or absence of disease. Specimen (Source)Anatomical Location / LateralityCollection Method / Volume Collection TimeReceived Time03/02/2025 1:53 PM EDT03/02/2025 1:54 PM EDT Narrative Resulting Agency Comment Performing Organization Information ?Site ID: QPT ?Name: [facility] ?Address: [address] [place] [address], [address] [place] [phone] ?Director: Demarcus Verdugo MD Authorizing ProviderResult TypeResult StatusEduarda DISLA BLOOD ORDERABLES Final ResultPerforming OrganizationAddressCity/State/ZIP CodePhone Number [facility] * (ABNORMAL) Hemoglobin A1c (03/02/2025 1:53 PM EDT)ComponentValueRef RangeTest MethodAnalysis TimePerformed AtPathologist SignatureHemoglobin A1C6.0(H)<5.7 % QUESTComment: For someone without known diabetes, a hemoglobin A1c value between 5.7% and 6.4% is consistent with prediabetes and should be confirmed with a follow-up test. For someone with known diabetes, a value <7% indicates that their diabetes is well controlled. A1c targets should be individualized based on duration of diabetes, age, comorbid conditions, and other considerations. This assay result is consistent with an increased risk of diabetes. Currently, no consensus exists regarding use of hemoglobin A1c for diagnosis of diabetes for children. Specimen (Source)Anatomical Location / LateralityCollection Method / Volume Collection TimeReceived TimeBloodVenous blood specimen / Eljtygj1403/02/2025 1:53 PM EDT03/02/2025 1:54 PM EDT Narrative Resulting Agency Comment Performing Organization Information ?Site ID: QPT ?Name: [facility] ?Address: [address] [place] [address], [address] [place] [phone] ?Director: Demarcus Verdugo MD Authorizing ProviderResult TypeResult StatusEduarda Beth MDLAB BLOOD ORDERABLES Final ResultPerforming OrganizationAddressCity/State/ZIP CodePhone Number [facility] * (ABNORMAL) Lipid panel (03/02/2025 1:53 PM EDT)ComponentValueRef RangeTest MethodAnalysis TimePerformed AtPathologist SignatureCHOLESTEROL, PYNNB500<200 mg/dLQUESTHDL NNNUMEDHWWN69> OR = 40 mg/uVLAUUAIAVCOYJGFDPMN634(H)<150 mg/dL QUESTLDL TYKNBMJKLCA07pm/dL (calc)QUESTComment: Reference range: <100 Desirable range <100 mg/dL for primary prevention; <70 mg/dL for patients with CHD or diabetic patients with > or = 2 CHD risk factors. LDL-C is now calculated using the Vega-Javed calculation, which is a validated novel method providing better accuracy than the Friedewald equation in the estimation of LDL-C. Vega SS et al. MARILYN. 2013;310(19): 6179-5228 (http://education.[employer].com/faq/FHT106) CHOL/HDLC RATIO3.1<5.0 (calc)QUESTNON HDL DQVZMCDPTSV873<130 mg/dL (calc)QUEST Comment: For patients with diabetes plus 1 major ASCVD risk factor, treating to a non-HDL-C goal of <100 mg/dL (LDL-C of <70 mg/dL) is considered a therapeutic option. Specimen (Source)Anatomical Location / LateralityCollection Method / Volume Collection TimeReceived Time03/02/2025 1:53 PM EDT03/02/2025 1:54 PM EDT Narrative Resulting Agency Comment Performing Organization Information ?Site ID: QPT ?Name: [facility] ?Address: [address] [place] [address], [address] [place] [address] ?Director: Demarcus Verdugo MD Authorizing ProviderResult TypeResult StatusEduarda Beth MDLAB BLOOD ORDERABLES Final ResultPerforming OrganizationAddressCity/State/ZIP CodePhone Number [facility] * (ABNORMAL) Comprehensive metabolic panel (03/02/2025 1:53 PM EDT)Component ValueRef RangeTest MethodAnalysis TimePerformed AtPathologist SignatureGlucose 8765 - 99 mg/dLQUESTComment: ? Fasting reference interval GVB325 - 25 mg/dLQUESTCreatinine0.990.70 - 1.30 mg/fHOXQLVYOUO00> OR = 60 mL/min/1.62j8FVOCAQNY/CREATININE RATIOSEE NOTE: (calc)QUESTComment: ?? Not Reported: BUN and Creatinine are within ?? reference range. ? Lgiwau436439 - 146 mmol/LQUESTPotassium, Bld4.13.5 - 5.3 mmol/WJVCGJJokaunet0996 - 110 mmol/LQUESTCarbon Vsghpcp0826 - 32 mmol/BIKQZZPvtsjxq90.6(H)8.6 - 10.3 mg/dLQUESTPROTEIN, TOTAL7.36.1 - 8.1 g/dLQUESTALBUMIN5.03.6 - 5.1 g/dLQUEST GLOBULIN2.31.9 - 3.7 g/dL (calc)QUESTALBUMIN/GLOBULIN RATIO2.21.0 - 2.5 (calc) QUESTBILIRUBIN, TOTAL0.90.2 - 1.2 mg/dLQUESTALKALINE IJTRXEVYPKG5065 - 144 U/L KAXAWREL3879 - 35 U/TJOOTNITP131 - 46 U/LQUESTSpecimen (Source)Anatomical Location / LateralityCollection Method / VolumeCollection TimeReceived Time 03/02/2025 1:53 PM EDT03/02/2025 1:54 PM EDT Narrative Resulting Agency Comment Performing Organization Information ?Site ID: QPT ?Name: [facility] ?Address: [address] [place] [address], [address] [place] [address] ?Director: Demarcus Verdugo MD Authorizing ProviderResult TypeResult StatusEduarda Beth MDLAB BLOOD ORDERABLES Final ResultPerforming OrganizationAddressCity/State/ZIP CodePhone Number [facility] from Last 3 Mon[place] [address] Care Teams Team MemberRelationshipSpecialtyStart DateEnd Date Eduarda Beth MD [address] [place] [address] PCP - [facility]Mer[facility]one [facility]10/29/22
--- OUTSIDE RECORDS SUMMARY | 2025-05-05 12:52 | XMS_ITS | CCD ---
Author Organization [facility] Care Team Providers Care Business Case Analyst Name Role Phone LAKSHMIPATHY ., NARENDRANATH Admitting [...] Unavailable Eduarda Beth MD Primary Care Provider [phone] Eduarda Beth MD Primary Care Provider EDUARDA MAGANA Primary Care Unavailable CIELO DAVID Admitting Unavailable CIELO DAVID Attending Unavailable ANA LÓPEZ Referring Unavailable SATHYA EDUARDA Milka Primary Care Unavailable ANA LÓPEZ Attending Unavailable ANA LÓPEZ Referring Unavailable SATHYA [facility] Primary Care Unavailable EDUARD ZAPATA Attending Unavailable ANA LÓPEZ Referring Unavailable SATHYA EDUARDA Milka Primary Care Unavailable EDUARD ZAPATA Referring Unavailable SATHYA [facility] Primary Care Unavailable LITO ENRIQUEZ Attending Unavailable SATHYA EDUARDA Jarquin Referring Unavailable EDUARDA BETH Primary Care Unavailable EDUARDA BETH Attending Unavailable EDUARDA BETH Attending Unavailable EDUARAD BETH Attending Unavailable Medications Current Medications MedicationDrug Class(es)DatesSig (Normalized)Sig (Original)acetaminophen 325 mg / oxyCODONE hydrochloride 5 mg oral tablet (16 sources)Opioid AgonistStart: 56-92-0739rwof 1 tablet by mouth once daily oxyCODONE-acetaminophen (Percocet) 5-325 MG tablet Take 1 tablet by mouth 1 (one) time each day. 05/07/2023 Activetake 1 tablet by mouth every six hours as needed for painoxyCODONE-acetaminophen (PERCOCET) 5-325 mg per tablet Take 1 tablet by mouth every 6 (six) hours as needed for pain. Activeascorbic acid 500 mg oral tablet (7 sources)Vitamin Ctake 1 tablet by mouth in the morningascorbic acid (VITAMIN C) 500 mg tablet Take 1 tablet (500 mg total) by mouth in the morning. Active aspirin 81 mg delayed release oral tablet (13 sources)Platelet Aggregation Inhibitor, Nonsteroidal Anti-inflammatory Drug Start: 03-97-7597brft 1 tablet by mouth in the morningaspirin 81 mg Take 1 tablet (81 mg total) by mouth in the morning. 30 tablet 08/25/2024 Active atorvastatin 40 mg oral tablet (20 sources)HMG-CoA Reductase InhibitorStart: 08-24-2024 End: 14-32-4672udwz 1 tablet by mouth at bedtimeatorvastatin (Lipitor) 40 MG tablet Take 40 mg by mouth at bedtime 08/24/2024 ActiveStart: 06-09-2024 End: 04-23-7034fieh 1 tablet by mouth at bedtimeatorvastatin (Lipitor) 10 MG tablet Indications: Hypercholesteremia (CMS/HCC) TAKE 1 TABLET BY MOUTH AT BEDTIME 90 tablet 3 06/09/2024 08/30/2024 Discontinued (Reorder)Start: 32-09-0984cgei 1 tablet by mouth at bedtimeatorvastatin (Lipitor) 10 MG tablet Indications: Hypercholesteremia (CMS/HCC) take 1 tablet by mouth at bedtime 90 tablet 3 06/04/2023 Activeindapamide 2.5 mg oral tablet (2 sources)Thiazide-like DiureticStart: 03-02-2025 End: 60-22-1616mgtr 1 tablet by mouth in the morningindapamide (Lozol) 2.5 MG tablet Indications: Encounter for immunization Take 1 tablet (2.5 mg) by mouth in the morning. 90 tablet 3 03/02/2025 03/02/2026 Activelosartan potassium 100 mg oral tablet (16 sources)Angiotensin 2 Receptor BlockerStart: 72-18-4260rsno 1 tablet by mouth once dailylosartan (Cozaar) 100 MG tablet Indications: Benign essential HTN TAKE 1 TABLET BY MOUTH ONCE SAYOV504 tablet 3 10/08/2024 Activetake 1 tablet by mouth in the morninglosartan (COZAAR) 50 mg tablet Take 1 tablet (50 mg total) by mouth in the morning. Activemetoprolol tartrate 100 mg oral tablet (16 sources)beta-Adrenergic BlockerStart: 20-89-1470xrda 1 tablet by mouth twice daily at mealtimemetoprolol tartrate (Lopressor) 100 MG tablet Indications: Benign essential HTN TAKE 1 TABLET BY MOUTH TWICE A DAY WITH FOOD 200 tablet 3 06/07/2024 ActiveStart: 45-50-1207dsgf 1 tablet by mouth twice daily at mealtime metoprolol tartrate (Lopressor) 100 MG tablet Indications: Benign essential HTN (CMS/HCC) take 1 tablet by mouth twice a day with food 200 tablet 3 06/04/2023 Activetake 2 tablets by mouth in the morning, then take 2 tablets by mouth at bedtimemetoprolol tartrate (LOPRESSOR) 50 mg tablet Take 2 tablets (100 mg total) by mouth in the morning and 2 tablets (100 mg total) before bedtime. Activemultivit-min/folic/vit K/lycop (ONE-A-DAY MEN'S MULTIVITAMIN ORAL) (5 sources)multivit-min/folic/vit K/lycop (ONE-A-DAY MEN'S MULTIVITAMIN ORAL) Take by mouth in the morning. Activemultivit-min/folic/vit K/lycop (ONE-A-DAY MEN'S MULTIVITAMIN ORAL) Take by mouth daily. Activespironolactone 50 mg oral tablet (18 sources)Aldosterone AntagonistStart: 39-18-9913yxfx 1 tablet by mouth once dailyspironolactone (Aldactone) 50 MG tablet Indications: Benign essential HTN TAKE 1 TABLET BY MOUTH ONCE DAILY 100 tablet 3 10/08/2024 ActiveStart: 06-04-2023 End: 58-59-0266auyl 1 tablet by mouth once dailyspironolactone (Aldactone) 50 MG tablet Indications: Benign essential HTN (CMS/HCC) Take 1 tablet (50 mg) by mouth Daily 100 tablet 3 08/30/2024 Activetake 1 tablet by mouth in the morning spironolactone (ALDACTONE) 25 mg tablet Take 1 tablet (25 mg total) by mouth in the morning. ActivetiZANidine 4 mg oral tablet (16 sources)Central alpha-2 Adrenergic Agonisttake 1 tablet by mouth in the morningtiZANidine (Zanaflex) 4 MG tablet Take 4 mg by mouth in the morning and 4 mg before bedtime. Activeturmeric root extract 500 mg capsule (7 sources)take 1 capsule by mouth in the morningturmeric root extract 500 mg capsule Take 1 capsule by mouth in the morning and 1 capsule before bedtime. ActivevalACYclovir 1000 mg oral tablet (2 sources)Herpesvirus Nucleoside Analog DNA Polymerase Inhibitor, Herpes Simplex Virus Nucleoside Analog DNA Polymerase Inhibitor, Herpes Zoster Virus Nucleoside Analog DNA Polymerase InhibitorStart: 41-65-8620cglIMCznniut (VALTREX) 1000 mg tablet Take 1 tablet (1,000 mg total) by mouth. 11/17/2024 Active Completed/Discontinued Medications MedicationDrug Class(es)DatesSig (Normalized)Sig (Original)hydroCHLOROthiazide 50 mg oral tablet (18 sources)Thiazide DiureticStart: 08-30-2024 End: 34-45-1288nkuc 1 tablet by mouth once dailyhydroCHLOROthiazide (HYDRODiuril) 50 MG tablet Indications: Benign essential HTN Take 1 tablet (50 m g) by mouth Daily 90 tablet 3 09/06/2024 03/02/2025 Discontinued (Therapy completed)Start: 06-03-2023 End: 40-07-1201bgha 1 tablet by mouth once dailyhydroCHLOROthiazide (HYDRODiuril) 25 MG tablet Indications: Benign essential HTN (CMS/HCC) TAKE 1 TA BLET BY MOUTH ONCE DAILY 90 tablet 3 05/24/2024 08/30/2024 Discontinued (Dose adjustment) Problems Active Problems Problem ClassificationProblemDateDocumented DateEpisodic/ChronicAcute cerebrovascular disease (18 sources)Cerebrovascular accident; Translations: [Cerebral infarction, unspecified]Onset: 210305-92-6104WrmctfxEdfni cerebrovascular disease (1 source)Acute cerebrovascular diseaseOnset: 98-99-4320Dvucpcctpr heart failure; nonhypertensive (1 source)Unspecified diastolic (congestive) heart failure; Translations: [Unspecified diastolic (congestive)heart failure]Onset: 16-75-1285Oefydle Disorders of lipid metabolism (20 sources)Hypercholesterolemia; Translations: [Pure hypercholesterolemia, unspecified]Onset: 669899-38-4369DvfinxvEgkaegrcx hypertension (20 sources)Benign essential hypertension; Translations: [Essential (primary) hypertension]Onset: 697042-46-6541WvygqlrRfhgivwgdasav and screening for infectious disease (6 sources)Patient encounter status; Translations: [Encounter for immunization] 99-14-4098IvmtmnwbTbboughyjai chest pain (2 sources)Chest pain; Translations: [Chest pain, unspecified]27-08-5837Ojugrcob Osteoarthritis (7 sources)Unilateral primary osteoarthritis, left knee; Translations: [Unilateral post-traumatic osteoarthritis, left knee]Onset: 32-18-2701Iupoyff Other nervous system disorders (2 sources)Expressive dysphasia; Translations: [Aphasia]84-87-8709KrxcwzvThsmj nutritional; endocrine; and metabolic disorders (11 sources)Disorder of carbohydrate metabolism; Translations: [Other disorders of intestinal carbohydrate absorption]Onset: 920670-72-6541XxpsaykIowoq nutritional; endocrine; and metabolic disorders (11 sources)Hypercalcemia; Translations: [Hypercalcemia]Onset: 12-05-2022 51-33-1315HdfuguuRaqwfemcygb; intervertebral disc disorders; other back problems (15 sources)Spondylosis without myelopathy or radiculopathy, thoracic region; Translations: [Other intervertebral disc degeneration, thoracic region]Onset: 23-07-6440QrekihtGvucdtohajy; intervertebral disc disorders; other back problems (1 source)Pain in thoracic spine; Translations: [PAIN IN THORACIC SPINE]Onset: 59-67-5155NuploiybMryfgmw disorders (2 sources)Subclinical hypothyroidism; Translations: [Other specified hypothyroidism]90-37-3401QvxjmmxGikodbaluxuz (4 sources)LOW BACK PAIN, UNSPECIFIED; Translations: [LOW BACK PAIN, UNSPECIFIED]Onset: 58-44-2490Orocnbzjtwtc (1 source)New PatientOnset: 08-14-4953Mysgwckkcfen (1 source)TROUBLE SPEAKINGOnset: 08-23-2024 Past or Other Problems Problem ClassificationProblemDateDocumented DateEpisodic/ChronicMalaise and fatigue (1 source)Weakness; Translations: [Weakness]Onset: 31-28-9031GyddicnbUxsa disorders (7 sources)Mood disordersOnset: 623263-61-0678Yioks non-traumatic joint disorders (1 source)Effusion, left knee; Translations: [EFFUSION LEFT KNEE]Onset: 29-74-6900PisuvgnzLqnkl non-traumatic joint disorders (4 sources)Pain in left knee; Translations: [PAIN IN LEFT KNEE]Onset: 01-31-2022 EpisodicUnclassified (1 source)LOW BACK PAIN, UNSPECIFIED; Translations: [LOW BACK PAIN, UNSPECIFIED] Onset: 05-02-2022 Results Test NameValueInterpretationReference RangeFacilityLaboratory - Chemistry and Chemistry - challengeon 79-70-9023Qgfkboq [Mass/Vol]5 g/dL3.6 - 5.1 g/dLNOMS HealthcareAlbumin/Globulin [Mass ratio]2.2 {ratio}NOMS HealthcareALP [Catalytic activity/Vol]87 U/L35 - 144 U/LNOMS HealthcareALT [Catalytic activity/Vol]39 U/L 9 - 46 U/LNOMS HealthcareAST [Catalytic activity/Vol]20 U/L10 - 35 U/LNOMS HealthcareBilirubin [Mass/Vol]0.9 mg/dL0.2 - 1.2 mg/dLNOMS HealthcareCalcium [Mass/Vol]10.6 mg/dLHigh8.6 - 10.3 mg/dLNOMS HealthcareChloride [Moles/Vol]99 mmol/L98 - 110 mmol/LNOMS HealthcareCO2 [Moles/Vol]25 mmol/L20 - 32 mmol/LNOMS HealthcareCreatinine [Mass/Vol]0.99 mg/dL0.70 - 1.30 mg/dLNOMS Healthcare GFR/1.73 sq M.predicted among non-blacks MDRD (S/P/Bld) [Vol rate/Area]88 mL/min/{1.73_m2}> OR = 60 mL/min/1.80c7ZOSP HealthcareGlobulin (S) [Mass/Vol]2.3 g/dLNOMS HealthcareGlucose [Mass/Vol]87 mg/dL65 - 99 mg/dLNOID Healthcare Comment on above: Fasting reference interval Potassium [Moles/Vol]4.1 mmol/L3.5 - 5.3 mmol/LNOMS HealthcareProstate specific Ag [Mass/Vol]1.22 ng/mL< OR = 4.00NOID HealthcareComment on above:The total PSA value from this assay system [...] of the presence or absence of disease. Protein [Mass/Vol]7.3 g/dL6.1 - 8.1 g/dLNOID HealthcareSodium [Moles/Vol]136 mmol/L135 - 146 mmol/LNOMS HealthcareTSH Qn3.31 m[IU]/LNOMS HealthcareUrea nitrogen [Mass/Vol]21 mg/dL7 - 25 mg/dLNOID HealthcareUrea nitrogen/Creatinine [Mass ratio]SEE NOTE:[facility] HealthcareComment on above:Not Reported: BUN and Creatinine are within reference range. Laboratory - Hematology and Cell countson 75-18-1073ZuU2v (Bld) [Mass fraction]6 %HighNINF - 5.7 %[facility] HealthcareComment on above:For someone without known diabetes, a hemoglobin A1c [...] A1c for diagnosis of diabetes for children. Lipid 1996 panelon 50-19-0013Bpomepawtrw [Mass/Vol]148 mg/dLNINF - 200 mg/dLSaint Joseph Health CenterCholesterol in HDL [Mass/Vol]47 mg/dL> OR = 40[facility] Cholesterol in LDL [Mass/Vol]74 mg/dLmg/dL (calc)[facility] CenterComment on above:Reference range: <100 Desirable range <100 mg/dL for primary prevention; <70 mg/dL for patients with CHD or diabetic patients with > or = 2 CHD risk factors. LDL-C is now calculated using the Laura calculation, which is a validated novel method providing better accuracy than the Friedewald equation in the estimation of LDL-C. Vega SS et al. MARILYN. 2013;310(19): 8225-6863 (http://education.Fly6/faq/MLV216) Cholesterol non HDL [Mass/Vol]101 mg/dLNIMemphis Mental Health InstituteComment on above:For patients with diabetes plus 1 major ASCVD risk factor, treating to a non-HDL-C goal of <100 mg/dL (LDL-C of <70 mg/dL) is considered a therapeutic option. Cholesterol.total/Cholesterol in HDL [Mass ratio]3.1 {ratio}[facility] Triglyceride [Mass/Vol]171 mg/dLHighNINF - 150 mg/dLSaint Joseph Health CenterNo Panel Informationon 11-53-3435Mmvbcjokzhhdfr and review of laboratory resultsAbnormal [facility] CenterPerforming Organization Information Site ID: QPT Name: [facility] [facility] Address: [address] [place] [id number] Director: Demarcus Verdugo MDOz[facility] HealthcareDIRECT LDLon 09-30-2024 Cholesterol in LDL [Mass/Vol]63 mg/dLNormal<130ProMedica [facility] HospitalComment on above:Result Comment: LDL <100 mg/dL - Desirable LDL 130-159 mg/dL - Borderline High Risk LDL >160 mg/dL - High Risk Performed By: #### 2089-1 ####[facility] ([id number])[address], [address], [place] [address]JPQ AND AUTO DIFFon 93-60-7636JPSGETTE BASOPHIL0.0 X10E9/LNormal0.0-0.2 [facility] HospitalComment on above:Performed By: #### CBCA, CMP, 08500-7 ####[facility] ([id number])[address] [place] [address]#### 74464-0 ####[facility] ([id number])[address] [facility], [address] [place] [address]EQKXGZEK NEUTROPHIL5.7 X10E9/LNormal1.5-6.6ProUniversity Medical CenterComment on above:Performed By: #### CBCA, CMP, 73844-0 ####[facility] ([id number])[address] [place] [address]#### 83352-9 ####[facility] ([id number])[address] [facility], [address] [place] [address]Mydohjzuw/100 WBC (Bld) 0.5 %NormalProUniversity Medical CenterComment on above:Performed By: #### CBCA, CMP, 88074-3 ####[facility] ([id number])[address] [place] [address]#### 68279-3 ####[facility] ([id number])[address] [facility], [address] [place] [address]Nnohtjxdnak (Bld) [#/Vol] 0.4 10*3/uLNormal0.0-0.4ProUniversity Medical CenterComment on above:Performed By: #### CBCA, CMP, 01038-0 ####[facility] ([id number])[address] [place] [address]778#### 99590-1 ####[facility] ([id number])[address], [address], [place] [address]Wubptbdnory/100 WBC (Bld)3.8 %NormalProUniversity Medical CenterComment on above:Performed By: #### CBCA, CMP, 42552-7 ####[facility] ([id number])[address] [place] [address]#### 05501-2 ####[facility] ([id number])0 [facility], [address] [place] [address]Mkoaogfklru distribution width (RBC) [Ratio]13.6 %Ztedbd85.5-15.0[facility] Comment on above:Performed By: #### CBCA CMP, 72185-7 ####[facility] ([id number])[address] [place] [address]656#### 88606-7 ####[facility] ([id number])0 [facility], [address] [place] [address]Nvcnipjrbe (Bld) [Volume fraction]41.7 %Aoapup76-07CbxGobloiUniversity Medical CenterComment on above:Performed By: #### CBCA, CMP, 50425-3 ####[facility] ([id number])[address] [place] [address]#### 25293-7 ####[facility] ([id number])[address], [address] [place] [address]Cqmrkusdxu (Bld) [Mass/Vol] 14.5 g/wEFllmqv35.0-17.0ProUniversity Medical CenterComment on above:Performed By: #### CBCA, CMP, 55843-9 ####[facility] ([id number])[address] [place] [address]#### 65608-9 ####[facility] ([id number])[address], [address], [place] [address]Czquzaiwqdu (Bld) [#/Vol]2.7 10*3/uLNormal1.0-3.5ProMedica [facility] HospitalComment on above: Performed By: #### CBCA, CMP, 51710-1 ####[facility] ([id number])[address] [place] [address] 10080#### 94797-6 ####[facility] ([id number])[address] [facility], [address], [place] [address]Shksruregzc/100 WBC (Bld)28.1 %NormalProUniversity Medical CenterComment on above:Performed By: #### CBCA, CMP, 72652-0 ####[facility] ([id number])[address] [place] [address]18#### 75013-9 ####[facility] ([id number])[address] [facility], [address], [place] [address]DVN (RBC) [Entitic mass]29.7 ofNjvaeh48-94UbmGwlfhcThe [facility] Comment on above:Performed By: #### CBCA, CMP, 25363-8 ####[facility] ([id number])[address] [place] [address]#### 48036-4 ####[facility] ([id number])[address], [address], [place] [address]FFQU (RBC) [Mass/Vol]34.7 g/dXZgtlwl29-83PczCbhhuwUniversity Medical CenterComment on above:Performed By: #### CBCA, CMP, 11419-3 ####[facility] ([id number])[address] [place] [address] 594[address]#### 18592-4 ####[facility] ([id number])[address], [address], [place] [address]IGN (RBC) [Entitic vol]86 vXPxjsga13-000VfrTlisdl Fremont HospitalComment on above:Performed By: #### CBCHamilton CMP, 05701-7 ####[facility] ([id number])[address] [place] [address] 65126#### 24222-6 ####[facility] ([id number])[address], [address], [place] [address]Muwatiycj (Bld) [#/Vol]0.8 10*3/uLNormal0-0.9ProUniversity Medical CenterComment on above:Performed By: #### CBCHamilton CMP, 92966-0 ####[facility] ([id number])[address] [place] [address] 42172#### 27246-5 ####[facility] ([id number])[address] [facility], [address] [place] [address]Nbidogkmr/100 WBC (Bld) 8.5 %NormalProUniversity Medical CenterComment on above:Performed By: #### CBCHamilton, CMP, 20840-1 ####[facility] ([id number])[address] [place] [address] 87194#### 49963-6 ####[facility] ([id number])0 [facility], [address], [place] [address]Zvwguvnvapu/100 WBC (Bld) 59.1 %NormalProUniversity Medical CenterComment on above:Performed By: #### CBCA, CMP, 03175-0 ####[facility] ([id number])[address] [place] [address] 37854#### 14593-4 ####[facility] ([id number])[address], [address], [place] [address]Tfazuxau mean volume (Bld) [Entitic vol]8.5 fLNormal7-12ProMed[facility] HospitalComment on above: Performed By: #### SENAIT DAVIS, 28422-0 ####[facility] ([id number])[address] [place] [address] 05491#### 70215-5 ####[facility] ([id number])[address] [facility], [address] [place] [address]Vbjghxrmg (Bld) [#/Vol]211 10*3/mFIpibeo937-034ZghZbforp [facility] Comment on above:Performed By: #### SENAIT DAVIS, 58663-8 ####[facility] ([id number])[address] [place] [address] 53182#### 34107-0 ####[facility] ([id number])[address] [facility], [address] [place] [address] 10803OCV COUNT4.86 X10E12/LNormal4.10-5.70ProRegency Hospital Cleveland Westca Santa Paula HospitalComment on above:Performed By: #### SENAIT DAVIS, 65811-0 ####[facility] ([id number])[address] [place] [address] 72061#### 73694-5 ####[facility] ([id number])[address] [facility], [address], [place] [address]QED (Bld) [#/Vol]9.7 10*3/uLNormal4.0-11.0ProUniversity Medical CenterComment on above:Performed By: #### SUSAN CMP, 04941-0 ####[facility] ([id number])[address] [place] [address] 03632#### 48469-9 ####[facility] ([id number])[address] [facility], [address], [place] [address]FZDXWSAOFQFJM METABOLIC PANELon 36-76-1872Hzxknmj [Mass/Vol]4.3 g/dLNormal3.2-5.3Pro[facility] HospitalComment on above:Performed By: #### SENAIT DAVIS, 42239-9 ####[facility] ([id number])[address] [place] [address] 02086#### 98785-4 ####[facility] ([id number])[address] [facility], [address], [place] [address]MWI [Catalytic activity/Vol]76 U/AJfkpwo68-722IwxTjqaqyUniversity Medical CenterComment on above:Performed By: #### SENAIT DAVIS, 30659-5 ####[facility] ([id number])[address] [place] [address] 41681#### 29171-7 ####[facility] ([id number])[address] [facility], [address], [place] [address]JEU [Catalytic activity/Vol]47 U/LHigh0-40ProUniversity Medical CenterComment on above:Performed By: #### SENAIT DAVIS, 88347-1 ####[facility] ([id number])[address] [place] [address] 76487#### 50331-9 ####[facility] ([id number])[address] [facility], [address], [place] [address]Zwlga gap [Moles/Vol]6 mmol/LNormal5-15ProUniversity Medical CenterComment on above: Performed By: #### SUSAN CMP, 02567-6 ####[facility] ([id number])[address] [place] [address] 66108#### 51261-8 ####[facility] ([id number])[address], [address], [place] [address]EYX [Catalytic activity/Vol]26 U/LNormal0-41[facility] Comment on above:Performed By: #### SENAIT DAVIS, 65572-9 ####[facility] ([id number])[address] [place] [address] 18026#### 86928-0 ####[facility] ([id number])[address] [facility], [address] [place] [address]Qgkqxcotr [Mass/Vol]0.9 mg/dLNormal0.3-1.2PDayton VA Medical CenterComment on above:Performed By: #### SENAIT DAVIS, 40203-6 ####[facility] ([id number])[address] [place] [address] 50365#### 10320-3 ####[facility] ([id number])[address] [facility], [address], [place] [address]Ngapojc [Mass/Vol]9.5 mg/dLNormal8.5-10.5PDayton VA Medical CenterComment on above:Performed By: #### SENAIT DAVIS, 67876-2 ####[facility] ([id number])[address] [place] [address] 66128#### 47228-9 ####[facility] ([id number])[address] [facility], [address], [place] [address]Zxvllsqr [Moles/Vol]104 mmol/IBsvpxl59-218EjwOfyyroUniversity Medical CenterComment on above:Performed By: #### SENAIT DAVIS, 04111-5 ####[facility] ([id number])[address] [place] [address] 64672#### 01338-4 ####[facility] ([id number])[address] [facility], [address], [place] [address]OM5 [Moles/Vol]28 mmol/PHzjgdz80-41NpeVrsokv Santa Paula HospitalComment on above:Performed By: #### SENAIT DAVIS, 27297-7 ####[facility] ([id number])[address] [place] [address]#### [id number] ####[facility] ([id number])[address] [address], [place] [address]Ibqrnxzhcf [Mass/Vol] 1.17 mg/dLNormal0.70-1.20ProUniversity Medical CenterComment on above:Result Comment: METHOD TRACEABLE TO IDMS STANDARDPerformed By: #### SENAIT DAVIS, [id number] ####[facility] ([id number])[address] [place] [id number]#### [id number] ####[facility] ([id number])[address] [address]KAD/1.73 sq M.predicted among non-blacks MDRD (S/P/Bld) [Vol rate/Area]72 mL/min/{1.73_m2}Normal>59 ProMEisenhower Medical CenterComment on above:Result Comment: Reported eGFR is based on the CKD-EPI 2020 equation that does not use a race coefficient.Performed By: #### SENAIT DAVIS, 71752-1 ####[facility] ([id number])[address] [place] [address] 51747#### 51892-8 ####[facility] ([id number])[address] [address]Boswwps [Mass/Vol]100 mg/qMZsmb20-53NieSdqtctUniversity Medical CenterComment on above:Performed By: #### SENAIT DAVIS, 39671-7 ####[facility] ([id number])[address] [place] [address]#### 44098-2 ####[facility] ([id number])[facility]0 [facility], [address] [place] [address] 17410Moovpwddn [Moles/Vol]3.7 mmol/LNormal3.5-5.0ProUniversity Medical CenterComment on above:Performed By: #### SENAIT DAVIS, 14791-4 ####[facility] ([id number])[address] [place] [address] 48267#### 36928-5 ####[facility] ([id number])[address] [place] [address], [address] [place] [address] 98515Wjjdutv [Mass/Vol]6.5 g/dL Normal6.0-8.0ProUniversity Medical CenterComment on above:Performed By: #### SENAIT DAVIS, 57344-3 ####[facility] ([id number])[address] [place] [address] 74123#### 98054-0 ####[facility] ([id number])[address] [place] [address], [address] [place] [address] 10934Sjfnzp [Moles/Vol]138 mmol/COwqntq393-016CkqSpjwbj Fremont HospitalComment on above:Performed By: #### SENAIT DAVIS, 81398-7 ####[facility] ([id number])[address] [place] [address] 71326#### 52684-8 ####[facility] ([id number])0 [facility], [address] [place] [address] 24751Rnii nitrogen [Mass/Vol]24 mg/dLHigh5-23ProUniversity Medical CenterComment on above:Performed By: #### SENAIT DAIVS, 95208-7 ####[facility] ([id number])[address] [place] [address] 71825#### 48400-9 ####[facility] ([id number])[address] [facility], [address] [place] [address] 19979Abkuc 1996 panel on 29-34-7377Ojzeygensmu [Mass/Vol]181 mg/nDUizvfc799-029NzfFbwnirMemorial Hermann [facility] on above:Performed By: ###Brigette DAVIS CMP, 14950-3 ####[facility] ([id number])[address] [place] [address] 85938#### 70530-3 ####[facility] ([id number])[address] [facility] [address] [place] [address] 13514Tfulbtdmklq in HDL [Mass/Vol]35 mg/dLLow>39ProUniversity Medical CenterComment on above:Result Comment: HDL <40 mg/dL - High Risk HDL > or = 40mg/dL- Desirable HDL >60 mg/dL - Negative Risk Performed By: ###Brigette DAVIS CMP, 08674-3 ####[facility] ([id number])[address] [place] [address] 74830#### 07654-1 ####[facility] ([id number])[address], [address] [place] [address] 49872Cxchxgcipgb in LDL [Mass/Vol]83 mg/dLNormal<130ProUniversity Medical CenterComment on above:Result Comment: LDL <100 mg/dL - Desirable LDL >160 mg/dL - High Risk Performed By: ###Brigette DAVIS CMP, 09575-1 ####[facility] ([id number])[address] [place] [address] 45920#### 42385-7 ####[facility] ([id number])[address] [place] [address], [address] [place] [address] 22914Fmlwbggvmnk in VLDL [Mass/Vol]63 mg/dLHigh0-30ProUniversity Medical CenterComment on above:Performed By: #### SENAIT DAVIS, 65748-7 ####[facility] ([id number])[address] [place] [address] 04581#### 00598-8 ####[facility] ([id number])[address] [place] [address], [address] [place] [address] 15548THCFOVXWXXL:HDL 5.2High1.0-5.0ProUniversity Medical CenterComment on above:Performed By: #### SENAIT DAVIS, 23611-9 ####[facility] ([id number])[address] [place] [address] 86410#### 70166-5 ####[facility] ([id number])[address] [place] [address], [address] [place] [address] 05503Ldusawfjvjje [Mass/Vol] 316 mg/qWApcw62-949MxaFzwrkeUniversity Medical CenterComment on above:Performed By: #### SENAIT DAVIS, 09823-8 ####[facility] ([id number])[address] [place] [address] 98802#### 33185-9 ####[facility] ([id number])0 [facility], [address] [place] [address] 06605OYVJXWCCFaa 08-24-2024 Magnesium [Mass/Vol]2.3 mg/dLNormal1.8-2.6ProUniversity Medical CenterComment on above:Performed By: #### 10849-8 ####[facility] ([id number])[address] [place] [address] 18616Wvpevjdjn [Mass/Vol]1.8 mg/dL Normal1.8-2.6The Christ HospitalComment on above:Performed By: #### SUSAN, [facility], 08426-3 ####[facility] ([id number])[address] [place] [address] 53906#### 03063-1 ####[facility] ([id number])[address] [place] [address], [address] [place] [address] 61501AK BRAIN WO CONTon 60-05-0303WF BRAIN WO CONTMR BRAIN WO CONT EXAM:MR BRAIN WO CONT [...] Finalized by Baltazar Olivera on 08/24/2024 8:34 AMNormalProUniversity Medical Center POTASSIUMon 11-14-0751Yppkyvtqi [Moles/Vol]3.8 mmol/LNormal3.5-5.0ProUniversity Medical CenterComment on above:Performed By: #### 2823-3 ####[facility] ([id number])[address] [place] [address] 44122EAR AND AUTO DIFFon 59-84-4982IDLCPCOE BASOPHIL0.1 X10E9/LNormal0.0-0.2ProMedica Santa Paula HospitalComment on above:Performed By: #### CBCA, CMP, PINR, 79777-5, THYR #### [facility] ([id number]) [address] [place] [address] 91264 #### HA1C #### [facility] ([id number]) [address] [place] [address], [address] [place], [place] [address]YVEECROW NEUTROPHIL7.5 X10E9/LHigh1.5-6.6ProUniversity Medical CenterComment on above:Performed By: #### CBCA, CMP, PINR, 58391-3, THYR #### [facility] ([id number]) [address] [place] [address] 97113 #### HA1C #### [facility] ([id number]) [address] [place] [address], [address] [place], [place] [address]Zxneljxwq/100 WBC (Bld)0.4 %NormalProUniversity Medical Center Comment on above:Performed By: #### CBCA, CMP, PINR, 17467-4, THYR #### [facility] ([id number]) [address] [place] [address] 22666 #### HA1C #### [facility] ([id number]) [address] [place] [address], [address] [place], [place] [address]Jrqvykmsstb (Bld) [#/Vol]0.4 10*3/uLNormal0.0-0.4ProUniversity Medical CenterComment on above:Performed By: #### CBCA, CMP, PINR, 35984-6, THYR #### [facility] ([id number]) [address] [place] [address] 05096 #### HA1C #### [facility] ([id number]) [address] [facility], [address] [place], [place] [address]Elfdavskokw/100 WBC (Bld)3.0 %NormalProUniversity Medical Center Comment on above:Performed By: #### CBCA, CMP, PINR, 40594-8, THYR #### [facility] ([id number]) [address] [place] [address] 50854 #### HA1C #### [facility] ([id number]) [address] [facility], [address] [place], [place] [address]Yjvmxkfdegf distribution width (RBC) [Ratio]13.6 %Normal 11.5-15.0ProUniversity Medical CenterComment on above:Performed By: #### CBCA, CMP, PINR, 47425-9, THYR #### [facility] ([id number]) [address] [place] [address] 92372 #### HA1C #### [facility] ([id number]) [address] [facility], [address] [place], [place] [address]Lfajrxpqzw (Bld) [Volume fraction]43.1 %Sfodkl50-20VmgPzagmlUniversity Medical CenterComment on above:Performed By: #### CBCA, CMP, PINR, 33983-2, THYR #### [facility] ([id number]) [address] [place] [address] 90193 #### HA1C #### [facility] ([id number]) [address] [facility], [address] [place], [place] [address]Igxhxmvhuc (Bld) [Mass/Vol]14.9 g/nBTfhgpy01.0-17.0ProUniversity Medical CenterComment on above:Performed By: #### CBCA, CMP, PINR, 37812-5, THYR #### [facility] ([id number]) [address] [place] [address] 98090 #### HA1C #### [facility] ([id number]) [address], [address] [place], [place] [address]Xybrsnbhgvt (Bld) [#/Vol]3.1 10*3/uLNormal1.0-3.5ProMedica Santa Paula HospitalComment on above:Performed By: #### CBCA, CMP, PINR, 60842-3, THYR #### [facility] ([id number]) [address] [place] [address] 25518 #### HA1C #### [facility] ([id number]) [address], [address] [place], [place] [address]Zrynvjxusvc/100 WBC (Bld)25.7 %NormalThe Christ Hospital Comment on above:Performed By: #### CBCA, CMP, PINR, 41743-3, THYR #### [facility] ([id number]) [address] [place] [address] 12867 #### HA1C #### [facility] ([id number]) [address], [address] [place], [place] [address]WRM (RBC) [Entitic mass]29.6 juSyeykj97-98BzcZbnvceThe Christ HospitalComment on above:Performed By: #### CBCA, CMP, PINR, 80468-1, THYR #### [facility] ([id number]) [address] [place] [address] 18663 #### HA1C #### [facility] ([id number]) [address], [address] [place], [place] [address]GDWU (RBC) [Mass/Vol]34.5 g/wTTdbmzk96-49UgtFhtqfxUniversity Medical CenterComment on above:Performed By: #### CBCA, CMP, PINR, 11976-4, THYR #### [facility] ([id number]) [address] [place] [address] 79562 #### HA1C #### [facility] ([id number]) [address], [address] [place], [place] [address]CUB (RBC) [Entitic vol]86 fSDolknp04-078TlyYabadaThe Christ HospitalComment on above:Performed By: #### CBCA, CMP, PINR, 81630-4, THYR #### [facility] ([id number]) [address] [place] [address] 17607 #### HA1C #### [facility] ([id number]) [address], [address] [place], [place] [address]Shuoiqysk (Bld) [#/Vol]1.1 10*3/uLHigh0-0.9The Christ HospitalComment on above:Performed By: #### CBCA, CMP, PINR, 42568-7, THYR #### [facility] ([id number]) [address] [place] [address] 27870 #### HA1C #### [facility] ([id number]) [address], [address] [place], [place] [address]Xpirkexvd/100 WBC (Bld)8.8 %[place] Comment on above:Performed By: #### CBCA, CMP, PINR, 91687-5, THYR #### [facility] ([id number]) [address] [place] [address] 75006 #### HA1C #### [facility] ([id number]) [address], [address] [place], [place] [address]Vorkrleuoth/100 WBC (Bld)62.1 %[place] Comment on above:Performed By: #### CBCA, CMP, PINR, 71947-9, THYR #### [facility] ([id number]) [address] [place] [address] 27195 #### HA1C #### [facility] ([id number]) [address], [address] [place], [place] [address]Weqehzka mean volume (Bld) [Entitic vol]8.6 fLNormal7-12 ProMedica Santa Paula HospitalComment on above:Performed By: #### CBCA, CMP, PINR, 14767-0, THYR #### [facility] ([id number]) [address] [place] [address] 07535 #### HA1C #### [facility] ([id number]) [address], [address] [place], [place] [address]Odabixjwk (Bld) [#/Vol]230 10*3/fLNupcpo752-305YnmItqeimThe Christ HospitalComment on above:Performed By: #### CBCA, CMP, PINR, 41941-7, THYR #### [facility] ([id number]) [address] [place] [address] 20773 #### HA1C #### [facility] ([id number]) [address], [address] [place], [place] [address]AEE COUNT5.03 X10E12/LNormal4.10-5.70[facility] Comment on above:Performed By: #### CBCA, CMP, PINR, 76920-1, THYR #### [facility] ([id number]) [address] [place] [address] 10808 #### HA1C #### [facility] ([id number]) [address], [address] [place], [place] [address]VCY (Bld) [#/Vol]12.1 10*3/uLHigh4.0-11.0ProUniversity Medical CenterComment on above:Performed By: #### CBCA, CMP, PINR, 30256-3, THYR #### [facility] ([id number]) [address] [place] [address] 95963 #### HA1C #### [facility] ([id number]) [address] [facility], [address] [place], [place] [address]NFYVUJGVBFGVX METABOLIC PANELon 85-13-2296Bgedlbl [Mass/Vol]5.1 g/dLNormal3.2-5.3PDayton VA Medical CenterComment on above:Performed By: #### CBCA, CMP, PINR, 85272-9, THYR #### [facility] ([id number]) [address] [place] [address] 41111 #### HA1C #### [facility] ([id number]) [address] [facility], [address] [place], [place] [address]ZGG [Catalytic activity/Vol]88 U/BCcfrsd30-940PvoQxfzbdUniversity Medical CenterComment on above:Performed By: #### CBCA, CMP, PINR, 89669-9, THYR #### [facility] ([id number]) [address] [place] [address] 35594 #### HA1C #### [facility] ([id number]) [address] [facility], [address] [place], [place] [address]RNJ [Catalytic activity/Vol]54 U/LHigh0-40ProUniversity Medical CenterComment on above:Performed By: #### CBCA, CMP, PINR, 50833-4, THYR #### [facility] ([id number]) [address] [place] [address] 68123 #### HA1C #### [facility] ([id number]) [address] [facility], [address] [place], [place] [address]Qkykp gap [Moles/Vol]10 mmol/LNormal5-15ProUniversity Medical CenterComment on above:Performed By: #### CBCA, CMP, PINR, 26866-3, THYR #### [facility] ([id number]) [address] [place] [address] 88187 #### HA1C #### [facility] ([id number]) [facility], [address] [place], [place] [address]VUC [Catalytic activity/Vol]32 U/LNormal0-41ProUniversity Medical CenterComment on above:Performed By: #### CBCA, CMP, PINR, 70853-1, THYR #### [facility] ([id number]) [address] [place] [address] 48822 #### HA1C #### [facility] ([id number]) [address] [facility], [address] [place], [place] [address]Putbmyacl [Mass/Vol]0.9 mg/dLNormal0.3-1.2PDayton VA Medical CenterComment on above:Performed By: #### CBCA, CMP, PINR, 48311-8, THYR #### [facility] ([id number]) [address] [place] [address] 76220 #### HA1C #### [facility] ([id number]) [address] [place] [address], [address] [place], [place] [address]Fvseacq [Mass/Vol]9.8 mg/dLNormal8.5-10.5PDayton VA Medical CenterComment on above:Performed By: #### CBCA, CMP, PINR, 84684-2, THYR #### [facility] ([id number]) [address] [place] [address] 68238 #### HA1C #### [facility] ([id number]) [address] [facility], [address] [place], [place] [address]Jwfpiqun [Moles/Vol]102 mmol/KIbcbos31-412RunOlslpzUniversity Medical CenterComment on above:Performed By: #### SUSAN, CMP, PINR, 04842-9, THYR #### [facility] ([id number]) [address] [place] [address] 05255 #### HA1C #### [facility] ([id number]) [address] [facility], [address] [place], [place] [address]YV5 [Moles/Vol]26 mmol/WMyjylx11-91PqnMygavuDayton VA Medical Center Comment on above:Performed By: #### SUSAN, SENAIT, PINR, 36778-3, THYR #### [facility] ([id number]) [address] [place] [address] 98506 #### HA1C #### [facility] ([id number]) [address] [facility], [address] [place], [place] [address]Ovxeikkjka [Mass/Vol]1.20 mg/dLNormal0.70-1.20The Christ HospitalComment on above:Result Comment: METHOD TRACEABLE TO IDMS STANDARD Performed By: #### SUSAN, SENAIT, PINR, 08101-2, THYR #### [facility] ([id number]) [address] [place] [address] 04320 #### HA1C #### [facility] ([id number]) [address] [facility], [address] [place], [place] [address]MRU/1.73 sq M.predicted among non-blacks MDRD (S/P/Bld) [Vol rate/Area]70 mL/min/{1.73_m2}Normal>59ProUniversity Medical CenterComment on above:Result Comment: Reported eGFR is based on the CKD-EPI 2020 equation that does not use a race coefficient.Performed By: #### CBCA, CMP, PINR, 24990-2, THYR #### [facility] ([id number]) [address] [place] [address] 85950 #### HA1C #### [facility] ([id number]) [address] [place] [address], [address] [place], [place] [address]Dtapnuv [Mass/Vol]105 mg/uAEttm13-17SrvMhfamtUniversity Medical Center Comment on above:Performed By: #### CBCA, CMP, PINR, 67522-3, THYR #### [facility] ([id number]) [address] [place] [address] 42824 #### HA1C #### [facility] ([id number]) [address] [place] [address], [address] [place], [place] [address]Hhcrgedyt [Moles/Vol]3.7 mmol/LNormal3.5-5.0ProUniversity Medical CenterComment on above:Performed By: #### CBCA, CMP, PINR, 22064-4, THYR #### [facility] ([id number]) [address] [place] [address] 27111 #### HA1C #### [facility] ([id number]) [address] [place] [address], [address] [place], [place] [address]Qgbwisj [Mass/Vol]7.5 g/dLNormal6.0-8.0ProUniversity Medical CenterComment on above:Performed By: #### CBCA, CMP, PINR, 33897-9, THYR #### [facility] ([id number]) [address] [place] [address] 82722 #### HA1C #### [facility] ([id number]) [address] [facility], [address] [place], [place] [address]Zsvjro [Moles/Vol]138 mmol/YPxdqqp343-192DymVpyqsu Fremont HospitalComment on above:Performed By: #### CBCA, CMP, PINR, 90561-3, THYR #### [facility] ([id number]) [address] [facility], [place] [address] #### HA1C #### [facility] ([id number]) [address], [address] [place], [place] [address]Nlhx nitrogen [Mass/Vol]29 mg/dLHigh5-23The Christ HospitalComment on above:Performed By: #### CBCA, CMP, PINR, 65278-2, THYR #### [facility] ([id number]) [address] [facility], [place] [address] #### HA1C #### [facility] ([id number]) [address] [facility], [address] [place], [place] [address]RW BRAIN WO CONT STROKE ALERTon 97-04-7136YO BRAIN WO CONT STROKE ALERTCT BRAIN WO CONT STROKE ALERT CLINICAL INFORMATION: [...] by Dillon Roth MD on 08/23/2024 5:23 PMNormalThe Christ HospitalCT CTA CAROTIDon 66-65-9393QQ CTA CAROTIDCT CTA CAROTID CT ANGIOGRAM OF THE NECK CLINICAL INFORMATION: Neuro deficit, acute, stroke suspected. TECHNIQUE: CT angiogram performed following intravenous administration of nonionic intravenous contrast. Coronal and sagittal and 3-D volume rendered maximum intensity projection images generated andreviewed under concurrent physician supervision. Automated exposure control utilized. The [place] Symptomatic Carotid Endarterectomy Trial (NASCET) method for calculating the degree of stenosis was utilized for stenosis measurements. COMPARISON: CT head and noncontrast head CT dated 08/23/2024 FINDINGS: There is a standard aortic arch configuration. There is no significant stenosis at the arch originsof the vessels. The visualized portions of the [...] by Jonny Zabala MD on 08/23/2024 5:51 [facility] CenterCT CTA HEADon 82-39-4428GG CTA HEADCT CTA HEAD CT angiogram head with contrast [...] in the diagnosis of large vessel occlusion inpatients undergoing screening for acute ischemic stroke using [...] as low as reasonably achievable. Finalized by Genaro Aguilar MD on 08/23/2024 5:44 PMNormalThe Christ Hospital Glucose Glucometer (BldC) [Mass/Vol]on 31-32-7948Sedpzhp [Mass/Vol]96 mg/dL Aeihng29-33ZgdYdoznzThe Christ HospitalHGB A1C (GLYCO-HGB)on 70-86-4465Bozigcr [Mass/Vol]126 mg/dLNormalThe Christ HospitalComment on above:Performed By: #### CBCA, CMP, PINR, 04705-6, THYR #### [facility] ([id number]) [address] [place] [address] 91041 #### HA1C #### [facility] ([id number]) [address] [facility], [address] [place], [place] [address]HvD4b (Bld) [Mass fraction]6.0 %High4.4-5.6The Christ HospitalComment on above:Result Comment: NOTE ADA Guidelines Result HgbA1c Normal : less than 5.7 % Prediabetes : 5.7 % to 6.4 % Diabetes : > 6.4 % Use with caution in patients with abnormal hemoglobin variants as the half-life of red blood cells and in vivo glycation rates are affected.Performed By: #### CBCA, CMP, PINR, 58249-0, THYR #### [facility] ([id number]) [address] [place] [address] #### HA1C #### [facility] ([id number]) [address], [address] [place], [place] [address]LGTSACL AND INRon 64-11-7632WTF Coag (PPP) [Relative time]0.8 {INR}Low0.9-1.2PDayton VA Medical CenterComment on above:Performed By: #### CBCA, CMP, PINR, 91214-3, THYR #### [facility] ([id number]) [address] [place] [address] #### HA1C #### [facility] ([id number]) [address], [address] [place] [address]QY Coag (PPP) [Time]9.8 sNormal9.8-13.2PDayton VA Medical CenterComhenry ford [facility] on above:Result Comment: NEW REFERENCE RANGEPerformed By: #### CBCA, CMP, PINR, 17215-0, THYR #### [facility] ([id number]) [address] [place] [address] #### HA1C #### [facility] ([id number]) [address], [address] [place], [place] [address]RSSSYID PROFILEon 55-80-8787Sqnz T4 [Mass/Vol]0.77 ng/dLNormal 0.61-1.60The Christ HospitalComment on above:Performed By: #### CBCA, CMP, PINR, 53510-6, THYR #### [facility] ([id number]) [address] [place] [address] #### HA1C #### [facility] ([id number]) [address] [facility], [address] [place] [address]KAV2.48 uIU/mLHigh0.49-4.67ProUniversity Medical CenterComment on above:Performed By: #### CBCA, CMP, PINR, 58685-7, THYR #### [facility] ([id number]) [address] [place] [address] #### HA1C #### [facility] ([id number]) [address] [facility], [address] [place], [place] [address]sGBG Coag (PPP) [Time]on 72-50-7861nJOE Coag (Bld) [Time]27 s Jjuldv71-28KrcXstqxm Piney River HospitalComment on above:Result Comment: NEW REFERENCE RANGEPerformed By: #### CBCA, CMP, PINR, 02310-5, THYR #### [facility] ([id number]) [address] [facility] [address] [place] [address] #### HA1C #### [facility] ([id number]) [address] [facility] [facility], [address] [place] [address] Vital Signs Date TimeVital SignValuePerforming HkkrcwsjgWgwwnake87-74-0652 13:19-0400Body zdiajn394.9 cmEduarda Beth MD Work Phone: [phone] CenterRupotxilxy80-85-5282 13:19-0400Body mass index (BMI) [Ratio]32.17 kg/m2Eduarda Beth MD Work Phone: [phone] CenterFhkwupzycm60-99-3342 13:19-0400Body yadonq67.52 kgEduarda Beth MD Work Phone: [phone] CenterUvwjvhdpuh83-85-2295 13:19-0400Diastolic blood mm[Hg]Eduarda Beth MD Work Phone: [phone] CenterQkmmpqxdhc45-82-5425 13:19-0400Heart rate65 /min Eduarda Beth MD Work Phone: [phone] CenterKhpfwravxv21-96-5555 13:19-0400Respiratory rate18 /minEduarda Beth MD Work Phone: [phone] CenterUynzmzdigy80-27-0003 13:19-0470SjL4% (BldA) [Mass fraction]97 %Eduarda Beth MD Work Phone: [phone] CenterPdnbdnuemv80-29-6082 13:19-0400Systolic blood cqgwpqeq925 mm[Hg]Eduarda Beth MD Work Phone: [phone] CenterWgzbbtrane70-34-3353 09:04-0400Body nltvam326.3 Cher Enriquez APRN-INSTRUCTIONAL TECHNOLOGIST Work Phone: [facility]07-07-2025 09:04-0400Body mass index (BMI) [Ratio]34.41 kg/i7HhvxpLito REYES Work Phone: [phone]-[employer] Iwdoex98-69-8858 09:04-0400Body pjsehv224.69 kgLito REYES Work Phone: [phone]-[facility] HospitaleX[facility] [employer] Lttwvk94-51-6401 09:04-0400Diastolic blood mhavyixe41 mm[Hg]Lito REYES Work Phone: [phone]-[facility] [employer] Mqlkgr30-78-8695 09:04-0400Heart rate 63 /minEalonzo REYES Work Phone: [phone]-[employer] Xmwfah40-53-7497 09:04-0924WlB3% (BldA) [Mass fraction]97 %Lito REYES Work Phone: [phone]-[facility] HospitalPingCo.com Usycck06-69-1438 09:04-0400Systolic blood bcxygqpb057 mm[Hg]Lito REYES Work Phone: [phone]-[facility] HospitalP[facility] Lugpkl76-99-4320 08:53-0400Body vmeaaz275.3 cmEduard Zapata MD Work Phone: [phone]-[employer] Inqpti53-97-9671 08:53-0400Body mass index (BMI) [Ratio]34.26 kg/r5PgrljEduard Zapata MD Work Phone: [phone]-[employer] Zicajo89-19-5425 08:53-0400Body jjruxh622.23 kgEduard Zapata MD Work Phone: [phone]-[facility] HospitalP[facility] Qixddw45-58-7110 08:53-0400Diastolic blood ociemdxk21 mm[Hg]Eduard Zapata MD Work Phone: [phone]-[employer] Kwhfxv08-89-2409 08:53-0400Heart rate 63 /minEduard Zapata MD Work Phone: [phone]-[employer] Pzemqa73-08-6483 08:53-4099NeO1% (BldA) [Mass fraction]98 %Eduard Zapata MD Work Phone: [facility]04-08-2025 08:53-0400Systolic blood mm[Hg]Eduard Zapata MD Work Phone: [facility]03-10-2025 13:06-0400Body hqvpev952.9 cmEduarda Beth MD Work Phone: [facility] CenterUcwygvgafr09-30-9823 13:06-0400Body mass index (BMI) [Ratio]35.19 kg/m2Eduarda Beth MD Work Phone: [facility] CenterBzegyqhcbh72-05-3430 13:06-0400Body fuehil377.86 kgEduarda Beth MD Work Phone: [phone] CenterMeekczyssb56-00-3217 13:06-0400Diastolic blood lhiogfph16 mm[Hg]Eduarda Beth MD Work Phone: [phone] CenterCmebxtwtdg60-14-1653 13:06-0400Heart rate66 /min Eduarda Beth MD Work Phone: [phone] [place], [place] [address]Umpiwqpmei90-40-9336 13:06-0400Respiratory rate18 /minEduarda Beth MD Work Phone: [facility] CenterCoctvoevok14-56-8836 13:06-3798RbZ1% (BldA) [Mass fraction]94 %Eduarda Beth MD Work Phone: [phone] CenterYqjmyswzwg52-17-9117 13:06-0400Systolic blood mklcqvyp609 mm[Hg]Eduarda Beth MD Work Phone: [facility] CenterMmztizafhv90-94-1418 11:47-0500Body zkusbe080.9 cmEduarda Beth MD Work Phone: [facility] CenterZahhxbigpu16-32-3234 11:47-0500Body mass index (BMI) [Ratio]35.92 kg/m2Eduarda Beth MD Work Phone: [facility] CenterYpbydvitpa02-61-5279 11:47-0500Body ogvqbf923.13 kgEduarda Beth MD Work Phone: [facility] CenterDxcobdqocf68-09-4143 11:47-0500Diastolic blood nmjijzgr25 mm[Hg]Eduarda Beth MD Work Phone: [facility]OP[facility] HospitalWozkfpfjdy13-49-2654 11:47-0500Heart rate50 /min Eduarda Beth MD Work Phone: [facility] CenterQydxysvbys28-78-6143 11:47-0500Respiratory rate18 /minEduarda Beth MD Work Phone: [facility] CenterHafghdmhjn57-32-8132 11:47-0612WwZ7% (BldA) [Mass fraction]96 %Eduarda Beth MD Work Phone: [place] [address]Sqcilscphd82-81-0033 11:47-0500Systolic blood tvwkfpoo417 mm[Hg]Eduarda Beth MD Work Phone: [facility] Encounters Encounter DateEncounter TypeCare ProviderFacilityStart: 03-02-2025 End: 39-59-2500Wzsrxz Adwoa Beth MD Work Phone: [facility] MedicineStart: 03-02-2025 End: 92-72-3812Flciuw Adwoa Beth MD Work Phone: [facility] MedicineStart: 03-02-2025 End: 05-20-6838Zprwgt outpatient visit 25 minutesEduarda Beth MD Work Phone: [facility] MedicineComment on above: Subclinical hypothyroidism (Primary Dx); Encounter for immunization; Glucose intolerance; Benign essential HTN ; Hypercalcemia; Encounter for screening for malignant neoplasm of colon; Prostate cancer screeningStart: 03-02-2025 End: 42-22-4182yyowdwpqcpAGQV F BOWERNot AvailableStart: 02-08-2025 End: 54-40-0080FouufnSquoeg Spangler RNPTulane University Medical Centerisiah Physicians CardiologyComment on above:Med RefillStart: 12-27-2024 End: 45-47-7774Bwwrpr outpatient visit 15 minutesLito REYES Work Phone: [facility] CardiologyComment on above:Benign essential HTN (Primary Dx); Cerebrovascular accident (CVA), unspecified mechanism (CMS-HCC); HypercholesteremiaStart: 12-27-2024 End: 64-25-5373kiwtetxanvOBJGA K [facility] HospitalStart: 12-23-2024 End: 90-74-0122Ahezmwzql encounterKaleigh Ariza [facility] Physicians CardiologyStart: 11-16-2024 End: 97-10-0674Iwndksimm encounterEduarda Beth MD Work Phone: [facility] FNR FMStart: 10-14-2024 End: 34-80-4542Vwwasktxb encounterMaxmarissa [facility], A Department of [facility] HospitalComment on above:CancellationStart: 09-30-2024 End: 76-28-5250ulmssugxocYSOKE A [facility] HospitalStart: 09-28-2024 End: 37-80-9497Ceatkh outpatient new 60 minutesTaeler Rene REYES Work Phone: [facility] Physicians CardiologyComment on above: Cerebrovascular accident (CVA), unspecified mechanism (CMS-HCC) (Primary Dx); Hypercholesteremia; Benign essential HTNStart: 09-28-2024 End: 92-45-3509xulfuigodrBSNOR A [facility] HospitalStart: 09-27-2024 End: 89-47-7736Ptieuoega encounterLisa Jeff [facility] Physicians Cardiology Start: 09-16-2024 End: 53-69-1720Ijumi abstractingScankaryn Provider [facility] Physicians CardiologyStart: 09-01-2024 End: 00-55-3229pnbsjrmrpwZLBTAC [facility] HospitalStart: 08-30-2024 End: 22-49-4287Bpuoynyhkwev care manage srvc 7 day dischargeEduarda Beth MD Work Phone: [facility] FMComment on above:Hypercholesteremia (CMS/HCC) (Primary Dx); Benign essential HTN (CMS/HCC); Post-traumatic osteoarthritis of left knee; Cerebrovascular accident (CVA), unspecified mechanism (CMS/HCC); Expressive aphasiaStart: 08-30-2024 End: 44-01-1855ddkraycledEBIX F BOWSallie AvailableStart: 08-25-2024 End: 59-34-5050Mdwrhkdlx encounterEduarda Beth MD Work Phone: [facility] FMStart: 54-06-0066xvkgaxorszFZROBU LÓPEZ [facility] Hospitaltart: 08-23-2024 End: 41-04-4355Kuwpxpvcms and management of inpatientMARY B WONDERLYProMedica Piney River HospitalStart: 05-11-2024 End: 16-83-7001Htwzugb encounter statusEduarda Beth MD Work Phone: [facility] Work Phone: Start: 05-11-2024 End: 85-86-1698Xkwppgrd preventive med est patient 40-64yrsMary Milka Beth MD Work Phone: [facility] FMComment on above:Routine general medical examination at a health care facility (Primary Dx); Benign essential HTN (CMS/HCC); Hypercholesteremia (CMS/HCC); Chest pain, unspecified typeStart: 05-11-2024 End: 84-08-3964suuttbebuhCLQU F Adan AvailableStart: 11-01-2022 End: 09-13-5856qmuzbyrixuFWYVQVXJYGXM LAKSHMIPATHY .Facility:H0Klens: 08-01-2022 End: 22-09-9962erwzaucrlpMG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 Active (08/26/2024) Received from [facility] Exercise Vital Sign Days of Exercise per Week: 2 days Minutes of Exercise per Session: 60 min Stress: No Stress Concern Present (08/26/2024) Received from [facility] [employer] - Occupational Stress Questionnaire Feeling of Stress : Only a little Social Connections: Moderately Integrated (08/26/2024) Received from [facility] Social Connection and Isolation Panel [NHANES] Frequency of Communication with Friends and Family: Once a week Frequency of Social Gatherings with Friends and Family: Three times a week Attends Yarsanism Services: Never Active Member of Clubs or Organizations: Yes Attends Club or Organization Meetings: More than 4 times per year Marital Status: Interpersonal Safety: Not At Risk (08/23/2024) Humiliation, Afraid, Rape, and Kick questionnaire Fear of Current or Ex-Partner: No Emotionally Abused: No Physically Abused: No Sexually Abused: No Housing Instability: Low Risk (08/26/2024) Received from [facility] Housing Stability Vital Sign Unable to [...] mg tablet Reorder IMPRESSIONS/PLAN 1. Hypercholesteremia - [facility] [place] [place] - LDL cholesterol, direct; Future 2. Benign essential HTN - [facility] [place] [place] - LDL cholesterol, direct; Future 3. Cerebrovascular accident (CVA), unspecified mechanism ([facility]) Echocardiogram results reviewed with patient. With hyperdynamic left ventricular systolic function noted. Moderately dilated right atrium and right ventricle with normal right ventricular function. With normal left atrial size. And otherwise normal diastology. Would continue to monitor with serial e chocardiograms he denies to me any loud snoring [...] Eduarda Beth MD Referring Physician: Ana López, DIGITAL STRATEGIST-INSTRUCTIONAL TECHNOLOGIST [address] [place] [address] documented in this encounterNorth Country HospitalInsight Genetics04-07-2025 Miscellaneous Notes* Telephone Encounter - Shara Jeff CMA - 09/27/2024 10:35 AM EDT web care [employer] MESSAGE REMINDER SENT TO PT TO REMIND OF PPC APPT. documented in this encounterWhite HospitalBlue Ridge Networks [id number] Telephone encounter Note* Telephone Encounter - Shara Jeff CMA - 09/27/2024 10:35 AM EDT [employer] MESSAGE REMINDER SENT TO PT TO REMIND OF PPC APPT. [facility]03-[facility] History of Present illness Narrative* Eduarda Beth MD - 08/30/2024 1:20 PM EDT Images from the original note were not [...] pain, headaches, malaise/fatigue, neck pain, orthopnea, palpitations, peripheraledema, PND, shortness of breath or sweats. Agents associated with hypertension include decongestants and NSAIDs. Risk factors for coronary artery disease include dyslipidemia, obesity and sedentary lifestyle. Compliance problems include diet and exercise. Flowsheet Row Office Visit from 08/30/2024 in [facility] with Eduarda Beth MD Hospital Information ED, Hospital or Nursing Home Facility Discharge? Hospital Patient has been contacted within two business days of discharge Yes Diagnosis Cerebrovascular Accident Discharge Date 08/25/24 Discharged To: Home Setting Discharge Hospital [facility] Engagement Call Start Time 1258 Admission Date [...] Event Monitor is scheduled for 09/01/24 at [facility]. Call End Time 1410 History of Present Illness The patient presents for evaluation of a recent stroke, hypertension, and knee pain. He is accompanied by his . He experienced an episode of facial drooping and speech difficulty on Friday, which was preceded bya sensation of breathlessness while laughing with his [...] under the care of a neurologist and senior tax manager, with upcoming appointments scheduled for 10/02/2024 and [...] elevated blood pressure. He has been taking [id number] mg twice daily for knee pain since [...] does not improve. He is currently taking Percocetin the evening for pain management and has [...] FLUID DRAIN 08/23/2024 SPINE SURGERY 2008 VASECTOMY 1992 FAMILY HISTORY: Family History Problem Relation Name Age of Onset COPD Mother Kayla Cancer Father Caemron Benavides SOCIAL HISTORY: Social History Tobacco Use Smoking status: Never Smokeless tobacco: Never Substance Use Topics Alcohol use: Yes Alcohol/week: 1.0 standard drink of alcohol Types: 1 Cans of beer per week Drug use: Never Depression: Not at risk (08/23/2024) Received from [facility] PHQ-2 Total Score: 0 REVIEW OF SYMPTOMS: [...] hydrochlorothiazide 50 mg, spironolactone 50 mg, metoprolol 100mg twice a day, and losartan 100 mg once a day. A refill for hydrochlorothiazide 50 mg will be sentto his pharmacy. He is also on Lipitor 40 mg. He is advised to monitor his blood pressure regularlyand report any significant changes. 3. Knee pain. He has been experiencing knee pain since he was 15 years old. He has been taking ibuprofen 400 mg twice daily for knee pain since he was 15 years old but has not taken it since last Friday. He is considering knee replacement surgery if his condition does not improve. He is currently taking Percocetin the evening for pain management and has Tylenol available at home. He is advised to use Tylenol during the day for pain management. Follow-up The patient will follow up in 6 months. documented in this [facility]03-05-2025 Telephone encounter Note* Telephone Encounter - Lalita Sena - 08/25/2024 9:52 AM EST Pt is scheduled on the for his holter monitor at [facility] and wonders if there is anyway you can have it moved up. His hospital follow up is scheduled with you on the [facility] [id number] Miscellaneous Notes* Telephone Encounter - Lalita Sena - 08/25/2024 9:52 AM EST Pt is scheduled on the for his holter monitor at [facility] and wonders if there is anyway you can have it moved up. His hospital follow up is scheduled with you on the documented in this [facility]11-19-2024 History of Present illness Narrative* Eduarda Beth MD - 05/11/2024 11:40 AM EST Images from the original note were not [...] football days, which occasionally flare up but usuallysubside within a few days. He recalls a recent incident where his knee locked up while bowling withhis grandson. He has previously received cortisone injections for his knee but does not believe he currently requires them. He reports no chest pain or breathing difficulties during physical activity. However, he recalls anepisode of indigestion and unusual tightness after climbing several flights of stairs at a theater.10 days ago He has never undergone an [...] especially after certain activities. He is advised tocontinue monitoring and avoid activities that exacerbate the pain. 4. Cardiac evaluation. The patient experienced some tightness in the chest after climbing several flights of stairs, whichhe attributes to indigestion. Cardiac enzymes will be checked, and an EKG will be performed today. A stress test on the heart was recommended patient declined understands risk of sudden with cardiac ischemia documented in this encounterSaint Joseph Health [id number] NoteCONSULTATION CONSULTATION DATE: 08/01/2022 HISTORY OF PRESENT ILLNESS: [...] unless otherwise indicated. Patient agrees with this plan.[facility] [id number] NoteCONSULTATION CONSULTATION DATE: 05/02/2022 HISTORY OF PRESENT ILLNESS: This is a 56-year-old gentleman returning to the clinic for a three month appointment for medication maintenance and refills. 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 Patient agrees with this plan.[facility] [id number] NotePROCEDURE: XR KNEE LT 4V or > COMPARISON: None. HISTORY: Pain in left knee FINDINGS: BONES:No acute fracture or dislocation. Moderate tricompartmental osteoarthropathy with joint space narrowing marginal osteophyte formation. Surgical jay from prior anterior cruciate ligament repair. SOFT TISSUES:Negative. No visible soft tissue swelling. EFFUSION:Moderate to large suprapatellar joint effusion OTHER: Negative. IMPRESSION: Moderate osteoarthritis with joint effusion Electronically authenticated by: THANG KOROMA Date: 2022-01-31 18:30[facility] HospitalWgiithjg47-15-1148 NoteCONSULTATION CONSULTATION DATE: 01/31/2022 HISTORY OF PRESENT ILLNESS: [...] seen in three months' time unless otherwise indicated.[facility] [id number] NoteCONSULTATION CONSULTATION DATE: 11/08/2021 This is a pleasant [...] patient agrees with the plan of care. [facility] Signed and Approved by: NICKOLAS OSEI . 11/12/2021 15:06:00[facility]* Diagnosis Routine general medical examination at a health care facility- Primary Benign essential HTN (CMS/HCC) Hypercholesteremia (CMS/HCC) Pure hypercholesterolemia Chest pain, unspecified type documented in this encounter [facility] HealthcareEvaluation note* Diagnosis Hypercholesteremia (CMS/HCC)- Primary Pure hypercholesterolemia Benign essential HTN (CMS/HCC) Post-traumatic osteoarthritis of left knee Cerebrovascular accident (CVA), unspecified mechanism (CMS/HCC) Expressive aphasia documented in this encounter [facility] HealthcareEvaluation note* Diagnosis Cerebrovascular accident (CVA), unspecified mechanism (CMS-HCC)- Primary Hypercholesteremia Pure hypercholesterolemia Benign essential HTN [facility]* Diagnosis Benign essential HTN- Primary Cerebrovascular accident (CVA), unspecified mechanism (CMS-HCC) Hypercholesteremia Pure hypercholesterolemia documented in this [facility]* Diagnosis Subclinical hypothyroidism- Primary Other specified acquired hypothyroidism Encounter for immunization Glucose intolerance Benign essential HTN Hypercalcemia Encounter for screening for malignant neoplasm of colon Prostate cancer screening Special screening for malignant neoplasm of prostate documented in this encounter [facility] HealthcareInstructionsNot on filedocumented in this encounterProMadison Health SystemInstructionsNot on filedocumented in this encounterKettering Health [facility] SystemInstructionsNot on filedocumented in this encounterKettering Health [facility] SystemInstructionsNot on filedocumented in this encounterKettering [facility] InstructionsNot on filedocumented in this encounterK[facility] InstructionsNot on filedocumented in this encounterK[facility] Summary Purpose Family History No Family History Records FoundNo Family History Records FoundNo Family History Records Found Advance Directives No Advanced Directives Records Found Date ActivatedDate InactivatedComments08/23/2024 7:40 PM08/24/2024 6:05 PM Additional Source Comments (unrecognized sect ion and content) No Status Records FoundNo Status Records FoundNo Status Records Found INFORMATION SOURCE (unrecogn ized section and content) DATE CREATED AUTHOR 11/02/[address] [facility] DATE CREATED AUTHOR AUTHOR'S ORGANIZ ATION 12/30/2024 [facility] DATE CREATED AUTHOR AUTHOR'S ORGANIZ ATION 03/04/2025 [facility] EPIC Reason for Visit (unrecogniz ed section and content) ReasonCommentsAnnual ExamReasonCommentsHospital Follow-upReasonCommentsNew PatientNP IP [facility], LABS AT [facility] EM 3-12 FOR 30 DAYS SCHED W/ PTSpecialty Diagnoses / ProceduresReferred By ContactReferred To ContactCardiology Diagnoses Hypercholesteremia Benign essential HTN Diastolic congestive heart failure, NYHA class 1, unspecified congestive heart failure chronicity ([facility]) Ana López, DIGITAL STRATEGIST-INSTRUCTIONAL TECHNOLOGIST [address] [place] [address] Phone: tel: fax: Cardiology, [facility] [address] [place] [address] Phone: tel: fax: Referral IDStatusReasonStart DateExpiration DateVisits RequestedVisits [id number] Review Specialty Services Required /[id number] YgabFbjmfvibKmhdpyxtlmdj23/24/2025ReasonComments Follow-upEST PT F/U 3 MS L/S BD SCHED W/PTReasonOnset DateCommentsMed Refill 02/08/2025ReasonCommentsHypertension Care Teams (unrecognized sec tion and content) Team MemberRelationshipSpecialtyStart DateEnd Date Eduarda Beth MD [address] [place] [address] PCP - GeneralFamily Medicine10/29/22Team MemberRelationshipSpecialtyStart DateEnd Date Eduarda Beth MD [address] [place] [address] PCP - GeneralFamily Medicine10/29/22Team MemberRelationshipSpecialtyStart DateEnd Date Eduarda Beth MD [address] [place] [address] PCP - GeneralFamily Medicine10/29/22Team MemberRelationshipSpecialtyStart DateEnd Date Eduarda Beth MD [address] [place] [address] PCP - GeneralFamily Medicine08/25/24Team MemberRelationshipSpecialtyStart DateEnd Date Eduarda Beth MD [address] [place] [address] PCP - GeneralFamily Medicine08/25/24Team MemberRelationshipSpecialtyStart DateEnd Date Eduarda Beth MD [address] [place] [address] PCP - GeneralFamily Medicine08/25/24Team MemberRelationshipSpecialtyStart DateEnd Date Eduarda Beth MD [address] [place] [address] PCP - GeneralFamily Medicine08/25/24Team MemberRelationshipSpecialtyStart DateEnd Date Eduarda Beth MD [address] [place] [address] PCP - GeneralFamily Medicine10/29/22Te MemberRelationshipSpecialtyStart DateEnd Date Eduarda Beth MD [address] [place] [address] PCP - GeneralFamily Medicine08/25/24Team MemberRelationshipSpecialtyStart DateEnd Date Eduarda Beth MD [address] [place] [address] PCP - GeneralFamily Medicine08/25/24Team MemberRelationshipSpecialtyStart DateEnd Date Eduarda Beth MD [address] [place] [address] PCP - GeneralFamily Medicine10/29/22 FOR RECORDS PERTAINING TO PATIENTS WHO ARE [...] BE BASED ON THE PRIMARY CLINICAL RECORDS. [employer] [facility]. provides no warranty or guarantee of the accuracy or completeness of information in this document.
--- OUTSIDE RECORDS SUMMARY | 2025-05-05 12:52 | XMS_ITS | Patient Health Record ---
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 Name Role Phone Josefina NICHOLAS, Juwan Primary Care Provider Unavailab le Reason For Referral No Information Medications Medication SIG (Take, Route, Frequency, Duration) Notes Start Date End Date Status Altace 10 mg ActiveToprol XL 100 mgtablet, extended finvtcl2106/23/1899ActiveDaypro 600 dbkycvjr56/01/1900ActiveLidoderm 5%film ActiveNorco 325 mg-10 mg wjipsu6306/23/1899ActiveNorflextablet, extended yajjygy1406/23/1899ActiveNeurontin 300 pasgcpzdz61/01/1900Active Plan Of Treatment No Information Insurance Providers Payer Name Payer Address Payer Phone Subscriber Number Group Number Insured Name Patient Relationship to Insured Coverage Start Date Coverage End Date SELF PAY ON PATIENT DEMOGRAPHICS Naya Forde - patient is the [id number]
--- NOTE | 2025-05-05 13:17 | PM.CN ---
Consult Note: HPI Data of Consult Patient: known to practice within the last 3 years Requesting Physician: Poly Kurtz NP Primary Care Provider: RICO MCDONNELL Consult Narrative Reason for consult: f/u Narrative: Jose Forde a pleasant 59 year old male presents for evaluation and management of chronic thoracic back pain post surgical repair. Patient has been doing well on current medication regimen, noticing improvement in pain and function, no side effects from medications. Pain today 1/10 pressure worse with activity, improved with rest and heat. Patient has been able to continue to do housework, golf, ride in the car for long periods of time, and engage in social activities, improved sleep as his pain is well controlled with his medications and HEP. cc:: CC: Poly Kurtz NP Review of Systems ROS Status of ROS 10 or more systems reviewed and unremarkable except as noted in history and below Musculoskeletal Reports: back pain Meds Home Medications and Allergies Home Medications ?Medication ?Instructions ?Recorded ?Confirmed ?Type atorvastatin 10 mg tablet (Lipitor) 10 mg PO DAILY 02/20/23 02/20/23 History hydrochlorothiazide 25 mg tablet 25 mg PO DAILY 02/20/23 02/20/23 History losartan 100 mg tablet 100 mg PO DAILY 02/20/23 02/20/23 History metoprolol tartrate 100 mg tablet 100 mg PO BID 02/20/23 02/20/23 History (Lopressor) spironolactone 25 mg tablet 25 mg PO DAILY 02/20/23 02/20/23 History (Aldactone) baclofen 10 mg tablet 10 mg PO TID 05/12/24 05/12/24 History naloxone 4 mg/actuation nasal 4 mg intranasal Q2M PRN opioid 10/01/24 Rx spray (Narcan) overdose #2 ea oxycodone-acetaminophen 5 mg-325 1 tab PO DAILY PRN pain #30 tabs 02/03/25 Rx mg tablet (Percocet) tizanidine 4 mg tablet 8 mg (2 x 4 mg) PO HS PRN muscle 02/03/25 Rx spasticity #60 tabs oxycodone-acetaminophen 5 mg-325 1 tab PO .QD PRN pain #30 tabs 03/07/25 Rx mg tablet (Percocet) oxycodone-acetaminophen 5 mg-325 1 tab PO DAILY PRN pain #30 tabs 04/05/25 Rx mg tablet (Percocet) Allergies Allergy/AdvReac Type Severity Reaction Status Date / Time No Known Drug Allergies Allergy Verified 02/20/23 12:36 Exam Constitutional Documenting provider has reviewed patient's vital signs: yes Common normals: no apparent distress, oriented x3, healthy appearing, alert and well nourished General appearance: cooperative Nutritional appearance: overweight HENMT Common normals: normocephalic, hearing grossly normal bilaterally and moist oral mucous membranes Head and scalp: normocephalic Eye Common normals: PERRL Pupil: PERRL Neck & C-Spine Common normals: full ROM General: normal visual inspection Chest Common normals: inspection of chest normal Respiratory Common normals: normal respiratory effort, no retractions and no use of accessory muscles Back & Pelvis Thoracic spine/upper back: ROM limited, pain with ROM, thoracic spinal tenderness, paraspinal muscle tenderness and paraspinal muscle spasm Thoracic paraspinal muscle spasm: right Right thoracic paraspinal muscle spasm: T6, T7 and T8 Lumbar spine/lower back: normal to inspection and lumbar ROM normal; no paraspinal muscle spasm and straight leg raise positive Extremity Common normals: normal to inspection, full ROM, no joint enlargement, no calf tenderness and no pedal edema Neuro Common normals: oriented x3, CN's II-XII intact bilaterally, moves all extremities, no focal motor deficits, no sensory deficits noted and deep tendon reflexes 2+ bilaterally Sensorium/orientation: alert Motor exam: strength 5/5 throughout and no movement abnormalities noted Psych Common normals: mental status grossly normal, thought process normal, cooperative, affect normal, speech normal and activity/motor behavior normal Speech: normal speech Thought process: normal thought process Results Additional Findings Additional findings: If on a controlled substance or opioids, I have checked an [place] report on this patient and there are no aberrancies noted in the prescribing history.??If on a controlled substance or opioid a drug screen was completed and reviewed within the last year, and if there has not been a drug screen completed we ordered one today to monitor higher risk, state monitored pain medication use. As part of providing excellent, safe, comprehensive care, the following was completed at our patient's visit: 1. A medication reconciliation and review to ensure accurate knowledge of current/active medications, including asking our patients to inform us about any [id number] medications or herbal remedies/nutritional supplements/alternative remedies. 2. A review to specifically ensure our patients have had annual screening for screening for depression, screening for tobacco use, and screening for unhealthy alcohol use. For concerning screenings had a discussion with the patient, provided patient education, and recommended follow-up with primary care provider when appropriate. If patient noted with a risk of falling, they received education on strength, gait, and balance training to prevent future risk of falling. Portions of this note may have been carried over from the previous visit and updated as appropriate. Please note this office utilizes paper charting in addition to the electronic medical record. A list of current medications, vitals, and PMH is available there as the clinical staff outside of myself do not have access to [facility] charting during the clinic day operations. As part of providing quality comprehensive care the current medications, vitals, and PMH were reviewed in the paper chart. Assessment and Plan Assessment and Plan (1) Thoracic spondylosis: (2) Chronic prescription opiate use: Assessment and Plan: Medications help patient to complete ADLs, care for self, work I have refilled the patient's opioid prescriptions at the above noted dose and schedule.? I feel these medications are improving the patient's quality of life and allow them to tolerate activities of daily living as well as participate in recreational activity.? The patient does not report intolerable side effects. The patient is NOT opioid naive and non-pharmacologic and non-opioid treatment has failed to significantly relieve the patient's pain and improve functionality. The patient has a diagnosis that is related to a somatic or visceral pain etiology. ? ?? I reviewed with the patient the potential risks and side effects with the use of?opioid medications including but not limited to respiratory depression,? sedation, and even . I verified the patient has access to naloxone should?these effects occur. I advised the patient to avoid the use of any other? sedation substances including alcohol, THC, and benzodiazepines while?taking opioid medications due to the risk of compounding side effects and? detrimental outcomes. I reviewed the [employer], pain treatment agreement, urine?drug screen, and opioid start talking forms. The patient was advised to let? their family know they had Naloxone in case they would need to administer?the medication.? ?? A drug screen was completed within the last year, and no aberrancies were noted regarding their use of controlled substances. The patient understands they are subject to the terms and conditions of the pain contract that they have signed. ? ?? I have checked an [place]AR[place] report on this patient today and there are no aberrancies noted in the prescribing history.? (3) Muscle spasm: Plan declining additional PT at this time, pain well controlled continue percocet 5-325mg QD PRN moderate to severe pain continue tizanidine 8mg HS, can trial 2-4mg daytime PRN for pain/spasms cannot take NSAIDs due to HTN continue stretching to assist in myofascial pain/spasms f/u 3 months for medication management, sooner if needed
== END 2025-05-05 12:49 | disposition home or self-care (01) ==
LOC: PM 12:48
PROVIDERS: PCP Family Medicine; Visit Provider Nurse Practitioner
DX: M47.814 Spondylosis without myelopathy or radiculopathy, thoracic region (principal); Z79.891 Long term (current) use of opiate analgesic; M62.838 Other muscle spasm
CPT/HCPCS: G0463